=== PATIENT | female | born 1960 | race Caucasian/White ===

== ENCOUNTER 2017-05-11 13:52 | Emergency (ER) | payer OTHER ==
[~2017-05-11] VITALS: Ht 165.1 cm; Wt 76.0 kg
[2017-05-11 13:58] VITALS: BP 130/84; PULSE 93; RESP 16; TEMP 99.6; O2SAT 97
[2017-05-11] MEDS ORDERED: DICY20TA10 PO (14:13)
[2017-05-11] MEDS ORDERED: AMLO10TA2 PO (14:13)
[2017-05-11] MEDS ORDERED: ALPR1TAB3 PO (14:13)
[2017-05-11] MEDS ORDERED: FOLI1TAB6 PO (14:13)
[2017-05-11] MEDS ORDERED: FURO40TA PO (14:13)
[2017-05-11] MEDS ORDERED: HYDR-3798 PO (14:14)
[2017-05-11] MEDS ORDERED: POTA-163 PO (14:14)
[2017-05-11] MEDS ORDERED: ZYPR5TAB PO (14:14)
[2017-05-11] MEDS ORDERED: PROM25TA10 PO (14:14)
[2017-05-11] MEDS ORDERED: TERA2CAP3 PO (14:14)
[2017-05-11] MEDS ORDERED: TIZA4CAP3 PO (14:14)
--- NOTE | 2017-05-11 14:45 | PD ---
HPI Chief Complaint: Fever Time Seen by Provider: 14:32 Travel History International Travel<30 days: No Contact w/Intl Traveler<30days: No Traveled to known affect area: No History of Present Illness HPI So 56-year-old woman who presents to the emergency department multiple complaints. It sounds like she moved to [place] about a month or so ago. She has a history of anxiety. She is being treated for pneumonia when she first moved down. She states she came to the emergency department because she was "just not feeling good". She states that despite being on her for months she has really been out of the house She hasn't been feeling well. She's had persistent cough. She endorses she had some fevers today. She also states she' s had some leg swelling. States that she takes Lasix about one pill a day but doesn't know the doses. She has not established a primary physician or psychiatrist since being down here. She has a generally positive review of systems. History Past Medical History Narrative Medical Edema Hypertension Anxiety Influenza Vaccination: Yes Social History Alcohol Use: No Tobacco Use: No Allergies-Medications (Allergen,Severity, Reaction): Coded Allergies: Penicillin (Verified Adverse Reaction, Mild, HOT AND VOMITS, 05/11/17) Reported Meds & Prescriptions Reported Meds & Active Scripts Active Reported Phenergan (Promethazine HCl) 25 Mg Tablet 25 Mg PO Q6H PRN Tizanidine (Tizanidine HCl) 4 Mg Cap 4 Mg PO TID Hydralazine HCl 10 Mg Tablet 10 Mg PO TID Terazosin (Terazosin HCl) 2 Mg Cap 2 Mg PO HS Zyprexa (Olanzapine) 5 Mg Tab 5 Mg PO BID Potassium Chloride ER (Potassium Chloride) 20 Meq Tab 20 Meq PO BID Dicyclomine (Dicyclomine HCl) 20 Mg Tab 20 Mg PO QID Folic Acid 1 Mg Tablet 1 Mg PO DAILY Furosemide 40 Mg Tab 40 Mg PO DAILY Amlodipine (Amlodipine Besylate) 10 Mg Tab 10 Mg PO DAILY Alprazolam 1 Mg Tab 1 Mg PO Q8H PRN Review of Systems ROS Limitations: Poor Historian Physical Exam Narrative GENERAL: 56-year-old woman, no acute distress. SKIN: Focused skin assessment warm/dry. NECK: Trachea midline. No JVD. CARDIOVASCULAR: Regular rate and rhythm. No murmur appreciated. RESPIRATORY: Lungs are clear to auscultation. Normal rate and effort. No adventitious lung sounds. GASTROINTESTINAL: Abdomen soft, non-tender, nondistended. Hepatic and splenic margins not palpable. MUSCULOSKELETAL: No obvious deformities. Trace edema bilateral lower extremities NEUROLOGICAL: Awake and alert. No obvious cranial nerve deficits. Motor grossly within normal limits. Normal speech. PSYCHIATRIC: Appropriate mood and affect; insight and judgment normal. Data Data Last Documented VS Vital Signs Date Time Temp Pulse Resp B/P Pulse Ox O2 Delivery O2 Flow Rate FiO2 05/11/17 13:58 99.6 93 16 130/84 97 Orders Chest, Pa & Lat (05/11/17 ) [facility] Medical Decision Making Medical Screen Exam Complete: Yes Emergency Medical Condition: Yes Interpretation(s) Chest x-ray: Negative Differential Diagnosis Pneumonia, URI, depression, occult infection, other Narrative Course Medical decision making Is a 56-year-old woman who presents emergent part states she just doesn't feel well after she had pneumonia 4 weeks ago. She has concomitant psychiatric disease as well. She has no primary psychiatrist down here. Chest x-rays negative. I think she needs outpatient primary care follow-up. She was given information for the [facility]. She states she supposed to using albuterol but does not have any. We'll give her prescription for albuterol inhaler, and some Mucinex, and recommend close outpatient follow-up. Diagnosis Primary Impression: Generalized weakness Additional Impression: Cough Referrals: [facility] 1 week [facility] 1 week Additional Instructions: Follow-up with a primary physician here locally. Return to the emergency department for any new or worsening symptoms. Med/Other Pt SpecificInfo: Prescription(s) given Scripts Dextromethorphan-Guaifenesin ER 12 HR (Mucinex DM Maximum Strength)60-1,200 Mg Tab1 Tab PO BID PRN (CHEST CONGESTION AND/OR COUGH) #14 TAB Prov:Sav Godoy MD 05/11/17 Albuterol 18 GM Inh (Ventolin Hfa 18 GM Inh)90 Mcg/Act Aer2 Puff INH Q4-6H PRN ( SHORTNESS OF BREATH) #1 INHALER Prov:Sav Godoy MD 05/11/17 Disposition: 01 DISCHARGE HOME Condition: Stable Sav Godoy MD May 11, 2017 14:45
--- NOTE | 2017-05-11 14:47 | RADRPT ---
EXAM DATE/TIME: 05/11/2017 14:39 [facility] COMPARISON: No previous studies available for comparison. INDICATIONS : Cough MEDICAL HISTORY : None. SURGICAL HISTORY : None. ENCOUNTER: Initial ACUITY: 3 days PAIN SCORE: 0/10 LOCATION: Bilateral chest FINDINGS: PA and lateral views of the chest demonstrate the lungs to be symmetrically aerated without evidence of mass, infiltrate or effusion. The cardiomediastinal contours are unremarkable. Scoliosis otherwi se negative. CONCLUSION: Negative for acute process. Duarte Ceron MD FACR on May 11, 2017 at 14:44 Board Certified Radiologist. This report was verified electronically.
[2017-05-11] MEDS ORDERED: VENTAER INH (15:00)
[2017-05-11] MEDS ORDERED: DEXT1TAB18 PO (15:00)
[2017-05-11 15:10] VITALS: BP 142/76; PULSE 78; RESP 16; O2SAT 97
== END 2017-05-11 15:10 | disposition home or self-care (01) ==
LOC: PHED 13:52
DX: R53.1 Weakness (principal); R05 Cough; R53.81 Other malaise; R50.9 Fever, unspecified; R60.0 Localized edema; I10 Essential (primary) hypertension; Z86.59 Personal history of other mental and behavioral disorders
CPT/HCPCS: 71020; 99283

== ENCOUNTER → 2017-06-04 | Outpatient (CLI) | payer OTHER ==
[~2017-06-04] MED LIST: ALPR1TAB3 PO; AMLO10TA2 PO; DEXT1TAB18 PO; DICY20TA10 PO; FOLI1TAB6 PO; FURO40TA PO; HYDR-3798 PO; POTA-163 PO; PROM25TA10 PO; TERA2CAP3 PO; TIZA4CAP3 PO; VENTAER INH; ZYPR5TAB PO
--- NOTE | 2017-06-05 19:14 | EKG ---
Date Performed: 06/04/2017 Time Performed: 13:27:56 PTAGE: 57 years EKG: Sinus rhythm POSSIBLE RIGHT VENTRICULAR CONDUCTION DELAY BORDERLINE ECG NO PREVIOUS TRACING DOCTOR: Kishan Lara Interpretating Date/Time 06/05/2017 19:12:28
== END ==
LOC: HCAV 13:16
PROVIDERS: ATTEND Psychiatry & Neurology Child & Adolescent Psychiatry
DX: F41.0 Panic disorder [episodic paroxysmal anxiety] (principal); F20.0 Paranoid schizophrenia; F43.12 Post-traumatic stress disorder, chronic; F03.91 Unspecified dementia, unspecified severity, with behavioral disturbance; R94.31 Abnormal electrocardiogram [ECG] [EKG]
CPT/HCPCS: 93005

== ENCOUNTER → 2017-06-26 | Outpatient (CLI) | payer OTHER ==
[~2017-06-26] MED LIST changes: +AMLO10 PO; +BUTA1CAP PO; +CLON0.1T PO; +ESCI10TA PO; +GABA100C4 PO; +IBUP800T23 PO; +LORA-474 PO; +PANT40TA3 PO; +QUET1TAB7 PO; +QUET1TAB8 PO; +SERO100T PO; +TIZA4 PO; +TRAZ100T6 PO; +VENL1CAP38 PO; +VENL25TA PO; +VENL75CA44 PO; +VENL75TA PO; +VIST50CA PO; +ZOFR4TAB3 SL
--- NOTE | 2017-06-27 08:35 | EKG ---
Date Performed: 06/26/2017 Time Performed: 13:08:52 PTAGE: 57 years EKG: Sinus rhythm NORMAL ECG PREVIOUS TRACING : 06/04/2017 13.27 DOCTOR: Adalid Novoa Interpretating Date/Time 06/27/2017 08:29:51
== END ==
LOC: HCAV 12:41
PROVIDERS: ATTEND Psychiatry & Neurology Child & Adolescent Psychiatry
DX: I20.0 Unstable angina (principal); F41.0 Panic disorder [episodic paroxysmal anxiety]; F03.91 Unspecified dementia, unspecified severity, with behavioral disturbance; F43.12 Post-traumatic stress disorder, chronic; F60.3 Borderline personality disorder
CPT/HCPCS: 93005

== ENCOUNTER 2017-07-07 18:44 | Emergency (ER) | payer OTHER ==
[2017-07-07] VITALS (8 sets, daily range): BP systolic 177–224; BP diastolic 82–119; PULSE 68–86; RESP 16–18; TEMP 98.7; O2SAT 98–99
[~2017-07-07] VITALS: Ht 165.1 cm; Wt 80.0 kg
[~2017-07-07 18:44] MED LIST changes: -AMLO10 PO; -BUTA1CAP PO; -CLON0.1T PO; -ESCI10TA PO; -GABA100C4 PO; -IBUP800T23 PO; -LORA-474 PO; -PANT40TA3 PO; -QUET1TAB7 PO; -QUET1TAB8 PO; -SERO100T PO; -TIZA4 PO; -TRAZ100T6 PO; -VENL1CAP38 PO; -VENL25TA PO; -VENL75CA44 PO; -VENL75TA PO; -VIST50CA PO; -ZOFR4TAB3 SL
[2017-07-07] MEDS ORDERED: hydrALAZINE HCL 20 MG/ML VIAL IV PUSH ONE (19:45)
[2017-07-07] MEDS ORDERED: SODIUM CHLORIDE 0.9% FLUSH 10 ML FLUSH IVF PRN (19:45)
[2017-07-07] MEDS ORDERED: ONDANSETRON HCL 4 MG/2 ML VIAL IVP ONE (19:45)
--- NOTE | 2017-07-07 20:14 | RADRPT ---
EXAM DATE/TIME: 07/07/2017 19:54 [facility] COMPARISON: No previous studies available for comparison. INDICATIONS : Right posterior hip pain. MEDICAL HISTORY : Hypertension. SURGICAL HISTORY : None. ENCOUNTER: Initial ACUITY: 3 months PAIN SCORE: 10/10 LOCATION: Right posterior hip FINDINGS: No definite fractures, or dislocations are identified. No definite lytic or sclerotic lesion is seen . The joint space is well maintained. CONCLUSION: Unremarkable study. Sue Renee MD on July 07, 2017 at 20:12 Board Certified Radiologist. This report was verified electronically.
[2017-07-07 20:21] LABS: AUTOMATED NEUTROPHIL # 3.5 TH/MM3 (1.8-7.7); BASOPHIL % 0.2 % (0.0-2.0); EOSINOPHIL % 0.8 % (0.0-4.0); HEMATOCRIT 39.4 % (35.0-46.0); HEMO FLAGS DIFF FINAL; LYMPH % 24.2 % (9.0-44.0); LYMPHOCYTE # 1.2 TH/MM3 (1.0-4.8); MEAN CELL VOLUME 89.4 FL (80.0-100.0); MEAN CORPUSCULAR HEMOGLOBIN 31.2 PG (27.0-34.0); MEAN CORPUSCULAR HGB CONC 34.9 % (32.0-36.0); MONO % 6.7 % (0.0-8.0); NEUT % 68.1 % (16.0-70.0); PLATELET COUNT 197 TH/MM3 (150-450); RED BLOOD COUNT 4.41 MIL/MM3 (4.00-5.30); RED CELL DISTRIBUTION WIDTH 12.7 % (11.6-17.2)
[2017-07-07 20:28] LABS: POTASSIUM 3.4 MEQ/L (3.5-5.1)
[2017-07-07 20:31] LABS: BICARBONATE 27.9 MEQ/L (21.0-32.0); MAGNESIUM 2.1 MG/DL (1.5-2.5)
[2017-07-07 20:59] LABS: BLOOD, URINE NEG (NEG); GLUCOSE,URINE NEG (NEG); KETONE, URINE NEG (NEG); NITRITE,URINE NEG (NEG); PH, URINE 6.5 (5.0-8.5)
[2017-07-07] MEDS ORDERED: cloNIDine HCL 0.1 MG TAB PO ONE (21:00)
[2017-07-07] MEDS ORDERED: LORazepam 1 MG TAB PO ONE (21:00)
[2017-07-07 21:07] LABS: RBC, URINE 0-2 /hpf (0-3); URINE COLOR STRAW (YELLW/STRAW); WBC, URINE 0-2 /hpf (0-5)
[2017-07-07 21:08] LABS: COMMENT (UR) CULT NOT INDICATED; CULTURE IF INDICATED CULT NOT INDICATED; SQUAMOUS EPITHELIAL CELL URINE 0-5 /hpf (0-5)
--- NOTE | 2017-07-07 21:22 | RADRPT ---
EXAM DATE/TIME: 07/07/2017 21:01 [facility] COMPARISON: No previous studies available for comparison. INDICATIONS : Migraine headache for one week RADIATION DOSE: 54.79 CTDIvol (mGy) MEDICAL HISTORY : Hypertension. Migraine, Fibromyalgia SURGICAL HISTORY : None. ENCOUNTER: Initial ACUITY: 1 week PAIN SCALE: 8/10 LOCATION: cranial TECHNIQUE: Multiple contiguous axial images were obtained of the head. Using automated exposure control and adj ustment of the mA and/or kV according to patient size, radiation dose was kept as low as reasonably a chievable to obtain optimal diagnostic quality images. DICOM format image data is available electro nically for review and comparison. FINDINGS: There is no evidence for intracranial hemorrhage, mass effect, mass lesions, edema, or extra-axial fl uid collections. The visualized bony structures appear intact. The ventricles are normal size for t he patient's age. There are no signs of acute infarction for technique. CONCLUSION: Unremarkable study. Sue Renee MD on July 07, 2017 at 21:19 Board Certified Radiologist. This report was verified electronically.
--- NOTE | 2017-07-07 21:24 | PD ---
HPI Chief Complaint: Headache Time Seen by Provider: 19:38 Travel History International Travel<30 days: No Contact w/Intl Traveler<30days: No Traveled to known affect area: No History of Present Illness HPI 57-year-old female presents to the emergency department for complaint of generalized weakness and headache. Patient states she moved here to [place] from [place] in April. Patient states when she moved from [place] to [place] her [place] physician gave her a one-week supply of all of her medications to hold her until she could be established with a [place] physician. Patient states she was seen in the emergency department once for generalized complaints and was told that her medications would not refill to the emergency department and to establish with a primary care doctor. Patient states she has subsequently run out of all of her medications and has been out of them for approximately 2 months. Patient states that she has an appointment with a new primary care provider on Sunday. Patient reports that she's had a headache for approximately one week. Patient has remote history of migraine and states headache is similar to her migraines. Patient complains of headache 7/10 intensity but not sudden onset not thunderclap or worst ever, patient does have associated photophobia but no loss of vision double vision or tunneling of vision and no field cut, patient does complain of generalized weakness but does not complain of any focal numbness tingling weakness of the upper extremities lower extremities or ataxia of gait. Patient does not report any new change in mentation or speech or swallowing. Patient states that she has been on many antianxiety medications for several years and has not been on any medications for the past 2 months. Patient has been informed by her new provider that they will discuss all of her medications on Sunday and no refills have been provided prior to her appointment for Sunday. Patient does not report any injury or fall. She does complain of right hip pain that she states periodically bothers her after an injury numerous years ago does not report any new injury does not report any limitation of range of motion of the extremity or referred lower extremity numbness tingling or weakness. Patient does not report any bladder or bowel dysfunction. Patient does not report any saddle anesthesia. Patient also does not report any recent febrile illness respiratory symptoms or urinary tract symptoms. Patient has not gone to an urgent care or health Department to have her medications refilled in the interim. PFSH Past Medical History Narrative Medical Anxiety depression hypertension fibromyalgia irritable bowel syndrome chronic low back pain no tobacco use no alcohol use; nursing notes reviewed Anxiety: Yes Depression: Yes Diminished Hearing: No Fibromyalgia: Yes Gastrointestinal Disorders: Yes (IBS) Hypertension: Yes Musculoskeletal: Yes (LOW BACK PAIN) ?: Not Past Surgical History Section: Yes Social History Alcohol Use: No Tobacco Use: No Substance Use: No Allergies-Medications (Allergen,Severity, Reaction): Coded Allergies: penicillin G (Verified Adverse Reaction, Mild, HOT AND VOMITS, 07/07/17) Reported Meds & Prescriptions Reported Meds & Active Scripts Active Clonidine (Clonidine HCl) 0.1 Mg Tab 0.1 Mg PO Q12HR PRN Ibuprofen 800 Mg Tab 800 Mg PO Q8H PRN Hydralazine HCl 10 Mg Tablet 10 Mg PO TID 14 Days Mucinex DM Maximum Strength (Dextromethorphan-Guaifenesin ER 12 HR) 60-1,200 Mg Tab 1 Tab PO BID PRN Ventolin Hfa 18 GM Inh (Albuterol Sulfate) 90 Mcg/Act Aer 2 Puff INH Q4-6H PRN Reported Phenergan (Promethazine HCl) 25 Mg Tablet 25 Mg PO Q6H PRN Tizanidine (Tizanidine HCl) 4 Mg Cap 4 Mg PO TID Hydralazine HCl 10 Mg Tablet 10 Mg PO TID Terazosin (Terazosin HCl) 2 Mg Cap 2 Mg PO HS Zyprexa (Olanzapine) 5 Mg Tab 5 Mg PO BID Potassium Chloride ER (Potassium Chloride) 20 Meq Tab 20 Meq PO BID Dicyclomine (Dicyclomine HCl) 20 Mg Tab 20 Mg PO QID Folic Acid 1 Mg Tablet 1 Mg PO DAILY Furosemide 40 Mg Tab 40 Mg PO DAILY Amlodipine (Amlodipine Besylate) 10 Mg Tab 10 Mg PO DAILY Alprazolam 1 Mg Tab 1 Mg PO Q8H PRN Narrative Medication Patient reports she's been out of all of her medications since May 05, 2017 Review of Systems Except as stated in HPI: all other systems reviewed are Neg General / Constitutional: No: Fever, Chills Eyes: No: Diploplia, Blurred Vision HENT: Positive: Headaches, No: Lightheadedness, Congestion, Neck Stiffness, Neck Pain Cardiovascular: No: Chest Pain or Discomfort, Diaphoresis, Syncope, Dyspnea on exertion Respiratory: No: Cough, Shortness of Breath Gastrointestinal: No: Nausea, Vomiting, Diarrhea, Abdominal Pain Genitourinary: No: Urgency, Frequency, Dysuria, Pelvic Pain, Flank Pain Musculoskeletal: Positive: Pain (right hip), No: Limited ROM, Weakness, Cramping, Edema Skin: No Rash Neurologic: Positive: Weakness (generalized), Headache, No: Dizziness, Syncope , Focal Abnormalities, Coordination Problem, Ataxia, Change in Mentation, Slurred Speech, Paresthesia, Incontinence, Sensory Disturbance Psychiatric: Positive: Anxiety, No: Suicidal Ideations Endocrine: No: Heat Intolerance Hematologic/Lymphatic: No: Easy Bruising Physical Exam Narrative GENERAL: Well-developed well-nourished female in no acute distress no respiratory distress SKIN: Warm and dry. HEAD: Atraumatic. Normocephalic. EYES: Pupils equal and round. Extraocular muscles intact. No scleral icterus. No injection or drainage. ENT: No nasal bleeding or discharge. Mucous membranes pink and moist. NECK: Trachea midline. No JVD. Supple no nuchal rigidity no meningismus nontender to palpation along the cervical spine. CARDIOVASCULAR: Regular rate and rhythm. RESPIRATORY: No accessory muscle use. Clear to auscultation. Breath sounds equal bilaterally. GASTROINTESTINAL: Abdomen soft, non-tender, nondistended. Hepatic and splenic margins not palpable. MUSCULOSKELETAL: Extremities without clubbing, cyanosis, or edema. No obvious deformities. NEUROLOGICAL: Awake and alert. No obvious cranial nerve deficits. Motor grossly within normal limits. Five out of 5 muscle strength in the arms and legs. No limb ataxia. No pronator drift. Sensory exam grossly intact as tested. Normal speech. PSYCHIATRIC: Appropriate mood and affect; insight and judgment normal. Data Data Last Documented VS Vital Signs Date Time Temp Pulse Resp B/P Pulse Ox O2 Delivery O2 Flow Rate FiO2 07/07/17 22:29 74 16 178/82 100 07/07/17 21:37 Room Air 07/07/17 19:04 98.7 Orders Complete Blood Count With Diff (07/07/17 19:38) Basic Metabolic Panel (Bmp) (07/07/17 19:38) Ecg Monitoring (07/07/17 19:38) Iv Access Insert/Monitor (07/07/17 19:38) Oximetry (07/07/17 19:38) Sodium Chloride 0.9% Flush (Ns Flush) (07/07/17 19:45) Ondansetron Inj (Zofran Inj) (07/07/17 19:45) Hydralazine Inj (Apresoline Inj) (07/07/17 19:45) Magnesium (Mg) (07/07/17 19:38) Urinalysis - C+S If Indicated (07/07/17 19:38) Hip, Uni(Ap&Lat) W Ap Pelvis (07/07/17 ) Lorazepam (Ativan) (07/07/17 21:00) Clonidine (Catapres) (07/07/17 21:00) Ct Brain W/O Iv Contrast(Rout) (07/07/17 ) Labs Laboratory Tests Test 07/07/17 07/07/17 20:10 20:30 White Blood Count 5.0 TH/MM3 Red Blood Count 4.41 MIL/MM3 Hemoglobin 13.7 GM/DL Hematocrit 39.4 % Mean Corpuscular Volume 89.4 FL Mean Corpuscular Hemoglobin 31.2 PG Mean Corpuscular Hemoglobin 34.9 % Concent Red Cell Distribution Width 12.7 % Platelet Count 197 TH/MM3 Mean Platelet Volume 6.4 FL Neutrophils (%) (Auto) 68.1 % Lymphocytes (%) (Auto) 24.2 % Monocytes (%) (Auto) 6.7 % Eosinophils (%) (Auto) 0.8 % Basophils (%) (Auto) 0.2 % Neutrophils # (Auto) 3.5 TH/MM3 Lymphocytes # (Auto) 1.2 TH/MM3 Monocytes # (Auto) 0.3 TH/MM3 Eosinophils # (Auto) 0.0 TH/MM3 Basophils # (Auto) 0.0 TH/MM3 CBC Comment DIFF FINAL Differential Comment Sodium Level 137 MEQ/L Potassium Level 3.4 MEQ/L Chloride Level 102 MEQ/L Carbon Dioxide Level 27.9 MEQ/L Anion Gap 7 MEQ/L Blood Urea Nitrogen 19 MG/DL Creatinine 1.00 MG/DL Estimat Glomerular Filtration 57 ML/MIN Rate Random Glucose 101 MG/DL Calcium Level 8.9 MG/DL Magnesium Level 2.1 MG/DL Urine Color STRAW Urine Turbidity CLEAR Urine pH 6.5 Urine Specific [place] 1.006 Urine Protein NEG mg/dL Urine Glucose (UA) NEG mg/dL Urine Ketones NEG mg/dL Urine Occult Blood NEG Urine Nitrite NEG Urine Bilirubin NEG Urine Leukocyte Esterase NEG Urine RBC 0-2 /hpf Urine WBC 0-2 /hpf Urine Squamous Epithelial 0-5 /hpf Cells Urine Bacteria NONE /hpf Microscopic Urinalysis Comment CULT NOT INDICATED MDM Medical Decision Making Medical Screen Exam Complete: Yes Emergency Medical Condition: Yes Medical Record Reviewed: Yes Interpretation(s) CT brain noncontrast per reading radiologist no acute abnormalities identified Last Impressions Hip and Pelvis X-Ray 07/07/17 0000 Signed Impressions: Service Date/Time: Friday, July 07, 2017 19:54 - CONCLUSION: Unremarkable study. Sue Renee MD CBC & BMP Diagram 07/07/17 20:10 Vital Signs Date Time Temp Pulse Resp B/P Pulse Ox O2 Delivery O2 Flow Rate FiO2 07/07/17 21:10 76 197/111 07/07/17 20:42 212/109 07/07/17 20:22 68 195/113 07/07/17 20:18 71 202/114 07/07/17 19:22 99 Room Air 07/07/17 19:20 71 18 196/105 07/07/17 19:04 98.7 86 18 224/119 98 UA: wnl Differential Diagnosis Generalized weakness, uncontrolled hypertension, medication noncompliance, anxiety Narrative Course IV access obtained specimens collected and sent for resulting patient administered hydralazine 10 mg IV Minimal response to hydralazine patient ordered to receive Ativan 1 mg by mouth as patient chronically on antianxiety pills clonidine 0.1 mg by mouth for hypertensive control and CT brain noncontrast ordered in view of patient's complaint of ongoing headache most likely related/uncontrolled hypertension CBC is automated differential values in normal range urinalysis normal with no proteinuria basic metabolic panel grossly within normal limits except for mildly decreased potassium of 3.4 @21:08 PM patient did receive Ativan and clonidine at 9:56 PM patient is clinically improved and stable for outpatient management; patient has been provided with prescription for her blood pressure medication as well as an as needed clonidine prescription. Patient is encouraged to keep her appointment as scheduled on Sunday with her new primary care provider Diagnosis Primary Impression: Hypertension Qualified Code: I10 - Essential hypertension Additional Impressions: Medication refill Noncompliance with medications Sciatica Qualified Code: M54.31 - Sciatica of right side Referrals: Primary Care Physician 3 days keep sceduled appointment with new PCP Patient Instructions: General Instructions Additional Instructions: Keep scheduled appointment with new primary on Sunday as planned Take blood pressure medication as prescribed Increase fluid hydration Add potassium containing foods and beverages to dietary intake May take prescription ibuprofen as needed for sciatica pain Med/Other Pt SpecificInfo: Prescription(s) given Scripts Clonidine 0.1 Mg Tab0.1 Mg PO Q12HR PRN (SBP>180, DBP>95) #5 TAB Ref 0 Prov:Justa Estrada MD 07/07/17 Ibuprofen 800 Mg [id number] Mg PO Q8H PRN (PAIN GREATER THAN 5) #15 TAB Ref 0 Prov:Justa Estrada MD 07/07/17 Hydralazine HCl 10 Mg [id number] Mg PO TID 14 Days Prov:Justa Estrada MD 07/07/17 Disposition: 01 DISCHARGE HOME Condition: Stable Justa Estrada MD Jul 07, 2017 21:24
[2017-07-07] MEDS ORDERED: IBUP800T23 PO (21:55)
[2017-07-07] MEDS ORDERED: HYDR-3798 PO (21:55)
[2017-07-07] MEDS ORDERED: CLON0.1T PO (21:55)
== END 2017-07-07 22:41 | disposition home or self-care (01) ==
LOC: PHED 18:44
DX: I10 Essential (primary) hypertension (principal); M54.41 Lumbago with sciatica, right side; Z79.899 Other long term (current) drug therapy; Z91.14 Patient's other noncompliance with medication regimen
CPT/HCPCS: 70450; 73502; 80048; 81001; 83735; 85025; 96374; 96375; 99285; J0360; J2405

== ENCOUNTER 2017-07-08 19:23 | Emergency (ER) | payer OTHER ==
[~2017-07-08] VITALS: Ht 165.1 cm; Wt 80.0 kg
[~2017-07-08 19:23] MED LIST changes: +CLON0.1T PO; +IBUP800T23 PO
[2017-07-08 19:40] VITALS: BP 175/93; PULSE 86; RESP 18; TEMP 99.3; O2SAT 97
[2017-07-08 21:21] VITALS: BP 180/112; PULSE 71; RESP 20; O2SAT 97
[2017-07-08] MEDS ORDERED: cloNIDine HCL 0.1 MG TAB PO ONE (21:30)
--- NOTE | 2017-07-08 21:32 | PD ---
HPI Chief Complaint: Hypertension Time Seen by Provider: 21:28 Travel History International Travel<30 days: No Contact w/Intl Traveler<30days: No Traveled to known affect area: No History of Present Illness HPI 57-year-old female presents to the emergency department for complaint of headache and hypertension. Patient was seen in the emergency department last evening for complaint of headache and hypertension was identified to be hypertensive and out of her medications for 2 months. Patient was given a refill of her prescription medications after patient was treated in the emergency department antihypertensive medications. Patient is clinically improved and stable for outpatient management at that time. Patient reportedly had her daughter drop of her prescriptions this morning and reportedly the pharmacy stated they did not have those medications available and that she would have to wait until tomorrow morning at 10 AM to have the prescriptions filled. Patient states because of recurrent headache decided to return to the emergency department for reevaluation of possible indication administration. Patient does not report any other concerns or complaints. No loss of vision no change of vision no change in mentation no change in speech any upper extremity or lower extremity numbness tingling or weakness ataxia of gait also no chest pain palpitations shortness of breath nausea vomiting or other concerns. PFSH Past Medical History Narrative Medical Hypertension anxiety depression fibromyalgia and irritable bowel syndrome chronic back pain sciatica; nursing notes reviewed Anxiety: Yes Depression: Yes Diminished Hearing: No Fibromyalgia: Yes Gastrointestinal Disorders: Yes (IBS) Hypertension: Yes Musculoskeletal: Yes (LOW BACK PAIN) Tetanus Vaccination: Unknown Influenza Vaccination: Yes Past Surgical History Section: Yes Social History Alcohol Use: No Tobacco Use: No Substance Use: No Allergies-Medications (Allergen,Severity, Reaction): Coded Allergies: penicillin G (Verified Adverse Reaction, Mild, HOT AND VOMITS, 07/08/17) Reported Meds & Prescriptions Reported Meds & Active Scripts Active Clonidine (Clonidine HCl) 0.1 Mg Tab 0.1 Mg PO Q12HR PRN Ibuprofen 800 Mg Tab 800 Mg PO Q8H PRN Hydralazine HCl 10 Mg Tablet 10 Mg PO TID 14 Days Mucinex DM Maximum Strength (Dextromethorphan-Guaifenesin ER 12 HR) 60-1,200 Mg Tab 1 Tab PO BID PRN Ventolin Hfa 18 GM Inh (Albuterol Sulfate) 90 Mcg/Act Aer 2 Puff INH Q4-6H PRN Reported Phenergan (Promethazine HCl) 25 Mg Tablet 25 Mg PO Q6H PRN Tizanidine (Tizanidine HCl) 4 Mg Cap 4 Mg PO TID Hydralazine HCl 10 Mg Tablet 10 Mg PO TID Terazosin (Terazosin HCl) 2 Mg Cap 2 Mg PO HS Zyprexa (Olanzapine) 5 Mg Tab 5 Mg PO BID Potassium Chloride ER (Potassium Chloride) 20 Meq Tab 20 Meq PO BID Dicyclomine (Dicyclomine HCl) 20 Mg Tab 20 Mg PO QID Folic Acid 1 Mg Tablet 1 Mg PO DAILY Furosemide 40 Mg Tab 40 Mg PO DAILY Amlodipine (Amlodipine Besylate) 10 Mg Tab 10 Mg PO DAILY Alprazolam 1 Mg Tab 1 Mg PO Q8H PRN Review of Systems Except as stated in HPI: all other systems reviewed are Neg Physical Exam Narrative GENERAL: Well-developed well-nourished female in no acute distress no respiratory distress SKIN: Warm and dry. HEAD: Normocephalic. EYES: No scleral icterus. No injection or drainage. NECK: Supple, trachea midline. No JVD or lymphadenopathy. CARDIOVASCULAR: Regular rate and rhythm without murmurs, gallops, or rubs. RESPIRATORY: Breath sounds equal bilaterally. No accessory muscle use. GASTROINTESTINAL: Abdomen soft, non-tender, nondistended. MUSCULOSKELETAL: No cyanosis, or edema. BACK: Nontender without obvious deformity. No CVA tenderness. Data Data Last Documented VS Vital Signs Date Time Temp Pulse Resp B/P (MAP) Pulse Ox O2 Delivery O2 Flow Rate FiO2 07/08/17 21:23 Room Air 07/08/17 21:21 71 20 180/112 (134) 97 07/08/17 19:40 99.3 Orders Orders Clonidine (Catapres) (07/08/17 21:30) [facility] Medical Decision Making Medical Screen Exam Complete: Yes Emergency Medical Condition: Yes Medical Record Reviewed: Yes Differential Diagnosis hypertension, hypertensive urgency, medical noncompliance Narrative Course Patient presents for administration of antihypertensive medications as prescriptions are not available reportedly at the pharmacy; patient did respond yesterday hydralazine which is one of her medications prescribed causing 10 mg 3 times a day and also clonidine 0.1 mg administered yesterday while in the emergency department. Patient isn't identified to have no focality on exam but does have hypertensive blood pressure therefore administered clonidine 0.1 mg by mouth BP: 159/95 @ 22:15 PM feels well and requesting discharge --patient has Rx to roll picker in the AM Diagnosis Primary Impression: Hypertension Referrals: Primary Care Physician 2 days Patient Instructions: General Instructions Additional Instructions: Take blood pressure medication as previously prescribed Return to the emergency department for any concerns or change in condition Keep scheduled appointment as planned with primary care provider on Sunday Increase fluid hydration May take acetaminophen/Tylenol as needed for minor discomfort or for fever 100.4 F or greater Med/Other Pt SpecificInfo: No Change to Meds Disposition: 01 DISCHARGE HOME Condition: Stable Justa Estrada MD Jul 08, 2017 21:32
[2017-07-08 22:25] VITALS: BP 172/68
== END 2017-07-08 22:26 | disposition home or self-care (01) ==
LOC: PHED 19:23
DX: I10 Essential (primary) hypertension (principal); K58.9 Irritable bowel syndrome, unspecified; M79.7 Fibromyalgia; Z88.0 Allergy status to penicillin
CPT/HCPCS: 99283

== ENCOUNTER 2017-07-21 13:15 | Inpatient (IN) | payer OTHER ==
[2017-07-21] VITALS (43 sets, daily range): BP systolic 173–239; BP diastolic 90–129; PULSE 68–114; RESP 16–70; TEMP 98.4–99.7; O2SAT 96–98
[2017-07-21] MEDS ORDERED: TRAZ100T6 PO (13:38)
[2017-07-21] MEDS ORDERED: ESCI10TA PO (13:38)
--- NOTE | 2017-07-21 13:38 | PD ---
HPI Chief Complaint: Psychiatric Symptoms Time Seen by Provider: 13:20 Travel History International Travel<30 days: No Contact w/Intl Traveler<30days: No Traveled to known affect area: No History of Present Illness HPI This is a 57-year-old female who presents to the emergency department having been behaving oddly since last evening. Patient evidently has a history of schizophrenia and mental illness. Her daughter recently took over her care about a year ago. She says she's been doing really well until last evening when she started to act very childlike, with sterile off into space and face some bizarre things and then this morning she was unwilling to talk and was rigid. She says if she moved her arm into a position she wouldn't move it and she refused to walk. She says this is happened to her once before and she ended up admitted to a psychiatric facility. Patient recently started with Dr. Junior as her primary care physician. She was started on trazodone and citalopram. Her daughter feels these medications are making her worse. She has also had trouble with her blood pressure and was started on clonidine. PFSH Past Medical History Anxiety: Yes Depression: Yes Cardiovascular Problems: Yes (htn) Diminished Hearing: No Fibromyalgia: Yes Gastrointestinal Disorders: Yes (IBS) Hypertension: Yes Musculoskeletal: Yes (LOW BACK PAIN) Past Surgical History Section: Yes Social History Alcohol Use: No Tobacco Use: No Substance Use: No Allergies-Medications (Allergen,Severity, Reaction): Coded Allergies: penicillin G (Verified Adverse Reaction, Mild, HOT AND VOMITS, 07/21/17) Reported Meds & Prescriptions Reported Meds & Active Scripts Active Clonidine (Clonidine HCl) 0.1 Mg Tab 0.1 Mg PO Q12HR PRN Reported Trazodone (Trazodone HCl) 100 Mg Tablet 100 Mg PO HS Escitalopram (Escitalopram Oxalate) 10 Mg Tab 10 Mg PO DAILY Hydralazine HCl 10 Mg Tablet 10 Mg PO TID Review of Systems Except as stated in HPI: all other systems reviewed are Neg Physical Exam Narrative GENERAL: Older appearing than stated age SKIN: Focused skin assessment warm and dry. HEAD: Atraumatic. Normocephalic. EYES: Pupils equal and round. No injection or drainage. ENT: Moist mucous membranes NECK: Trachea midline. CARDIOVASCULAR: Regular rate and rhythm. No murmur appreciated. RESPIRATORY: Clear to auscultation. Breath sounds equal bilaterally. GASTROINTESTINAL: Abdomen soft, non-tender, nondistended. MUSCULOSKELETAL: No obvious deformities. NEUROLOGICAL: Doesn't speak, does seem to have some volitional resistance to movement of her arms and legs, has fixed downward gaze, contracts her neck forward PSYCHIATRIC: Poor eye contact, holding her neck flexed, nonverbal Data Data Last Documented VS Vital Signs Date Time Temp Pulse Resp B/P (MAP) Pulse Ox O2 Delivery O2 Flow Rate FiO2 07/21/17 17:38 73 16 207/110 (142) 96 07/21/17 15:34 Room Air 07/21/17 13:21 98.4 Orders Orders Complete Blood Count With Diff (07/21/17 13:32) Comprehensive Metabolic Panel (07/21/17 13:32) ^ Insert Iv (07/21/17 13:32) Thyroid Stimulating Hormone (07/21/17 13:32) Drug Screen, Random Urine (07/21/17 13:32) Alcohol (Ethanol) (07/21/17 13:32) Ct Brain W/O Iv Contrast(Rout) (07/21/17 ) Labetalol Inj (Trandate Inj) (07/21/17 13:45) Sodium Chlor 0.9% 1000 Ml Inj (Ns 1000 M (07/21/17 13:45) Urinalysis - C+S If Indicated (07/21/17 15:22) Cath For Specimen (07/21/17 15:22) Clonidine 0.1 Mg Patch.7d (Catapres-Tts (07/21/17 15:30) Labetalol Inj (Trandate Inj) (07/21/17 16:30) Labetalol Inj (Trandate Inj) (07/21/17 17:00) Hydralazine Inj (Apresoline Inj) (07/21/17 18:00) Admit Order (Ed Use Only) (07/21/17 17:55) Labs Laboratory Tests Test 07/21/17 13:58 07/21/17 15:30 White Blood Count 6.6 TH/MM3 Red Blood Count 4.78 MIL/MM3 Hemoglobin 14.3 GM/DL Hematocrit 43.0 % Mean Corpuscular Volume 89.9 FL Mean Corpuscular Hemoglobin 29.9 PG Mean Corpuscular Hemoglobin Concent 33.2 % Red Cell Distribution Width 12.5 % Platelet Count 203 TH/MM3 Mean Platelet Volume 6.5 FL Neutrophils (%) (Auto) 80.9 % Lymphocytes (%) (Auto) 12.3 % Monocytes (%) (Auto) 6.5 % Eosinophils (%) (Auto) 0.1 % Basophils (%) (Auto) 0.2 % Neutrophils # (Auto) 5.4 TH/MM3 Lymphocytes # (Auto) 0.8 TH/MM3 Monocytes # (Auto) 0.4 TH/MM3 Eosinophils # (Auto) 0.0 TH/MM3 Basophils # (Auto) 0.0 TH/MM3 CBC Comment DIFF FINAL Differential Comment Blood Urea Nitrogen 11 MG/DL Creatinine 1.00 MG/DL Random Glucose 107 MG/DL Total Protein 8.5 GM/DL Albumin 4.7 GM/DL Calcium Level 9.2 MG/DL Alkaline Phosphatase 109 U/L Aspartate Amino Transf (AST/SGOT) 20 U/L Alanine Aminotransferase (ALT/SGPT) 23 U/L Total Bilirubin 0.5 MG/DL Sodium Level 133 MEQ/L Potassium Level 3.5 MEQ/L Chloride Level 98 MEQ/L Carbon Dioxide Level 21.7 MEQ/L Anion Gap 13 MEQ/L Estimat Glomerular Filtration Rate 57 ML/MIN Thyroid Stimulating Hormone 3rd Gen 3.790 uIU/ML Ethyl Alcohol Level LESS THAN 3 MG/DL Urine Collection Type CATH Urine Color YELLOW Urine Turbidity SLIGHT Urine pH 6.0 Urine Specific [place] 1.017 Urine Protein 100 mg/dL Urine Glucose (UA) NEG mg/dL Urine Ketones 80 OR GREATER mg/dL Urine Occult Blood TRACE Urine Nitrite NEG Urine Bilirubin NEG Urine Leukocyte Esterase NEG Urine RBC 4-9 /hpf Urine Transitional Epithelial Cells 0-5 /hpf Urine Amorphous Sediment MOD Urine Fine Granular Casts 0-2 /lpf Microscopic Urinalysis Comment CATH-CULT NOT IND Urine Collection Time 1530 Urine Opiates Screen NEG Urine Barbiturates Screen NEG Urine Amphetamines Screen NEG Urine Benzodiazepines Screen NEG Urine Cocaine Screen NEG Urine Cannabinoids Screen NEG MDM Medical Decision Making Medical Screen Exam Complete: Yes Emergency Medical Condition: Yes Interpretation(s) Hypertensive, tachycardic No leukocytosis Hyponatremia TSH is 3.79 Alcohols negative Drug screen is negative Urinalysis: Some blood and ketones Differential Diagnosis Hypertensive urgency, hypertensive emergency, intracranial hemorrhage, hypertensive encephalopathy, psychosis, schizophrenia Narrative Course This is a 57-year-old female who presents to the emergency department not walking or speaking today. She evidently was acting very childlike last evening. She has a history of schizophrenia and has had no episode once like this before where she ended up admitted to a psychiatric hospital. My impression of her physical exam at that she is displaying negative symptoms of schizophrenia. I don't think this is an acute neurologic emergency. Some of her resistance to movement appears volitional. She's not rigid or hyperthermic to suggest serotonin syndrome or NMS. Labs are obtained which are reassuring. She is quite hypertensive. She only takes clonidine at home. She was given 30 mg of IV labetalol with little change in her blood pressure. She'll be given hydralazine and admitted for continued blood pressure control and psychiatric consultation. Critical Care Narrative Aggregate critical care time was 40 minutes. Time to perform other separately billable procedures was not included in the critical care time. My time did not include minutes spent treating any other patients simultaneously or on activities that did not directly contribute to the patient's treatment. The services I provided to this patient were to treat and/or prevent clinically significant deterioration that could result in: Disability, I provided critical care services requiring my management, as noted below: Chart data review, documentation time, medication orders and management, vital sign assessments/reviewing monitor data, ordering and reviewing lab tests, ordering and interpreting/reviewing x-rays and diagnostic studies, care of the patient and discussion of the patient with the admitting physicians. Physician Communication Physician Communication Discussed with Dr. Mendoza Diagnosis Primary Impression: Hypertensive urgency Additional Impression: Schizophrenia Qualified Codes: F20.9 - Schizophrenia, unspecified Admitting Information Admitting Physician Requests: it Lucía Bee MD Jul 21, 2017 13:38
[2017-07-21] MEDS ORDERED: SODIUM CHLOR 0.9% 1000 ML INJ 1,000 ML IV ONE (13:45)
[2017-07-21] MEDS ORDERED: LABETALOL HCL 100 MG/20 ML VIAL IV PUSH ONE ×3 (13:45→17:00)
[2017-07-21 14:09] LABS: AUTOMATED NEUTROPHIL # 5.4 TH/MM3 (1.8-7.7); BASOPHIL % 0.2 % (0.0-2.0); EOSINOPHIL % 0.1 % (0.0-4.0); HEMO FLAGS DIFF FINAL; LYMPH % 12.3 % (9.0-44.0); LYMPHOCYTE # 0.8 TH/MM3 (1.0-4.8); MEAN CELL VOLUME 89.9 FL (80.0-100.0); MEAN CORPUSCULAR HEMOGLOBIN 29.9 PG (27.0-34.0); MEAN CORPUSCULAR HGB CONC 33.2 % (32.0-36.0); MONO % 6.5 % (0.0-8.0); NEUT % 80.9 % (16.0-70.0); PLATELET COUNT 203 TH/MM3 (150-450); RED BLOOD COUNT 4.78 MIL/MM3 (4.00-5.30); RED CELL DISTRIBUTION WIDTH 12.5 % (11.6-17.2); WHITE BLOOD COUNT 6.6 TH/MM3 (4.0-11.0)
[2017-07-21 14:18] LABS: CHLORIDE 98 MEQ/L (98-107); POTASSIUM 3.5 MEQ/L (3.5-5.1); SODIUM (NA) 133 MEQ/L (136-145)
[2017-07-21 14:21] LABS: ANION GAP 13 MEQ/L (5-15); BICARBONATE 21.7 MEQ/L (21.0-32.0)
[2017-07-21 14:22] LABS: BLOOD UREA NITROGEN 11 MG/DL (7-18)
[2017-07-21 14:24] LABS: ALCOHOL LESS THAN 3 MG/DL (0-5); ALT (GPT) 23 U/L (10-53)
[2017-07-21 14:25] LABS: AST (GOT) 20 U/L (15-37); GLOMERULAR FILTRATION RATE 57 ML/MIN (>89)
[2017-07-21 14:26] LABS: TOTAL BILIRUBIN ADULT 0.5 MG/DL (0.2-1.0)
[2017-07-21 14:27] LABS: ALKALINE PHOSPHATASE 109 U/L (45-117)
--- NOTE | 2017-07-21 15:10 | RADRPT ---
EXAM DATE/TIME: 07/21/2017 14:52 [facility] COMPARISON: CT BRAIN W/O CONTRAST, July 07, 2017, 21:01. INDICATIONS : Psychiatric issues, non verbal communication. RADIATION DOSE: CTDIvol (mGy) MEDICAL HISTORY : Hypertension. Psych. IBS SURGICAL HISTORY : Non-responsive. ENCOUNTER: Initial ACUITY: 1 day PAIN SCALE: Non-responsive LOCATION: cranial TECHNIQUE: Multiple contiguous axial images were obtained of the head. Using automated exposure control and adj ustment of the mA and/or kV according to patient size, radiation dose was kept as low as reasonably a chievable to obtain optimal diagnostic quality images. DICOM format image data is available electro nically for review and comparison. FINDINGS: CEREBRUM: The ventricles are normal for age. No evidence of midline shift, mass lesion, hemorrhage or acute in farction. No extra-axial fluid collections are seen. POSTERIOR FOSSA: The cerebellum and brainstem are intact. The 4th ventricle is midline. The cerebellopontine angle i s unremarkable. EXTRACRANIAL: The visualized portion of the orbits is intact. SKULL: The calvaria is intact. No evidence of skull fracture. CONCLUSION: Negative for fracture or dislocation. Follow up in 7-10 days is suggested if symptoms persist. Duarte Ceron MD FACR on July 21, 2017 at 15:08 Board Certified Radiologist. This report was verified electronically.
[2017-07-21] MEDS ORDERED: cloNIDine HCL 0.1 MG/24 HR PATCH T-DERMAL ONE (15:30)
[2017-07-21 15:41] LABS: BLOOD, URINE TRACE (NEG); GLUCOSE,URINE NEG (NEG); KETONE, URINE 80 OR GREATER mg/dL (NEG); NITRITE,URINE NEG (NEG)
[2017-07-21 15:49] LABS: METHOD OF COLLECTION CATH; URINE COLOR YELLOW (YELLW/STRAW)
[2017-07-21 15:55] LABS: COMMENT (UR) CATH-CULT NOT IND; COMMENT2 (UR) MUCOUS PRESENT; CULTURE IF INDICATED CATH CULTURE NOT IND
[2017-07-21 15:56] LABS: TRANSITIONAL EPI CELLS, URINE 0-5 /hpf
[2017-07-21] MEDS ORDERED: NALOXONE HCL 0.4 MG/ML AMP IV PRN (18:00)
[2017-07-21] MEDS ORDERED: SENNOSIDES 8.6 MG TAB PO PRN (18:00)
[2017-07-21] MEDS ORDERED: hydrALAZINE HCL 20 MG/ML VIAL IV PUSH ONE (18:00)
[2017-07-21] MEDS ORDERED: LACTULOSE SYRUP 20 GM/30 ML CUP PO PRN (18:00)
[2017-07-21] MEDS ORDERED: MAGNESIUM HYDROXIDE SUSP 30 ML CUP PO PRN (18:00)
[2017-07-21] MEDS ORDERED: BISACODYL 10 MG SUPP RECTAL PRN (18:00)
[2017-07-21] MEDS ORDERED: SODIUM CHLORIDE 0.9% FLUSH 10 ML FLUSH IV FLUSH PRN (18:00)
[2017-07-21] MEDS: hydrALAZINE HCL 20 MG/ML VIAL IV PUSH SCH (19:42)
[2017-07-21] MEDS: DOCUSATE SODIUM 50 MG/SENNA 8.6 MG TAB PO SCH (21:00)
[2017-07-21] MEDS: ENALAPRILAT 1.25 MG/ML VIAL IV PUSH PRN (21:17)
[2017-07-21] MEDS: SODIUM CHLORIDE 0.9% FLUSH 10 ML FLUSH IV FLUSH SCH (21:17)
[2017-07-21] MEDS: LABETALOL HCL 100 MG/20 ML VIAL IV PUSH PRN (22:54)
[2017-07-22] VITALS (49 sets, daily range): BP systolic 152–198; BP diastolic 77–101; PULSE 70–98; RESP 16–43; TEMP 97.6–99.9; O2SAT 90–97
[2017-07-22] MEDS: hydrALAZINE HCL 20 MG/ML VIAL IV PUSH SCH ×4 (00:05→16:46)
[2017-07-22] MEDS: ONDANSETRON HCL 4 MG/2 ML VIAL IV PUSH PRN ×2 (01:21→18:25)
[2017-07-22] MEDS: ENALAPRILAT 1.25 MG/ML VIAL IV PUSH PRN ×2 (04:14→18:24)
[2017-07-22 06:23] LABS: AUTOMATED NEUTROPHIL # 8.8 TH/MM3 (1.8-7.7); BASOPHIL # 0.3 TH/MM3 (0-0.2); HEMATOCRIT 41.5 % (35.0-46.0); LYMPH % 11.1 % (9.0-44.0); LYMPHOCYTE # 1.2 TH/MM3 (1.0-4.8); MEAN CELL VOLUME 90.6 FL (80.0-100.0); MEAN CORPUSCULAR HEMOGLOBIN 30.5 PG (27.0-34.0); MEAN CORPUSCULAR HGB CONC 33.6 % (32.0-36.0); MONO % 6.3 % (0.0-8.0); NEUT % 79.6 % (16.0-70.0); PLATELET COUNT 205 TH/MM3 (150-450); RED BLOOD COUNT 4.57 MIL/MM3 (4.00-5.30); RED CELL DISTRIBUTION WIDTH 12.7 % (11.6-17.2)
[2017-07-22 06:24] LABS: HEMO FLAGS DIFF FINAL
[2017-07-22 06:29] LABS: POTASSIUM 3.5 MEQ/L (3.5-5.1)
[2017-07-22 06:32] LABS: BICARBONATE 19.5 MEQ/L (21.0-32.0)
[2017-07-22] MEDS: LABETALOL HCL 100 MG/20 ML VIAL IV PUSH PRN (08:19)
[2017-07-22] MEDS: DOCUSATE SODIUM 50 MG/SENNA 8.6 MG TAB PO SCH ×2 (09:00→20:49)
--- NOTE | 2017-07-22 10:36 | MH ---
cc: TONY WHATLEY MD DATE OF ADMISSION: 07/21/2017 CHIEF COMPLAINT Psychotic symptom. HISTORY OF PRESENT ILLNESS This is a 57-year-old female with past medical-surgical history significant for anxiety, depression, hypertension, fibromyalgia, EBS, low back pain, history of in the past, came to the ER at [facility] with behavior all day since last evening. Evidently she has a history of schizophrenia and mental illness. The daughter recently took over the care about a year ago. She said that she has been really well until the last evening when she started to act very childlike with staring off into space and said some bizarre things and then this morning she was unwilling to talk and was rigid and she said that she had moved her arm into a position and she did not move it and she refuses to talk. She said this has happened to her once before and she ended up admitted to the psychiatric facility. The patient started seeing me at my office. She has been started on trazodone and citalopram. Her daughter feels that these medications are making her worse. She also was started on clonidine for blood pressure. Other than that nothing significant. When I examined the patient, the patient is not able to communicate, unable to talk. Other than that nothing significant. PAST MEDICAL/SURGICAL HISTORY Past medical-surgical history as dictated above. SOCIAL HISTORY Does not smoke, drink or take any drugs. Lives at home. FAMILY HISTORY Nothing significant. ALLERGIES PENICILLIN G. MEDICATIONS Include 1. Clonidine 0.1 mg p.o. q.12 hours. 2. Trazodone 100 mg p.o. at bedtime. 3. Citalopram 10 mg p.o. daily. 4. Hydralazine 10 mg p.o. t.i.d. REVIEW OF SYSTEMS Unable to obtain because the patient is not comuunicating. PHYSICAL EXAMINATION GENERAL: This is a 57-year-old female laying on the bed, not in acute distress. VITAL SIGNS: Temperature is 97.6, heart rate is 80, respirations 20, blood pressure 168/83, O2 saturation 97% at room air. HEENT: Normocephalic, EOMI. PERRL. Oral mucosa moist. NECK: Neck is supple. No visible thyromegaly or neck mass. Trachea is central. CVS: Regular rate and rhythm. RESPIRATIONS: Clear to auscultation bilaterally. ABDOMEN: Soft, nontender. Bowel sounds audible. EXTREMITIES: No cyanosis or clubbing. NEURO: The patient cannot speak, moving all extremities, fixed dominant gaze. PSYCHE: The patient is nonverbal. LABORATORY DATA Include CBC is totally unremarkable except for MPV 6.6 low, and neutrophil percentage is 79.6 high. BMP totally unremarkable except for sodium was 133, now it is 137, carbon dioxide was low 19.5, anion gap is 16 high, GFR 58 low. Her glucose random 139, total protein 8.5 high, TSH 3.79 high. Urine tox screen negative. Alcohol level less than 3. Urinalysis done shows 80 or greater ketones, RBC 4.9, nitrite negative, occult blood trace, 4-9 RBC, total protein 100 high. Specific gravity 1.017, pH 6.0, leukocyte esterase negative. IMAGING STUDIES CT brain was done and shows negative for fracture or dislocation. ASSESSMENT/PLAN 1. This is a 57-year female who came to the ER diagnosed with altered mental status/psychotic behavior. The patient's CT brain does not show anything acute. I will check metabolic workup and also the patient has high TSH 3.79. I will check other metabolic workup. Urine tox screen negative. Alcohol level less than 3. Urinalysis did not show any urinary tract infection. I will consult neurology for further recommendation too. Psychiatry already consulted. I will hold on trazodone and the citalopram. 2. Hypertension, uncontrolled. The patient started on clonidine. I will start the patient on enalapril IV p.r.n., hypertension along with clonidine. 3. Mild hyponatremia which has resolved. 4. DVT prophylaxis with SCD. 5. GI prophylaxis with Protonix 40 mg IV daily. We are going to manage the patient on a daily basis and make recommendation on a daily basis. Tony Whatley MD EA/SANTIAGO /9:54 AM /10:12 AM
[2017-07-22 10:50] LABS: MAGNESIUM 1.9 MG/DL (1.5-2.5)
--- NOTE | 2017-07-22 11:08 | MB ---
cc: LORRIE WILKINSON M.D. DATE OF CONSULTATION: 07/22/2017. REASON FOR CONSULTATION: Change in mental status. HISTORY OF PRESENT ILLNESS: This is a 57-year-old woman with a known history of anxiety, depression, hypertension, schizophrenia who came in to the hospital due to what looks like a decompensated state. She started living with her daughter recently and has had quite a few issues going on. She is from her mother who she has been living with for a long time. Unfortunately her mother has Alzheimer's and the daughter could not take both family members so the mother is now with the son. She has also had some other issues with other family members. The night before she came in she started acting very childlike and was found to be staring off into space, bizarre. This morning she is lying in bed, forced eye closure and nodded to me that she did not want to eat breakfast and then started making musical type notes with her hands as if she was listening to music and crossing her legs but nonverbal. PAST MEDICAL HISTORY: As stated. SOCIAL HISTORY: She lives with her daughter. She does not smoke or drink,. FAMILY HISTORY: Noncontributory. ALLERGIES: PENICILLIN. HOME MEDICATIONS: 1. Clonidine 0.1 milligrams q. 12 hours. 2. Trazodone 100 milligrams at bedtime. 3. Citalopram 10 milligrams daily. 4. Hydralazine 10 milligrams three times a day. PHYSICAL EXAMINATION: GENERAL: On exam, she is a 57-year-old woman lying in bed in no acute distress. VITAL SIGNS: Temperature 97.6, pulse 80, respiratory rate 20, blood pressure 168/83. She has forced eye closure. When I open her eyes, pupils are reactive. She has no gaze deviation. No facial asymmetry. She seems to move all four extremities. DTRs are 2+. Toes - withdraws. Does not smoke. Nonverbal currently. LABS: Reviewed. Toxicology is negative. IMAGING STUDIES: CT of the head did not show anything acute. IMPRESSION: Change in mental status likely due to schizophrenia decompensation. I would recommend psychiatry see the patient. I will go ahead and order an EEG. Certain labs are still pending. Continue current care. I did want to order an MRI of the brain. If she is not improving, certainly that can be a consideration; however, I think at this point, it would be of low yield. Continue current care. MD ELIAS Mccoy/HANG /10:57 AM /11:00 AM
[2017-07-22] MEDS: PANTOPRAZOLE SODIUM 40 MG VIAL IV PUSH SCH (11:49)
[2017-07-22] MEDS: SODIUM CHLORIDE 0.9% FLUSH 10 ML FLUSH IV FLUSH SCH ×2 (11:49→20:49)
[2017-07-22] MEDS: DEXT 5%-NACL 0.9% 1000 ML INJ 1,000 ML IV SCH ×2 (12:25→21:47)
--- NOTE | 2017-07-22 15:42 | PD.PSY.CON ---
Provisional Diagnosis Admission Date Jul 21, 2017 at 17:57 [place]. 1. Catatonia, suspected 2. History of schizophrenia [place] II. Deferred History of Present Illness Service Psychiatry Consult Requested By Dr. Mendoza Reason for Consult Psychosis Primary Care Physician Tony Junior MD HPI Ms. Gann is a 57 year-old female with a history of unclear psychiatric history, possible schizophrenia diagnosis, who presented to the ED brought in by her daughter for odd behavior. Reviewing the EMR, I see no prior psychiatric contact within our system. Patient seen and examined. Chart reviewed. Case discussed with RN. Neuro consultation and workup noted. On my exam patient is stuporous and mute. She presents with purposeless movements including shoulder shrugging and neck flexion/extension. Posturing noted. [place] noted. [place] noted. No waxy flexibility. She does not follow simple commands. Based on my evaluation and collateral from daughter, below, I suspect catatonia and have asked the nurse to administer 2mg Ativan slow IV push over 2 minutes. I have d/ w daughter R/B/A of Ativan challenge. Patient is unable to provide any past psychiatric, family, chem dep or social history because of her current mental status. Patient's daughter, Ms. Barragan, is at the bedside. She reports that she had limited contact with mother until earlier this year when she brought patient down from [place] to live with her. She notes that patient had been residing in a nursing facility in [place] and had been on Xanax. Patient lived with daughter for several months without serious incident. She did exhibit some odd behaviors even then, such as hoarding toilet paper rolls, believing that people were watching her, stealing items of no value, etc. Daughter also noted a memory decrement since she last was in close contact with patient. Daughter took patient to Dr. Gaston at [facility] to establish psychiatric care, and patient has had several visits with Dr. Gaston but was not started on any psychotropics until about 1 week ago when she was started on Zyprexa and Effexor at low dose. Daughter notes that on Sunday before the weekend, patient became more confused and became immobile, and daughter brought patient into ED. She notes patient may have had ~4 previous similar episodes in the past. She notes patient has made suicidal threats but no attempts. Family history of BPAD and also dementia in patient's mother. Daughter notes patient has an extensive history of substance use issues, including hallucinogens and alcohol. Re-examined patient ~15min after Ativan challenge. Complete resolution of above symptoms and signs. Patient is awake, alert and interactive. Speaking readily and fluently. She tells me that she has "not been feeling well lately. " Mood is somewhat depressed. Denies SI/HI. Possibly some paranoia and ideas of reference. Vague AVH, no reported CAH. Unsure of her psychiatric diagnosis. Review of Systems ROS Limitations: Altered Mental Status, Unresponsive Other Limited ROS. Past Family Social History Coded Allergies: penicillin G (Verified Adverse Reaction, Mild, HOT AND VOMITS, 07/21/17) Past Medical History See EMR Active Scripts Clonidine (Clonidine) 0.1 Mg Tab, 0.1 MG PO Q12HR Y for SBP>180, DBP>95, #5 TAB 0 Refills Prov:Justa Estrada MD 07/07/17 Reported Medications Trazodone (Trazodone) 100 Mg Tablet, 100 MG PO HS for Control Depression, #30 TAB 0 Refills 07/21/17 Escitalopram (Escitalopram) 10 Mg Tab, 10 MG PO DAILY, #30 TAB 0 Refills 07/21/17 Hydralazine HCl (Hydralazine HCl) 10 Mg Tablet, 10 MG PO TID 05/11/17 Discontinued Reported Medications Promethazine (Phenergan) 25 Mg Tablet, 25 MG PO Q6H Y for NAUSEA OR VOMITING, TAB 0 Refills 05/11/17 Tizanidine (Tizanidine) 4 Mg Cap, 4 MG PO TID for Muscle Spasm, CAP 0 Refills 05/11/17 Terazosin (Terazosin) 2 Mg Cap, 2 MG PO HS, #30 CAP 0 Refills 05/11/17 Olanzapine (Zyprexa) 5 Mg Tab, 5 MG PO BID, #60 TAB 0 Refills 05/11/17 Potassium Chloride ER (Potassium Chloride ER) 20 Meq Tab, 20 MEQ PO BID for Electrolyte Replacement, #60 TAB 0 Refills 05/11/17 Dicyclomine (Dicyclomine) 20 Mg Tab, 20 MG PO QID for Bowel Management, #120 TAB 0 Refills 05/11/17 Folic Acid (Folic Acid) 1 Mg Tablet, 1 MG PO DAILY 05/11/17 Furosemide (Furosemide) 40 Mg Tab, 40 MG PO DAILY, #30 TAB 0 Refills 05/11/17 Amlodipine (Amlodipine) 10 Mg Tab, 10 MG PO DAILY for Blood Pressure Management , #30 TAB 0 Refills 05/11/17 Alprazolam (Alprazolam) 1 Mg Tab, 1 MG PO Q8H Y for ANXIETY, TAB 0 Refills 05/11/17 Discontinued Scripts Ibuprofen (Ibuprofen) 800 Mg Tab, 800 MG PO Q8H Y for PAIN GREATER THAN 5, #15 TAB 0 Refills Prov:Justa Estrada MD 07/07/17 Hydralazine HCl (Hydralazine HCl) 10 Mg Tablet, 10 MG PO TID for 14 Days Prov:Justa Estrada MD 07/07/17 Dextromethorphan-Guaifenesin ER 12 HR (Mucinex DM Maximum Strength) 60-1,200 Mg Tab, 1 TAB PO BID Y for CHEST CONGESTION AND/OR COUGH, #14 TAB Prov:Sav Godoy MD 05/11/17 Albuterol 18 GM Inh (Ventolin Hfa 18 GM Inh) 90 Mcg/Act Aer, 2 PUFF INH Q4-6H Y for SHORTNESS OF BREATH, #1 INHALER Prov:Sav Godoy MD 05/11/17 Current Medications Medications (Trade) Dose Ordered Sig/Azra Route Start Time Stop Time Status Last Admin (NS Flush) 2 ml UNSCH PRN IV FLUSH 07/21/17 18:00 (NS Flush) 2 ml BID IV FLUSH 07/21/17 21:00 07/22/17 11:49 (Narcan Inj) 0.4 mg UNSCH PRN IV 07/21/17 18:00 (Elissa-Colace) 1 tab BID PO 07/21/17 21:00 (Milk Of Magnesia Liq) 30 ml Q12H PRN PO 07/21/17 18:00 (Senokot) 17.2 mg Q12H PRN PO 07/21/17 18:00 (Dulcolax Supp) 10 mg DAILY PRN RECTAL 07/21/17 18:00 (Lactulose Liq) 30 ml DAILY PRN PO 07/21/17 18:00 (Apresoline Inj) 10 mg Q6H IV PUSH 07/21/17 18:00 07/22/17 11:48 (Trandate Inj) 10 mg Q6H PRN IV PUSH 07/21/17 18:00 07/22/17 08:19 (Vasotec Inj) 1.25 mg Q6H PRN IV PUSH 07/21/17 18:00 07/22/17 04:14 (Zofran Inj) 4 mg Q6HR PRN IV PUSH 07/22/17 01:15 07/22/17 01:21 (Protonix Inj) 40 mg Q24H IV PUSH 07/22/17 11:00 07/22/17 11:49 Dextrose/Sodium Chloride 1,000 ml @ 100 mls/hr Q10H IV 07/22/17 13:00 07/22/17 12:25 Patient's Strengths (min. 2) In monitored setting. Supportive daughter. Physical Exam PE completed by primary team. Exam findings as above in HPI. Additionally, no LE "lead pipe" rigidity or hypertonia. No hand tremor, no dystonias, no dyskinesias. Reflexes are normal at the knee and the No other motor abnormalities. Labs and vitals reviewed: Vital Signs Vital Signs Date Time Temp Pulse Resp B/P (MAP) Pulse Ox O2 Delivery O2 Flow Rate FiO2 07/22/17 12:00 82 07/22/17 12:00 98.5 22 198/101 (133) 95 07/21/17 15:34 Room Air I/O 07/22/17 07/22/17 07/23/17 08:00 16:00 00:00 Intake Total 0 ml Output Total 4 ml Balance -4 ml Lab Results Item Value Date Time White Blood Count 11.0 TH/MM3 # 07/22/17 0600 Hemoglobin 13.9 GM/DL 07/22/17 0600 Platelet Count 205 TH/MM3 07/22/17 0600 Sodium Level 137 MEQ/L 07/22/17 0600 Potassium Level 3.5 MEQ/L 07/22/17 0600 Chloride Level 102 MEQ/L 07/22/17 0600 Carbon Dioxide Level 19.5 MEQ/L L 07/22/17 0600 Blood Urea Nitrogen 14 MG/DL 07/22/17 0600 Creatinine 0.98 MG/DL 07/22/17 0600 Aspartate Amino Transf (AST/SGOT) 20 U/L 07/21/17 1358 Alanine Aminotransferase (ALT/SGPT) 23 U/L 07/21/17 1358 Alkaline Phosphatase 109 U/L 07/21/17 1358 Thyroid Stimulating Hormone 3rd Gen 3.790 uIU/ML H 07/21/17 1358 Folate GREATER THAN 20.0 NG/ML H 07/22/17 0600 Free Thyroxine 1.80 NG/DL H 07/22/17 0600 Vitamin B12 Level 893 PG/ML 07/22/17 0600 Urine Opiates Screen NEG 07/21/17 1530 Urine Barbiturates Screen NEG 07/21/17 1530 Urine Benzodiazepines Screen NEG 07/21/17 1530 Urine Amphetamines Screen NEG 07/21/17 1530 Urine Cocaine Screen NEG 07/21/17 1530 Urine Cannabinoids Screen NEG 07/21/17 1530 Ethyl Alcohol Level LESS THAN 3 MG/DL 07/21/[address] neg. Mental Status Examination Exam based on re-eval after Ativan. Motor exam as above. Reg 3/3, recall 0/3 at 3 minutes. Able to spell WORLD forward but not backward. Able to name 2 items and repeat a phrase. Appearance In hospital gown. Fairly well groomed. 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 Patient presented initially to me with several classical catatonic features as detailed above. She responded rapidly and positively to Ativan challenge. I suspect catatonia, possibly due to underlying mental disorder, although we should continue to rule out general medical causes as ordered by neurology, including EEG for possible seizures as these might also improve temporarily with Ativan challenge. Also consider catatonia due to a substance given recent introduction of Zyprexa and Effexor per daughter. Although HTN may be unrelated, need to remain vigilant for malignant catatonia, as would be evidenced by worsening autonomic instability and fever in setting of catatonia and is a medical emergency. Also consider hypertensive encephalopathy with catatonia as an epiphenomenon. Exam is not really consistent with SS/NMS, nor would I expect such foudroyant improvement in these syndromes to Ativan challenge. For now, I recommend the following: --For catatonia, initiate Ativan 1mg q6h slow IV push. If this dose is insufficient and patient lapses back into catatonic state, consider increasing to 1.5mg or 2mg q6h, but I have kept the dose lower initially to avoid sedation from any dose stacking --Continue medical/neuro workup. I have added a CK given immobility while catatonic. Check serum iron as this can be reduced in malignant catatonia. --We will need to start a long-term prophylactic psychotropic agent, but underlying diagnosis is unclear. An atypical antipsychotic seems a likely option, though. Check EKG for QTc. I would hold prior to admission psychotropics for now. --Close obs in ICU, sitter if transferred to floor. Please be aware that patients can alternate between catatonic stupor and catatonic excitement and can pose risk for unpredictable aggression/violence in the excited state. --I have initiated [place] Act. Patient would likely be a very good candidate for Med Psych if there are beds available so long as she does not require telemetry. Case d/w RN. Thank you very much for this consultation. Please call or page with questions. Discharge Planning BA initiated. MedPsych? Aaron Remy MD Jul 22, 2017 15:42
[2017-07-22] MEDS ORDERED: LORazepam 2 MG/ML VIAL IV PUSH ONE (15:45)
[2017-07-22 17:49] LABS: CREATINE KINASE 184 U/L (26-192)
[2017-07-22] MEDS: LORazepam 2 MG/ML VIAL IV PUSH SCH (20:49)
[2017-07-23] VITALS: BP 162/85; PULSE 78; PULSE 88; RESP 20; TEMP 98.8; O2SAT 97
[2017-07-23] MEDS: hydrALAZINE HCL 20 MG/ML VIAL IV PUSH SCH ×2 (00:02→06:00)
[2017-07-23 04:00] VITALS: BP 139/72; PULSE 73; RESP 16; TEMP 98.9; O2SAT 96
[2017-07-23] MEDS: LORazepam 2 MG/ML VIAL IV PUSH SCH ×4 (04:05→23:02)
[2017-07-23 06:07] LABS: AUTOMATED NEUTROPHIL # 5.2 TH/MM3 (1.8-7.7); BASOPHIL % 0.7 % (0.0-2.0); EOSINOPHIL % 0.1 % (0.0-4.0); HEMATOCRIT 36.9 % (35.0-46.0); HEMO FLAGS DIFF FINAL; LYMPH % 20.2 % (9.0-44.0); LYMPHOCYTE # 1.4 TH/MM3 (1.0-4.8); MEAN CELL VOLUME 89.2 FL (80.0-100.0); MEAN CORPUSCULAR HEMOGLOBIN 30.6 PG (27.0-34.0); MEAN CORPUSCULAR HGB CONC 34.3 % (32.0-36.0); MONO % 6.9 % (0.0-8.0); NEUT % 72.1 % (16.0-70.0); PLATELET COUNT 184 TH/MM3 (150-450); RED BLOOD COUNT 4.13 MIL/MM3 (4.00-5.30); WHITE BLOOD COUNT 7.1 TH/MM3 (4.0-11.0)
[2017-07-23 06:18] LABS: CHLORIDE 102 MEQ/L (98-107); POTASSIUM 3.3 MEQ/L (3.5-5.1); SODIUM (NA) 135 MEQ/L (136-145)
[2017-07-23] MEDS: DEXT 5%-NACL 0.9% 1000 ML INJ 1,000 ML IV SCH ×2 (06:29→09:00)
[2017-07-23 06:30] LABS: ALKALINE PHOSPHATASE 87 U/L (45-117); ALT (GPT) 16 U/L (10-53); ANION GAP 9 MEQ/L (5-15); AST (GOT) 13 U/L (15-37); BICARBONATE 24.3 MEQ/L (21.0-32.0); BLOOD UREA NITROGEN 14 MG/DL (7-18); GLOMERULAR FILTRATION RATE 58 ML/MIN (>89); TOTAL BILIRUBIN ADULT 0.6 MG/DL (0.2-1.0)
[2017-07-23] MEDS: SODIUM CHLORIDE 0.9% FLUSH 10 ML FLUSH IV FLUSH SCH ×2 (09:18→20:05)
[2017-07-23] MEDS: DOCUSATE SODIUM 50 MG/SENNA 8.6 MG TAB PO SCH ×2 (09:19→20:05)
[2017-07-23] MEDS: ONDANSETRON HCL 4 MG/2 ML VIAL IV PUSH PRN ×2 (09:19→23:02)
--- NOTE | 2017-07-23 10:42 | HHI.PR ---
Subjective History of Present Illness Patient seen and examined c/o mild headache neurology/ Psych input noted work up pending ok to transfer to [facility] d/w JOSE Kim. Review of Systems Constitutional Constitutional: Fatigue, Weakness Neurologic Neurologic: Headache Vitals/Results Vital Signs Vital Signs Date Time Temp Pulse Resp B/P (MAP) Pulse Ox O2 Delivery O2 Flow Rate FiO2 07/23/17 04:00 98.9 73 16 139/72 (94) 96 07/23/17 04:00 73 07/23/17 00:00 98.8 78 20 162/85 (110) 97 07/23/17 00:00 78 07/22/17 20:00 98.4 85 20 157/84 (108) 97 07/22/17 20:00 80 07/22/17 17:58 82 07/22/17 17:22 99.9 07/22/17 12:00 82 07/22/17 12:00 98.5 89 22 198/101 (133) 95 CBC/BMP: 07/23/17 0550 07/23/17 0550 Lab Results Laboratory Tests Test 07/22/17 17:17 07/23/17 05:50 Iron Level 44 MCG/DL Total Creatine Kinase 184 U/L White Blood Count 7.1 TH/MM3 Red Blood Count 4.13 MIL/MM3 Hemoglobin 12.6 GM/DL Hematocrit 36.9 % Mean Corpuscular Volume 89.2 FL Mean Corpuscular Hemoglobin 30.6 PG Mean Corpuscular Hemoglobin Concent 34.3 % Red Cell Distribution Width 13.0 % Platelet Count 184 TH/MM3 Mean Platelet Volume 6.4 FL Neutrophils (%) (Auto) 72.1 % Lymphocytes (%) (Auto) 20.2 % Monocytes (%) (Auto) 6.9 % Eosinophils (%) (Auto) 0.1 % Basophils (%) (Auto) 0.7 % Neutrophils # (Auto) 5.2 TH/MM3 Lymphocytes # (Auto) 1.4 TH/MM3 Monocytes # (Auto) 0.5 TH/MM3 Eosinophils # (Auto) 0.0 TH/MM3 Basophils # (Auto) 0.0 TH/MM3 CBC Comment DIFF FINAL Differential Comment Blood Urea Nitrogen 14 MG/DL Creatinine 0.98 MG/DL Random Glucose 132 MG/DL Total Protein 6.8 GM/DL Albumin 3.5 GM/DL Calcium Level 9.0 MG/DL Alkaline Phosphatase 87 U/L Aspartate Amino Transf (AST/SGOT) 13 U/L Alanine Aminotransferase (ALT/SGPT) 16 U/L Total Bilirubin 0.6 MG/DL Sodium Level 135 MEQ/L Potassium Level 3.3 MEQ/L Chloride Level 102 MEQ/L Carbon Dioxide Level 24.3 MEQ/L Anion Gap 9 MEQ/L Estimat Glomerular Filtration Rate 58 ML/MIN Physical Exam General General Appearance: Well Developed, Well Nourished, No Acute Distress, Comfortable Eyes Eye Exam: Pupils Equal, Pupils Reactive, Sclera White, Extraocular Movement Intact Throat Throat Exam: Oral Mucosa [place] & Moist, Oral Pharynx Normal Neck Neck Exam: Neck Supple, Trachea Midline Pulmonary Resp Exam: Clear Bilaterally, Breath Sounds Equal, No Distress Cardiology CV Exam: Regular, Normal Sinus Rhythm Gastrointestinal/Abdomen GI Exam: Soft, Non-Tender, Bowel Sounds Present Musculoskeletal MS Exam: Joints Intact Integumentary Skin Exam: Clear, Warm, Dry, Intact Extremeties Extremities Exam: No Edema Neurologic Neuro Exam: Alert, Awake, Oriented, Speech Clear, Moving All Extremities, No Focal Deficits Psychiatric Psych Exam: Appropriate Responses VTE Prophylaxis VTE Prophylaxis Device: SCDs PUD Prophylasis PUD Prophylaxis: Protonix Assessment/Plan Assessment/Plan ASSESSMENT/PLAN 1. This is a 57-year female who came to the ER diagnosed with altered mental status/psychotic behavior/ Catatonia.. ..resolved The patient's CT brain does not show anything acute. checked metabolic workup and also the patient has high TSH 3.79. Urine toxic screen negative. Alcohol level less than 3. Urinalysis did not show any urinary tract infection. neurology input noted for further recommendation. getting an EEG... Psychiatry input noted. holding trazodone and the citalopram. 2. Hypertension, uncontrolled. continue home medicine. The patient on clonidine + enalapril IV p.r.n. hypertension. 3. Mild hyponatremia which has resolved. 4. DVT prophylaxis with SCD. 5. GI prophylaxis with Protonix 40 mg PO daily. Check CBC with diff CMP in AM ok to transfer to [facility]. We are going to manage the patient on a daily basis and make recommendation on a daily basis. Discussed Condition with: Patient Tony Junior MD Jul 23, 2017 10:42
[2017-07-23] MEDS: hydrALAZINE HCL 10 MG TAB PO SCH ×2 (11:51→17:11)
[2017-07-23] MEDS: IBUPROFEN 800 MG TAB PO PRN ×2 (11:51→20:05)
[2017-07-23] MEDS: PANTOPRAZOLE SODIUM 40 MG VIAL IV PUSH SCH (11:52)
[2017-07-23] MEDS ORDERED: POTASSIUM CHLORIDE 10 MEQ CONTROLLED RELEASE TAB PO ONE (12:00)
[2017-07-23 16:00] VITALS: BP 135/72; PULSE 89; RESP 17; TEMP 97.2; O2SAT 98
[2017-07-23 20:00] VITALS: BP 176/101; PULSE 91; RESP 20; TEMP 99.5; O2SAT 94
--- NOTE | 2017-07-23 20:13 | EKG ---
Date Performed: 07/22/2017 Time Performed: 17:13:04 PTAGE: 57 years EKG: Sinus rhythm NONSPECIFIC T-WAVE ABNORMALITY BORDERLINE ECG PREVIOUS TRACING : 06/26/2017 13.08 DOCTOR: Juliano Davidson Interpretating Date/Time 07/23/2017 20:08:54
[2017-07-23] MEDS: ENALAPRILAT 1.25 MG/ML VIAL IV PUSH PRN (20:52)
[2017-07-24] VITALS: BP 135/82; PULSE 73; RESP 18; TEMP 98.3; O2SAT 96
[2017-07-24 04:00] VITALS: BP 112/75; PULSE 70; RESP 18; TEMP 98.3; O2SAT 96
[2017-07-24] MEDS: LORazepam 2 MG/ML VIAL IV PUSH SCH ×4 (04:29→22:02)
[2017-07-24 05:39] LABS: AUTOMATED NEUTROPHIL # 2.5 TH/MM3 (1.8-7.7); BASOPHIL # 0.1 TH/MM3 (0-0.2); BASOPHIL % 1.3 % (0.0-2.0); EOSINOPHIL # 0.1 TH/MM3 (0-0.4); EOSINOPHIL % 1.1 % (0.0-4.0); HEMATOCRIT 36.7 % (35.0-46.0); HEMO FLAGS DIFF FINAL; LYMPH % 41.6 % (9.0-44.0); LYMPHOCYTE # 2.2 TH/MM3 (1.0-4.8); MEAN CELL VOLUME 91.3 FL (80.0-100.0); MEAN CORPUSCULAR HEMOGLOBIN 29.8 PG (27.0-34.0); MEAN CORPUSCULAR HGB CONC 32.7 % (32.0-36.0); MONO % 7.1 % (0.0-8.0); NEUT % 48.9 % (16.0-70.0); PLATELET COUNT 169 TH/MM3 (150-450); RED BLOOD COUNT 4.02 MIL/MM3 (4.00-5.30); WHITE BLOOD COUNT 5.3 TH/MM3 (4.0-11.0)
[2017-07-24 05:45] LABS: CHLORIDE 107 MEQ/L (98-107); SODIUM (NA) 139 MEQ/L (136-145)
[2017-07-24 05:51] LABS: ANION GAP 7 MEQ/L (5-15); BICARBONATE 24.8 MEQ/L (21.0-32.0); BLOOD UREA NITROGEN 17 MG/DL (7-18)
[2017-07-24 05:54] LABS: ALT (GPT) 16 U/L (10-53); AST (GOT) 12 U/L (15-37); GLOMERULAR FILTRATION RATE 51 ML/MIN (>89)
[2017-07-24 05:55] LABS: TOTAL BILIRUBIN ADULT 0.5 MG/DL (0.2-1.0)
[2017-07-24 05:56] LABS: ALKALINE PHOSPHATASE 75 U/L (45-117)
[2017-07-24 08:00] VITALS: BP 145/84; PULSE 71; RESP 18; TEMP 98; O2SAT 97
[2017-07-24] MEDS: hydrALAZINE HCL 10 MG TAB PO SCH ×3 (08:31→16:53)
[2017-07-24] MEDS: DOCUSATE SODIUM 50 MG/SENNA 8.6 MG TAB PO SCH ×2 (08:31→22:02)
[2017-07-24] MEDS: SODIUM CHLORIDE 0.9% FLUSH 10 ML FLUSH IV FLUSH SCH ×2 (08:31→22:03)
[2017-07-24] MEDS: ONDANSETRON HCL 4 MG/2 ML VIAL IV PUSH PRN ×3 (08:35→23:51)
--- NOTE | 2017-07-24 09:53 | HHI.PR ---
Subjective History of Present Illness Patient seen and examined c/o mild headache neurology / Psych input noted work up noted d/w JOSE Monge. Review of Systems Constitutional Constitutional: Fatigue, Weakness Neurologic Neurologic: Headache Vitals/Results Vital Signs Vital Signs Date Time Temp Pulse Resp B/P (MAP) Pulse Ox O2 Delivery O2 Flow Rate FiO2 07/24/17 08:00 98.0 71 18 145/84 (104) 97 07/24/17 04:00 98.3 70 18 112/75 (87) 96 07/24/17 00:00 98.3 73 18 135/82 (99) 96 07/23/17 20:00 99.5 91 20 176/101 (126) 94 07/23/17 16:00 97.2 89 17 135/72 (93) 98 07/23/17 13:33 18 CBC/BMP: 07/24/17 0500 07/24/17 0500 Lab Results Laboratory Tests Test 07/24/17 05:00 White Blood Count 5.3 TH/MM3 Red Blood Count 4.02 MIL/MM3 Hemoglobin 12.0 GM/DL Hematocrit 36.7 % Mean Corpuscular Volume 91.3 FL Mean Corpuscular Hemoglobin 29.8 PG Mean Corpuscular Hemoglobin Concent 32.7 % Red Cell Distribution Width 13.0 % Platelet Count 169 TH/MM3 Mean Platelet Volume 6.9 FL Neutrophils (%) (Auto) 48.9 % Lymphocytes (%) (Auto) 41.6 % Monocytes (%) (Auto) 7.1 % Eosinophils (%) (Auto) 1.1 % Basophils (%) (Auto) 1.3 % Neutrophils # (Auto) 2.5 TH/MM3 Lymphocytes # (Auto) 2.2 TH/MM3 Monocytes # (Auto) 0.4 TH/MM3 Eosinophils # (Auto) 0.1 TH/MM3 Basophils # (Auto) 0.1 TH/MM3 CBC Comment DIFF FINAL Differential Comment Blood Urea Nitrogen 17 MG/DL Creatinine 1.10 MG/DL Random Glucose 90 MG/DL Total Protein 6.1 GM/DL Albumin 3.2 GM/DL Calcium Level 8.7 MG/DL Alkaline Phosphatase 75 U/L Aspartate Amino Transf (AST/SGOT) 12 U/L Alanine Aminotransferase (ALT/SGPT) 16 U/L Total Bilirubin 0.5 MG/DL Sodium Level 139 MEQ/L Potassium Level 4.0 MEQ/L Chloride Level 107 MEQ/L Carbon Dioxide Level 24.8 MEQ/L Anion Gap 7 MEQ/L Estimat Glomerular Filtration Rate 51 ML/MIN Physical Exam General General Appearance: Well Developed, Well Nourished, No Acute Distress, Comfortable Eyes Eye Exam: Pupils Equal, Pupils Reactive, Sclera White, Extraocular Movement Intact Throat Throat Exam: Oral Mucosa [place] & Moist, Oral Pharynx Normal Neck Neck Exam: Neck Supple, Trachea Midline Pulmonary Resp Exam: Clear Bilaterally, Breath Sounds Equal, No Distress Cardiology CV Exam: Regular, Normal Sinus Rhythm Gastrointestinal/Abdomen GI Exam: Soft, Non-Tender, Bowel Sounds Present Musculoskeletal MS Exam: Joints Intact Integumentary Skin Exam: Clear, Warm, Dry, Intact Extremeties Extremities Exam: No Edema Neurologic Neuro Exam: Alert, Awake, Oriented, Speech Clear, Moving All Extremities, No Focal Deficits Psychiatric Psych Exam: Appropriate Responses VTE Prophylaxis VTE Prophylaxis Device: SCDs PUD Prophylasis PUD Prophylaxis: Protonix Assessment/Plan Assessment/Plan ASSESSMENT/PLAN 1. This is a 57-year female who came to the ER diagnosed with altered mental status/psychotic behavior/ Catatonia.. ..resolved The patient's CT brain does not show anything acute. checked metabolic workup and also the patient has high TSH 3.79. Urine toxic screen negative. Alcohol level less than 3. Urinalysis did not show any urinary tract infection. neurology input noted for further recommendation. getting an EEG... Psychiatry input noted. holding trazodone and the citalopram. 2. Hypertension, uncontrolled. continue home medicine. The patient on clonidine + enalapril IV p.r.n. hypertension. 3. Mild hyponatremia which has resolved. 4. DVT prophylaxis with SCD. 5. GI prophylaxis with Protonix 40 mg PO daily. Check CBC with diff CMP in AM We are going to manage the patient on a daily basis and make recommendation on a daily basis. Discussed Condition with: Patient Tony Junior MD Jul 24, 2017 09:53
[2017-07-24 12:00] VITALS: BP 148/73; PULSE 81; RESP 18; TEMP 98.5; O2SAT 98
[2017-07-24] MEDS: PANTOPRAZOLE SOD 40 MG DELAYED RELEASE TAB PO SCH (12:37)
[2017-07-24 16:00] VITALS: BP 156/83; PULSE 81; RESP 18; TEMP 97.6; O2SAT 96
--- NOTE | 2017-07-24 16:05 | MG ---
cc: PRAKASH PAYNE MD Lab No: [id number] Date: 07/24/2017 Age: 57 Sex: F Race: DATE OF : 1960 HISTORY: 57-year-old with history of behaving oddly and acting child like, staring off into space and myotonic with a history of schizophrenia, fibromyalgia, low back pain, depression. PROCEDURE: Background electroencephalogram demonstrates 5-7 Hz activity 20-60 microvolts low amplitude beta in the frontal channels good anterior-posterior gradient Electroencephalogram variability reactivity. Some <<0:56>> looking waveforms, hyperventilation performed without any abnormal response. Mild driving with photic stimulation. Single lead electrocardiogram showing sinus rhythm. INTERPRETATION Very minimal encephalopathy. Clinical correlation. Prakash Payne MD MG/ /3:46 PM /3:58 PM
[2017-07-24 20:00] VITALS: BP 147/87; PULSE 88; RESP 20; TEMP 97.7; O2SAT 96
[2017-07-25] VITALS: BP 153/99; PULSE 79; RESP 20; TEMP 98.1; O2SAT 97
[2017-07-25 04:00] VITALS: BP 172/101; PULSE 74; RESP 20; TEMP 98.2; O2SAT 96
[2017-07-25] MEDS: LORazepam 2 MG/ML VIAL IV PUSH SCH ×4 (05:09→20:53)
[2017-07-25] MEDS: ENALAPRILAT 1.25 MG/ML VIAL IV PUSH PRN ×2 (05:09→20:53)
[2017-07-25 06:15] LABS: AUTOMATED NEUTROPHIL # 2.7 TH/MM3 (1.8-7.7); BASOPHIL % 0.8 % (0.0-2.0); EOSINOPHIL # 0.1 TH/MM3 (0-0.4); EOSINOPHIL % 1.7 % (0.0-4.0); HEMATOCRIT 36.6 % (35.0-46.0); HEMO FLAGS DIFF FINAL; LYMPH % 40.9 % (9.0-44.0); LYMPHOCYTE # 2.1 TH/MM3 (1.0-4.8); MEAN CORPUSCULAR HEMOGLOBIN 31.3 PG (27.0-34.0); MONO % 5.9 % (0.0-8.0); NEUT % 50.7 % (16.0-70.0); PLATELET COUNT 167 TH/MM3 (150-450); RED BLOOD COUNT 3.98 MIL/MM3 (4.00-5.30); RED CELL DISTRIBUTION WIDTH 12.8 % (11.6-17.2); WHITE BLOOD COUNT 5.2 TH/MM3 (4.0-11.0)
[2017-07-25 06:22] LABS: CHLORIDE 105 MEQ/L (98-107); POTASSIUM 3.7 MEQ/L (3.5-5.1); SODIUM (NA) 139 MEQ/L (136-145)
[2017-07-25 06:28] LABS: ANION GAP 9 MEQ/L (5-15); BICARBONATE 24.7 MEQ/L (21.0-32.0)
[2017-07-25 06:29] LABS: BLOOD UREA NITROGEN 17 MG/DL (7-18)
[2017-07-25 06:32] LABS: ALT (GPT) 16 U/L (10-53); AST (GOT) 13 U/L (15-37); GLOMERULAR FILTRATION RATE 57 ML/MIN (>89)
[2017-07-25 06:33] LABS: TOTAL BILIRUBIN ADULT 0.4 MG/DL (0.2-1.0)
[2017-07-25 06:34] LABS: ALKALINE PHOSPHATASE 75 U/L (45-117)
[2017-07-25 08:00] VITALS: BP 151/91; PULSE 76; RESP 18; TEMP 97.9; O2SAT 97
[2017-07-25] MEDS: hydrALAZINE HCL 10 MG TAB PO SCH ×3 (08:18→17:27)
[2017-07-25] MEDS: DOCUSATE SODIUM 50 MG/SENNA 8.6 MG TAB PO SCH ×2 (08:19→20:54)
[2017-07-25] MEDS: SODIUM CHLORIDE 0.9% FLUSH 10 ML FLUSH IV FLUSH SCH ×2 (08:23→20:54)
[2017-07-25] MEDS: ONDANSETRON HCL 4 MG/2 ML VIAL IV PUSH PRN ×2 (10:51→17:31)
[2017-07-25] MEDS: PANTOPRAZOLE SOD 40 MG DELAYED RELEASE TAB PO SCH (10:51)
[2017-07-25 12:00] VITALS: BP 160/95; PULSE 84; RESP 18; TEMP 98.1; O2SAT 97
[2017-07-25 12:46] LABS: ANA SCREEN POS (NEG)
[2017-07-25 16:00] VITALS: BP 174/100; PULSE 81; RESP 18; TEMP 97.9; O2SAT 95
[2017-07-26] VITALS: BP 167/96; PULSE 85; RESP 20; TEMP 98
[2017-07-26] MEDS: ONDANSETRON HCL 4 MG/2 ML VIAL IV PUSH PRN ×3 (01:04→22:53)
[2017-07-26] MEDS: LORazepam 2 MG/ML VIAL IV PUSH SCH ×4 (03:33→21:07)
[2017-07-26 06:17] VITALS: BP 138/86
[2017-07-26 08:50] VITALS: BP 158/104; PULSE 75; RESP 18; TEMP 97.8; O2SAT 96
[2017-07-26] MEDS: SODIUM CHLORIDE 0.9% FLUSH 10 ML FLUSH IV FLUSH SCH ×2 (09:34→21:07)
[2017-07-26] MEDS: hydrALAZINE HCL 10 MG TAB PO SCH ×3 (09:34→17:50)
[2017-07-26] MEDS: DOCUSATE SODIUM 50 MG/SENNA 8.6 MG TAB PO SCH ×2 (09:35→21:06)
[2017-07-26] MEDS: PANTOPRAZOLE SOD 40 MG DELAYED RELEASE TAB PO SCH (10:23)
[2017-07-26 12:39] VITALS: BP 159/95; PULSE 88; RESP 15; TEMP 98.2; O2SAT 96
[2017-07-26 16:23] VITALS: BP 146/90; PULSE 67; RESP 18; TEMP 98.7; O2SAT 97
--- NOTE | 2017-07-26 19:20 | HHI.PR ---
Subjective History of Present Illness Patient seen on 07/25/17 Patient stable EEG Noted shows minimal encephalopathy no acute issue SCAR Pending RPR non reactive. Review of Systems Constitutional Constitutional: Fatigue, Weakness Neurologic Neurologic: Headache Vitals/Results Intake & Output 07/26/17 07/26/17 07/27/17 15:00 23:00 07:00 Intake Total 1500 ml Balance 1500 ml Intake Oral 1500 ml # Voids 3 # Bowel Movements 1 Vital Signs Vital Signs Date Time Temp Pulse Resp B/P (MAP) Pulse Ox O2 Delivery O2 Flow Rate FiO2 07/26/17 16:23 98.7 67 18 146/90 (108) 97 07/26/17 12:39 98.2 88 15 159/95 (116) 96 07/26/17 08:50 97.8 75 18 158/104 (122) 96 07/26/17 06:17 138/86 (103) 07/26/17 00:00 98.0 85 20 167/96 (119) CBC/BMP: 07/25/17 0510 07/25/17 0510 Physical Exam General General Appearance: Well Developed, Well Nourished, No Acute Distress, Comfortable Eyes Eye Exam: Pupils Equal, Pupils Reactive, Sclera White, Extraocular Movement Intact Throat Throat Exam: Oral Mucosa [place] & Moist, Oral Pharynx Normal Neck Neck Exam: Neck Supple, Trachea Midline Pulmonary Resp Exam: Clear Bilaterally, Breath Sounds Equal, No Distress Cardiology CV Exam: Regular, Normal Sinus Rhythm Gastrointestinal/Abdomen GI Exam: Soft, Non-Tender, Bowel Sounds Present Musculoskeletal MS Exam: Joints Intact Integumentary Skin Exam: Clear, Warm, Dry, Intact Extremeties Extremities Exam: No Edema Neurologic Neuro Exam: Alert, Awake, Oriented, Speech Clear, Moving All Extremities, No Focal Deficits Psychiatric Psych Exam: Appropriate Responses VTE Prophylaxis VTE Prophylaxis Device: SCDs PUD Prophylasis PUD Prophylaxis: Protonix Assessment/Plan Assessment/Plan ASSESSMENT/PLAN 1. This is a 57-year female who came to the ER diagnosed with altered mental status/psychotic behavior/ Catatonia.. ..resolved The patient's CT brain does not show anything acute. checked metabolic workup and also the patient has high TSH 3.79. Urine toxic screen negative. Alcohol level less than 3. Urinalysis did not show any urinary tract infection. neurology input noted for further recommendation. S/P an EEG. shows minimal encephalopathy.... Psychiatry input noted. holding trazodone and the citalopram. 2. Hypertension, uncontrolled. continue home medicine. The patient on clonidine + enalapril IV p.r.n. hypertension. 3. Mild hyponatremia which has resolved. 4. DVT prophylaxis with SCD. 5. GI prophylaxis with Protonix 40 mg PO daily. Check CBC with diff CMP in AM We are going to manage the patient on a daily basis and make recommendation on a daily basis. Discussed Condition with: Patient Tony Junior MD Jul 26, 2017 19:20
--- NOTE | 2017-07-26 19:20 | HHI.PR ---
Subjective History of Present Illness Patient seen and examined on 07/26/17 EEG Shows minimal encephalopathy d/w RN Carolina need to transfer to psych floor. Review of Systems Constitutional Constitutional: Fatigue, Weakness Neurologic Neurologic: Headache Vitals/Results Intake & Output 07/26/17 07/26/17 07/27/17 15:00 23:00 07:00 Intake Total 1500 ml Balance 1500 ml Intake Oral 1500 ml # Voids 3 # Bowel Movements 1 Vital Signs Vital Signs Date Time Temp Pulse Resp B/P (MAP) Pulse Ox O2 Delivery O2 Flow Rate FiO2 07/26/17 16:23 98.7 67 18 146/90 (108) 97 07/26/17 12:39 98.2 88 15 159/95 (116) 96 07/26/17 08:50 97.8 75 18 158/104 (122) 96 07/26/17 06:17 138/86 (103) 07/26/17 00:00 98.0 85 20 167/96 (119) CBC/BMP: 07/25/17 0510 07/25/17 0510 Physical Exam General General Appearance: Well Developed, Well Nourished, No Acute Distress, Comfortable Eyes Eye Exam: Pupils Equal, Pupils Reactive, Sclera White, Extraocular Movement Intact Throat Throat Exam: Oral Mucosa [place] & Moist, Oral Pharynx Normal Neck Neck Exam: Neck Supple, Trachea Midline Pulmonary Resp Exam: Clear Bilaterally, Breath Sounds Equal, No Distress Cardiology CV Exam: Regular, Normal Sinus Rhythm Gastrointestinal/Abdomen GI Exam: Soft, Non-Tender, Bowel Sounds Present Musculoskeletal MS Exam: Joints Intact Integumentary Skin Exam: Clear, Warm, Dry, Intact Extremeties Extremities Exam: No Edema Neurologic Neuro Exam: Alert, Awake, Oriented, Speech Clear, Moving All Extremities, No Focal Deficits Psychiatric Psych Exam: Appropriate Responses VTE Prophylaxis VTE Prophylaxis Device: SCDs PUD Prophylasis PUD Prophylaxis: Protonix Assessment/Plan Assessment/Plan ASSESSMENT/PLAN 1. This is a 57-year female who came to the ER diagnosed with altered mental status/psychotic behavior/ Catatonia.. ..resolved The patient's CT brain does not show anything acute. checked metabolic workup and also the patient has high TSH 3.79. Urine toxic screen negative. Alcohol level was less than 3. Urinalysis did not show any urinary tract infection. neurology input noted for further recommendation. S/P an EEG. shows minimal encephalopathy.... Psychiatry input noted. holding trazodone and the citalopram. 2. Hypertension, uncontrolled. continue home medicine. The patient on clonidine + enalapril IV p.r.n. hypertension. 3. Mild hyponatremia which has resolved. 4. DVT prophylaxis with SCD. 5. GI prophylaxis with Protonix 40 mg PO daily. Check CBC with diff CMP in AM We are going to manage the patient on a daily basis and make recommendation on a daily basis. Discussed Condition with: Patient Tony Junior MD Jul 26, 2017 19:20
[2017-07-26 20:00] VITALS: BP 155/104; PULSE 89; RESP 20; TEMP 97.7; O2SAT 98
[2017-07-26] MEDS: cloNIDine HCL 0.1 MG TAB PO PRN (21:10)
[2017-07-27] VITALS (7 sets, daily range): BP systolic 153–187; BP diastolic 96–114; PULSE 83–91; RESP 16–20; TEMP 98.2–98.8; O2SAT 95–97
[2017-07-27] MEDS: LORazepam 2 MG/ML VIAL IV PUSH SCH ×4 (03:43→21:41)
[2017-07-27 05:51] LABS: AUTOMATED NEUTROPHIL # 2.5 TH/MM3 (1.8-7.7); BASOPHIL % 0.4 % (0.0-2.0); EOSINOPHIL # 0.1 TH/MM3 (0-0.4); HEMATOCRIT 36.5 % (35.0-46.0); HEMO FLAGS DIFF FINAL; LYMPH % 32.8 % (9.0-44.0); LYMPHOCYTE # 1.4 TH/MM3 (1.0-4.8); MEAN CELL VOLUME 90.4 FL (80.0-100.0); MEAN CORPUSCULAR HEMOGLOBIN 29.6 PG (27.0-34.0); MEAN CORPUSCULAR HGB CONC 32.7 % (32.0-36.0); NEUT % 57.8 % (16.0-70.0); PLATELET COUNT 153 TH/MM3 (150-450); RED BLOOD COUNT 4.04 MIL/MM3 (4.00-5.30); RED CELL DISTRIBUTION WIDTH 12.5 % (11.6-17.2); WHITE BLOOD COUNT 4.3 TH/MM3 (4.0-11.0)
[2017-07-27 06:03] LABS: CHLORIDE 104 MEQ/L (98-107); POTASSIUM 3.9 MEQ/L (3.5-5.1); SODIUM (NA) 140 MEQ/L (136-145)
[2017-07-27 06:16] LABS: ANION GAP 8 MEQ/L (5-15); BICARBONATE 27.6 MEQ/L (21.0-32.0); BLOOD UREA NITROGEN 17 MG/DL (7-18)
[2017-07-27 06:19] LABS: ALT (GPT) 15 U/L (10-53); AST (GOT) 11 U/L (15-37); GLOMERULAR FILTRATION RATE 46 ML/MIN (>89)
[2017-07-27 06:20] LABS: TOTAL BILIRUBIN ADULT 0.3 MG/DL (0.2-1.0)
[2017-07-27 06:22] LABS: ALKALINE PHOSPHATASE 71 U/L (45-117)
[2017-07-27] MEDS: SODIUM CHLORIDE 0.9% FLUSH 10 ML FLUSH IV FLUSH SCH ×2 (08:38→21:41)
[2017-07-27] MEDS: DOCUSATE SODIUM 50 MG/SENNA 8.6 MG TAB PO SCH ×2 (08:38→21:40)
[2017-07-27] MEDS: hydrALAZINE HCL 10 MG TAB PO SCH ×3 (08:38→18:18)
--- NOTE | 2017-07-27 10:14 | HHI.PR ---
Subjective History of Present Illness Patient seen and examined on 07/27/17 EEG Shows minimal encephalopathy d/w RN Carolina ok to transfer to psych floor today. Review of Systems Constitutional Constitutional: Fatigue, Weakness Neurologic Neurologic: Headache Vitals/Results Vital Signs Vital Signs Date Time Temp Pulse Resp B/P (MAP) Pulse Ox O2 Delivery O2 Flow Rate FiO2 07/27/17 08:31 98.8 90 19 157/106 (123) 95 07/27/17 04:00 98.2 85 20 160/96 (117) 97 07/27/17 00:00 98.7 83 20 165/101 (122) 95 07/26/17 20:00 97.7 89 20 155/104 (121) 98 07/26/17 16:23 98.7 67 18 146/90 (108) 97 07/26/17 12:39 98.2 88 15 159/95 (116) 96 CBC/BMP: 07/27/17 0455 07/27/17 0459 Lab Results Laboratory Tests Test 07/27/17 04:55 07/27/17 04:59 White Blood Count 4.3 TH/MM3 Red Blood Count 4.04 MIL/MM3 Hemoglobin 12.0 GM/DL Hematocrit 36.5 % Mean Corpuscular Volume 90.4 FL Mean Corpuscular Hemoglobin 29.6 PG Mean Corpuscular Hemoglobin Concent 32.7 % Red Cell Distribution Width 12.5 % Platelet Count 153 TH/MM3 Mean Platelet Volume 6.9 FL Neutrophils (%) (Auto) 57.8 % Lymphocytes (%) (Auto) 32.8 % Monocytes (%) (Auto) 7.0 % Eosinophils (%) (Auto) 2.0 % Basophils (%) (Auto) 0.4 % Neutrophils # (Auto) 2.5 TH/MM3 Lymphocytes # (Auto) 1.4 TH/MM3 Monocytes # (Auto) 0.3 TH/MM3 Eosinophils # (Auto) 0.1 TH/MM3 Basophils # (Auto) 0.0 TH/MM3 CBC Comment DIFF FINAL Differential Comment Blood Urea Nitrogen 17 MG/DL Creatinine 1.20 MG/DL Random Glucose 110 MG/DL Total Protein 6.2 GM/DL Albumin 3.1 GM/DL Calcium Level 8.4 MG/DL Alkaline Phosphatase 71 U/L Aspartate Amino Transf (AST/SGOT) 11 U/L Alanine Aminotransferase (ALT/SGPT) 15 U/L Total Bilirubin 0.3 MG/DL Sodium Level 140 MEQ/L Potassium Level 3.9 MEQ/L Chloride Level 104 MEQ/L Carbon Dioxide Level 27.6 MEQ/L Anion Gap 8 MEQ/L Estimat Glomerular Filtration Rate 46 ML/MIN Physical Exam General General Appearance: Well Developed, Well Nourished, No Acute Distress, Comfortable Eyes Eye Exam: Pupils Equal, Pupils Reactive, Sclera White, Extraocular Movement Intact Throat Throat Exam: Oral Mucosa [place] & Moist, Oral Pharynx Normal Neck Neck Exam: Neck Supple, Trachea Midline Pulmonary Resp Exam: Clear Bilaterally, Breath Sounds Equal, No Distress Cardiology CV Exam: Regular, Normal Sinus Rhythm Gastrointestinal/Abdomen GI Exam: Soft, Non-Tender, Bowel Sounds Present Musculoskeletal MS Exam: Joints Intact Integumentary Skin Exam: Clear, Warm, Dry, Intact Extremeties Extremities Exam: No Edema Neurologic Neuro Exam: Alert, Awake, Oriented, Speech Clear, Moving All Extremities, No Focal Deficits Psychiatric Psych Exam: Appropriate Responses VTE Prophylaxis VTE Prophylaxis Device: SCDs PUD Prophylasis PUD Prophylaxis: Protonix Assessment/Plan Assessment/Plan ASSESSMENT/PLAN 1. This is a 57-year female who came to the ER diagnosed with altered mental status/psychotic behavior/ Catatonia.. ..resolved The patient's CT brain does not show anything acute. checked metabolic workup and also the patient has high TSH 3.79. Urine toxic screen negative. Alcohol level was less than 3. Urinalysis did not show any urinary tract infection. neurology input noted for further recommendation. S/P an EEG. shows minimal encephalopathy.... Psychiatry input noted. holding trazodone and the citalopram. 2. Hypertension, uncontrolled. continue home medicine. The patient on clonidine + enalapril IV p.r.n. hypertension. 3. Mild hyponatremia which has resolved. 4. DVT prophylaxis with SCD. 5. GI prophylaxis with Protonix 40 mg PO daily. Check CBC with diff CMP in AM ok to transfer to Psych floor. Discussed Condition with: Patient Tony Junior MD Jul 27, 2017 10:14
[2017-07-27] MEDS: PANTOPRAZOLE SOD 40 MG DELAYED RELEASE TAB PO SCH (10:34)
[2017-07-27 10:42] LABS: ANA TITER QUANT 1:40 (NEG)
[2017-07-27] MEDS: ENALAPRILAT 1.25 MG/ML VIAL IV PUSH PRN (12:52)
--- NOTE | 2017-07-27 22:16 | MD ---
cc: [facility] ADMISSION DATE: 07/21/2017 DISCHARGE DATE: 07/27/17 [facility] Visit Search.Discharge Date Okay to transfer to the patient's psych facility at [facility]. Condition at the time of transfer ____ Activity as tolerated. Diet cardiac diet. ALLERGIES PENICILLIN DISCHARGE MEDICATIONS 1. Hydralazine 10 mg p.o. t.i.d. 2. Ibuprofen 800 mg p.o. q.8 h p.r.n. pain 3. Clonidine 0.1 mg p.o. q. 12-hour. 4. Lorazepam 1 mg p.o. q. 6-hour IV. ADMISSION DIAGNOSIS Altered mental status/catatonic phase which is resolved after given Ativan IV. The patient had a CT scan done, showed nothing acute. EEG done shows mild encephalopathy. Metabolic workup done shows a high TSH 3.79. Urine tox screen was negative. Alcohol level was less than three. Urinalysis did not show urinary tract infection. Neurology and psychiatry have seen the patient. Psychiatry recommended inpatient psych admission. Neurology did an EEG shows minimal encephalopathy. CT brain done, showed nothing acute. The patient also has hypertension, uncontrolled which was managed during hospital stay. The patient had mild hyponatremia which was resolved. The patient remained stable during the hospital stay. No acute event happened. The patient transferred satisfactory to the psychiatric unit at [facility]. Further details in the medical record. The patient had CBC normal. BMP shows mild renal insufficiency with a creatinine of 1.20, mild hyponatremia with 135 sodium which was resolved. She had mild hypokalemia which was replaced 3.3. RPR nonreactive. SCAR screen was positive but SCAR Interpretation and pattern was pending. Further details in the medical record. Tony Junior MD EA/ /10:41 AM /10:05 PM
[2017-07-28 00:15] VITALS: BP 159/102; PULSE 72; RESP 14; TEMP 98.9; O2SAT 97
[2017-07-28] MEDS: LORazepam 2 MG/ML VIAL IV PUSH SCH (04:48)
[2017-07-28 04:58] VITALS: BP 160/96
[2017-07-28] MEDS: cloNIDine HCL 0.1 MG TAB PO PRN (05:01)
[2017-07-28 07:08] LABS: BASOPHIL % 0.7 % (0.0-2.0); EOSINOPHIL # 0.1 TH/MM3 (0-0.4); HEMATOCRIT 35.2 % (35.0-46.0); HEMO FLAGS DIFF FINAL; LYMPH % 37.9 % (9.0-44.0); LYMPHOCYTE # 1.5 TH/MM3 (1.0-4.8); MEAN CELL VOLUME 92.3 FL (80.0-100.0); MEAN CORPUSCULAR HEMOGLOBIN 30.7 PG (27.0-34.0); MEAN CORPUSCULAR HGB CONC 33.3 % (32.0-36.0); MONO % 8.9 % (0.0-8.0); NEUT % 50.5 % (16.0-70.0); PLATELET COUNT 158 TH/MM3 (150-450); RED BLOOD COUNT 3.82 MIL/MM3 (4.00-5.30); RED CELL DISTRIBUTION WIDTH 12.6 % (11.6-17.2)
[2017-07-28 07:15] LABS: CHLORIDE 104 MEQ/L (98-107); POTASSIUM 3.8 MEQ/L (3.5-5.1); SODIUM (NA) 139 MEQ/L (136-145)
[2017-07-28 07:22] LABS: ANION GAP 7 MEQ/L (5-15); BICARBONATE 27.9 MEQ/L (21.0-32.0); BLOOD UREA NITROGEN 18 MG/DL (7-18)
[2017-07-28 07:25] LABS: ALT (GPT) 16 U/L (10-53); AST (GOT) 11 U/L (15-37); GLOMERULAR FILTRATION RATE 61 ML/MIN (>89)
[2017-07-28 07:27] LABS: ALKALINE PHOSPHATASE 67 U/L (45-117); TOTAL BILIRUBIN ADULT 0.3 MG/DL (0.2-1.0)
[2017-07-28 08:00] VITALS: BP 138/98; PULSE 66; RESP 17; TEMP 98.2; O2SAT 98
[2017-07-28] MEDS: hydrALAZINE HCL 10 MG TAB PO SCH ×3 (08:16→17:27)
[2017-07-28] MEDS: DOCUSATE SODIUM 50 MG/SENNA 8.6 MG TAB PO SCH ×2 (08:16→20:58)
[2017-07-28] MEDS: SODIUM CHLORIDE 0.9% FLUSH 10 ML FLUSH IV FLUSH SCH ×2 (08:19→20:57)
--- NOTE | 2017-07-28 10:23 | HHI.PR ---
Subjective History of Present Illness Patient seen and examined EEG Shows minimal encephalopathy d/w JOSE venegas to transfer to psych floor today. waiting for bed at Psych unit. Review of Systems Constitutional Constitutional: Fatigue, Weakness Neurologic Neurologic: Headache Vitals/Results Vital Signs Vital Signs Date Time Temp Pulse Resp B/P (MAP) Pulse Ox O2 Delivery O2 Flow Rate FiO2 07/28/17 08:00 98.2 66 17 138/98 (111) 98 07/28/17 04:58 160/96 (117) 07/28/17 00:15 98.9 72 14 159/102 (121) 97 07/27/17 20:07 98.2 83 16 156/114 (128) 96 07/27/17 16:10 98.3 83 19 153/99 (117) 95 07/27/17 12:52 161/108 (125) 07/27/17 12:15 98.2 91 19 187/110 (135) 95 CBC/BMP: 07/28/17 0616 07/28/17 0616 Lab Results Laboratory Tests Test 07/28/17 06:16 White Blood Count 4.0 TH/MM3 Red Blood Count 3.82 MIL/MM3 Hemoglobin 11.7 GM/DL Hematocrit 35.2 % Mean Corpuscular Volume 92.3 FL Mean Corpuscular Hemoglobin 30.7 PG Mean Corpuscular Hemoglobin Concent 33.3 % Red Cell Distribution Width 12.6 % Platelet Count 158 TH/MM3 Mean Platelet Volume 7.0 FL Neutrophils (%) (Auto) 50.5 % Lymphocytes (%) (Auto) 37.9 % Monocytes (%) (Auto) 8.9 % Eosinophils (%) (Auto) 2.0 % Basophils (%) (Auto) 0.7 % Neutrophils # (Auto) 2.0 TH/MM3 Lymphocytes # (Auto) 1.5 TH/MM3 Monocytes # (Auto) 0.4 TH/MM3 Eosinophils # (Auto) 0.1 TH/MM3 Basophils # (Auto) 0.0 TH/MM3 CBC Comment DIFF FINAL Differential Comment Blood Urea Nitrogen 18 MG/DL Creatinine 0.94 MG/DL Random Glucose 97 MG/DL Total Protein 6.0 GM/DL Albumin 3.1 GM/DL Calcium Level 8.5 MG/DL Alkaline Phosphatase 67 U/L Aspartate Amino Transf (AST/SGOT) 11 U/L Alanine Aminotransferase (ALT/SGPT) 16 U/L Total Bilirubin 0.3 MG/DL Sodium Level 139 MEQ/L Potassium Level 3.8 MEQ/L Chloride Level 104 MEQ/L Carbon Dioxide Level 27.9 MEQ/L Anion Gap 7 MEQ/L Estimat Glomerular Filtration Rate 61 ML/MIN Physical Exam General General Appearance: Well Developed, Well Nourished, No Acute Distress, Comfortable Eyes Eye Exam: Pupils Equal, Pupils Reactive, Sclera White, Extraocular Movement Intact Throat Throat Exam: Oral Mucosa [place] & Moist, Oral Pharynx Normal Neck Neck Exam: Neck Supple, Trachea Midline Pulmonary Resp Exam: Clear Bilaterally, Breath Sounds Equal, No Distress Cardiology CV Exam: Regular, Normal Sinus Rhythm Gastrointestinal/Abdomen GI Exam: Soft, Non-Tender, Bowel Sounds Present Musculoskeletal MS Exam: Joints Intact Integumentary Skin Exam: Clear, Warm, Dry, Intact Extremeties Extremities Exam: No Edema Neurologic Neuro Exam: Alert, Awake, Oriented, Speech Clear, Moving All Extremities, No Focal Deficits Psychiatric Psych Exam: Appropriate Responses VTE Prophylaxis VTE Prophylaxis Device: SCDs PUD Prophylasis PUD Prophylaxis: Protonix Assessment/Plan Assessment/Plan ASSESSMENT/PLAN 1. This is a 57-year female who came to the ER diagnosed with altered mental status/psychotic behavior/ Catatonia.. ..resolved The patient's CT brain does not show anything acute. checked metabolic workup and also the patient has high TSH 3.79. Urine toxic screen negative. Alcohol level was less than 3. Urinalysis did not show any urinary tract infection. neurology input noted for further recommendation. S/P an EEG. shows minimal encephalopathy.... Psychiatry input noted. holding trazodone and the citalopram. 2. Hypertension, uncontrolled. continue home medicine. The patient on clonidine + enalapril IV p.r.n. hypertension. 3. Mild hyponatremia which has resolved. 4. DVT prophylaxis with SCD. 5. GI prophylaxis with Protonix 40 mg PO daily. Check CBC with diff CMP in AM ok to transfer to Psych floor. waiting for bed at Psych unit. Discussed Condition with: Patient Tony Junior MD Jul 28, 2017 10:23
[2017-07-28] MEDS: LORazepam 1 MG TAB PO SCH ×3 (11:09→22:46)
[2017-07-28] MEDS: PANTOPRAZOLE SOD 40 MG DELAYED RELEASE TAB PO SCH (11:09)
[2017-07-28] MEDS: ONDANSETRON HCL 4 MG/2 ML VIAL IV PUSH PRN ×2 (11:09→22:58)
[2017-07-28 12:00] VITALS: BP 153/93; PULSE 81; RESP 18; TEMP 97.7; O2SAT 94
[2017-07-28 16:00] VITALS: BP 135/88; PULSE 72; RESP 18; TEMP 98.7; O2SAT 95
[2017-07-28 20:50] VITALS: BP_SYST 0; BP_SYST 138; BP_DIAS 96; PULSE 79; RESP 18; TEMP 99.3; O2SAT 96
[2017-07-28] MEDS: IBUPROFEN 800 MG TAB PO PRN (20:58)
[2017-07-29 00:07] VITALS: BP 117/74; PULSE 70; RESP 16; TEMP 98.3; O2SAT 95
[2017-07-29] MEDS: LORazepam 1 MG TAB PO SCH ×4 (05:08→23:00)
[2017-07-29 06:46] LABS: AUTOMATED NEUTROPHIL # 1.8 TH/MM3 (1.8-7.7); BASOPHIL % 1.2 % (0.0-2.0); EOSINOPHIL # 0.1 TH/MM3 (0-0.4); EOSINOPHIL % 2.3 % (0.0-4.0); HEMO FLAGS DIFF FINAL; LYMPH % 40.9 % (9.0-44.0); LYMPHOCYTE # 1.5 TH/MM3 (1.0-4.8); MEAN CELL VOLUME 91.5 FL (80.0-100.0); MEAN CORPUSCULAR HEMOGLOBIN 30.5 PG (27.0-34.0); MEAN CORPUSCULAR HGB CONC 33.3 % (32.0-36.0); MONO % 7.5 % (0.0-8.0); NEUT % 48.1 % (16.0-70.0); PLATELET COUNT 161 TH/MM3 (150-450); RED BLOOD COUNT 3.83 MIL/MM3 (4.00-5.30); RED CELL DISTRIBUTION WIDTH 12.9 % (11.6-17.2); WHITE BLOOD COUNT 3.7 TH/MM3 (4.0-11.0)
[2017-07-29 06:56] LABS: CHLORIDE 105 MEQ/L (98-107); SODIUM (NA) 140 MEQ/L (136-145)
[2017-07-29 07:02] LABS: ANION GAP 7 MEQ/L (5-15); BICARBONATE 28.3 MEQ/L (21.0-32.0)
[2017-07-29 07:03] LABS: BLOOD UREA NITROGEN 21 MG/DL (7-18)
[2017-07-29 07:06] LABS: ALT (GPT) 16 U/L (10-53); AST (GOT) 11 U/L (15-37); GLOMERULAR FILTRATION RATE 42 ML/MIN (>89)
[2017-07-29 07:07] LABS: TOTAL BILIRUBIN ADULT 0.2 MG/DL (0.2-1.0)
[2017-07-29 07:09] LABS: ALKALINE PHOSPHATASE 69 U/L (45-117)
[2017-07-29 08:00] VITALS: BP 160/102; PULSE 95; RESP 21; TEMP 98; O2SAT 95
--- NOTE | 2017-07-29 08:42 | HHI.PR ---
Subjective History of Present Illness Patient seen and examined no acute issue d/w RN ok to transfer to psych floor today. waiting for bed at Psych unit. Review of Systems Constitutional Constitutional: Fatigue, Weakness Neurologic Neurologic: Headache Vitals/Results Vital Signs Vital Signs Date Time Temp Pulse Resp B/P (MAP) Pulse Ox O2 Delivery O2 Flow Rate FiO2 07/29/17 08:00 98.0 95 21 160/102 (121) 95 07/29/17 00:07 98.3 70 16 117/74 (88) 95 07/28/17 20:50 99.3 79 18 138/96 (110) 96 0/ 07/28/17 16:00 98.7 72 18 135/88 (104) 95 07/28/17 12:00 97.7 81 18 153/93 (113) 94 CBC/BMP: 07/29/17 0610 07/29/17 0610 Lab Results Laboratory Tests Test 07/29/17 06:10 White Blood Count 3.7 TH/MM3 Red Blood Count 3.83 MIL/MM3 Hemoglobin 11.7 GM/DL Hematocrit 35.0 % Mean Corpuscular Volume 91.5 FL Mean Corpuscular Hemoglobin 30.5 PG Mean Corpuscular Hemoglobin Concent 33.3 % Red Cell Distribution Width 12.9 % Platelet Count 161 TH/MM3 Mean Platelet Volume 6.9 FL Neutrophils (%) (Auto) 48.1 % Lymphocytes (%) (Auto) 40.9 % Monocytes (%) (Auto) 7.5 % Eosinophils (%) (Auto) 2.3 % Basophils (%) (Auto) 1.2 % Neutrophils # (Auto) 1.8 TH/MM3 Lymphocytes # (Auto) 1.5 TH/MM3 Monocytes # (Auto) 0.3 TH/MM3 Eosinophils # (Auto) 0.1 TH/MM3 Basophils # (Auto) 0.0 TH/MM3 CBC Comment DIFF FINAL Differential Comment Blood Urea Nitrogen 21 MG/DL Creatinine 1.30 MG/DL Random Glucose 95 MG/DL Total Protein 6.1 GM/DL Albumin 3.1 GM/DL Calcium Level 8.2 MG/DL Alkaline Phosphatase 69 U/L Aspartate Amino Transf (AST/SGOT) 11 U/L Alanine Aminotransferase (ALT/SGPT) 16 U/L Total Bilirubin 0.2 MG/DL Sodium Level 140 MEQ/L Potassium Level 4.0 MEQ/L Chloride Level 105 MEQ/L Carbon Dioxide Level 28.3 MEQ/L Anion Gap 7 MEQ/L Estimat Glomerular Filtration Rate 42 ML/MIN Physical Exam General General Appearance: Well Developed, Well Nourished, No Acute Distress, Comfortable Eyes Eye Exam: Pupils Equal, Pupils Reactive, Sclera White, Extraocular Movement Intact Throat Throat Exam: Oral Mucosa [place] & Moist, Oral Pharynx Normal Neck Neck Exam: Neck Supple, Trachea Midline Pulmonary Resp Exam: Clear Bilaterally, Breath Sounds Equal, No Distress Cardiology CV Exam: Regular, Normal Sinus Rhythm Gastrointestinal/Abdomen GI Exam: Soft, Non-Tender, Bowel Sounds Present Musculoskeletal MS Exam: Joints Intact Integumentary Skin Exam: Clear, Warm, Dry, Intact Extremeties Extremities Exam: No Edema Neurologic Neuro Exam: Alert, Awake, Oriented, Speech Clear, Moving All Extremities, No Focal Deficits Psychiatric Psych Exam: Appropriate Responses VTE Prophylaxis VTE Prophylaxis Device: SCDs PUD Prophylasis PUD Prophylaxis: Protonix Assessment/Plan Assessment/Plan ASSESSMENT/PLAN 1. This is a 57-year female who came to the ER diagnosed with altered mental status/psychotic behavior/ Catatonia.. ..resolved The patient's CT brain does not show anything acute. checked metabolic workup and also the patient has high TSH 3.79. Urine toxic screen negative. Alcohol level was less than 3. Urinalysis did not show any urinary tract infection. neurology input noted for further recommendation. S/P an EEG. shows minimal encephalopathy.... Psychiatry input noted. holding trazodone and the citalopram. 2. Hypertension, uncontrolled. continue home medicine. The patient on clonidine + enalapril IV p.r.n. hypertension. 3. Mild hyponatremia which has resolved. 4. DVT prophylaxis with SCD. 5. GI prophylaxis with Protonix 40 mg PO daily. Check CBC with diff CMP in AM ok to transfer to Psych floor. waiting for bed at Psych unit. Discussed Condition with: Patient Tony Junior MD Jul 29, 2017 08:42
--- NOTE | 2017-07-29 08:46 | PQ ---
Physician Query Response Document PATIENT: JOSE MONAHAN : 1960 ADMIT DATE: 07/21/2017 5:57 PM DISCH DATE: RESPONDING PROVIDER #: EAhmed QUERY TEXT: Hypertension Specificity UNCONTROLLED HYPERTENSION is documented in the medical record. Please specify the type of hypertensi on such as: HTN URGENCY OR CRISIS HTN With heart disease HTN With hypertensive encephalopathy HTN With renal disease HYPERTENSION UNSPECIFIED Other Specify Unable to determine ?Secondary (please specify underlying cause) ?Urgency ??Other (please specify in the medical record) The patient's Clinical Indicators include: The following criteria/clinical indicators are documented in the medical record: BP 239 / 129 188/98 201/105 ON ADMISSION TX IV VASOTEC, LABATELOL, APRESOLINE X Systolic BP consistently >180 X Diastolic BP > 110 ? Symptomatic hypertension ? End-organ damage due to hypertension ( CALL CENTER SUPPORT CONSULTANT, renal, cardia c, vascular) Treatments: VASOTEC PO AND IV HYDRAZALINE IV Based on your medical judgment, can you further clarify which, if any, of the following this conditio n is intended to indicate: Query created by: Carolina Soto on 07/24/2017 1:40 PM RESPONSE TEXT: Hypertension unspecified. Electronically signed by: Tony Junior MD 07/29/2017 8:41 AM
[2017-07-29] MEDS: hydrALAZINE HCL 10 MG TAB PO SCH ×3 (08:47→17:22)
[2017-07-29] MEDS: DOCUSATE SODIUM 50 MG/SENNA 8.6 MG TAB PO SCH ×2 (08:47→20:56)
[2017-07-29] MEDS: SODIUM CHLORIDE 0.9% FLUSH 10 ML FLUSH IV FLUSH SCH ×2 (08:48→20:57)
[2017-07-29] MEDS: PANTOPRAZOLE SOD 40 MG DELAYED RELEASE TAB PO SCH (11:31)
[2017-07-29 12:00] VITALS: BP 144/61; PULSE 76; RESP 20; TEMP 97.8; O2SAT 97
[2017-07-29 16:00] VITALS: BP 140/99; PULSE 75; RESP 20; TEMP 98; O2SAT 97
[2017-07-29] MEDS: ONDANSETRON HCL 4 MG/2 ML VIAL IV PUSH PRN (17:25)
[2017-07-29 20:00] VITALS: BP 147/107; PULSE 75; RESP 20; TEMP 98.3; O2SAT 98
[2017-07-29] MEDS: ENALAPRILAT 1.25 MG/ML VIAL IV PUSH PRN (20:57)
[2017-07-29] MEDS: cloNIDine HCL 0.1 MG TAB PO PRN (21:31)
[2017-07-30] VITALS: BP 125/94; PULSE 76; RESP 20; TEMP 98.1; O2SAT 98
[2017-07-30] MEDS: LORazepam 1 MG TAB PO SCH ×4 (02:54→22:23)
[2017-07-30 08:00] VITALS: BP 138/97; PULSE 70; RESP 20; TEMP 98; O2SAT 98
[2017-07-30 08:49] LABS: BASOPHIL % 0.5 % (0.0-2.0); EOSINOPHIL # 0.4 TH/MM3 (0-0.4); EOSINOPHIL % 6.8 % (0.0-4.0); HEMATOCRIT 35.8 % (35.0-46.0); LYMPHOCYTE # 2.3 TH/MM3 (1.0-4.8); MEAN CELL VOLUME 90.2 FL (80.0-100.0); MEAN CORPUSCULAR HGB CONC 32.1 % (32.0-36.0); MONO % 6.1 % (0.0-8.0); NEUT % 49.6 % (16.0-70.0); PLATELET COUNT 186 TH/MM3 (150-450); RED BLOOD COUNT 3.97 MIL/MM3 (4.00-5.30); RED CELL DISTRIBUTION WIDTH 12.4 % (11.6-17.2); WHITE BLOOD COUNT 6.1 TH/MM3 (4.0-11.0)
[2017-07-30 08:50] LABS: CHLORIDE 106 MEQ/L (98-107); SODIUM (NA) 139 MEQ/L (136-145)
[2017-07-30 09:00] LABS: ANION GAP 9 MEQ/L (5-15); BICARBONATE 24.3 MEQ/L (21.0-32.0); BLOOD UREA NITROGEN 15 MG/DL (7-18)
[2017-07-30] MEDS: SODIUM CHLORIDE 0.9% FLUSH 10 ML FLUSH IV FLUSH SCH ×2 (09:00→21:00)
[2017-07-30 09:03] LABS: ALT (GPT) 15 U/L (10-53); AST (GOT) 19 U/L (15-37); GLOMERULAR FILTRATION RATE 61 ML/MIN (>89)
[2017-07-30 09:05] LABS: TOTAL BILIRUBIN ADULT 0.3 MG/DL (0.2-1.0)
[2017-07-30 09:06] LABS: ALKALINE PHOSPHATASE 68 U/L (45-117)
[2017-07-30 09:07] LABS: HEMO FLAGS AUTO DIFF
[2017-07-30] MEDS: hydrALAZINE HCL 10 MG TAB PO SCH ×3 (09:14→17:04)
[2017-07-30] MEDS: DOCUSATE SODIUM 50 MG/SENNA 8.6 MG TAB PO SCH ×2 (09:14→21:19)
[2017-07-30 10:19] LABS: EOSINOPHILS 4 % (0-4); NEUTROPHIL # MANUAL DIFF 2.7 TH/MM3 (1.8-7.7); PLATELET ESTIMATE SMEAR NORMAL (NORMAL); PLATELET MORPHOLOGY NORMAL (NORMAL); POLYS (SEG NEUTROPHILS) 44 % (16-70); SCAN/DIFF FINAL DIFF MANUAL; WBC DIFF SAMPLE 100
[2017-07-30] MEDS: PANTOPRAZOLE SOD 40 MG DELAYED RELEASE TAB PO SCH (11:12)
[2017-07-30] MEDS: IBUPROFEN 800 MG TAB PO PRN (11:12)
[2017-07-30 12:00] VITALS: BP 110/73; PULSE 75; RESP 20; TEMP 97.4; O2SAT 98
--- NOTE | 2017-07-30 12:15 | HHI.PR ---
Subjective Remarks Patient awake alert oriented eating well. Complains of mild headache. Objective Vitals Vital Signs Date Time Temp Pulse Resp B/P (MAP) Pulse Ox O2 Delivery O2 Flow Rate FiO2 07/30/17 08:00 98.0 70 20 138/97 (111) 98 07/30/17 00:00 98.1 76 20 125/94 (104) 98 07/29/17 20:00 98.3 75 20 147/107 (120) 98 Manual Cuff/Auscultation 07/29/17 16:00 98.0 75 20 140/99 (113) 97 I/O 07/29/17 07/29/17 07/29/17 07/30/17 07/30/17 07/30/17 07:00 15:00 23:00 07:00 15:00 23:00 Intake Total 730 ml 120 ml Balance 730 ml 120 ml Intake Oral 730 ml 120 ml # Voids 2 3 2 # Bowel Movements 0 0 Result Diagram: 07/30/1763907/30/17639 Objective Remarks GENERAL: Well-nourished, well-developed female patient. SKIN: Warm and dry. HEAD: Normocephalic. EYES: No scleral icterus. No injection or drainage. NECK: Supple, trachea midline. No JVD or lymphadenopathy. CARDIOVASCULAR: Regular rate and rhythm without murmurs, gallops, or rubs. RESPIRATORY: Breath sounds equal bilaterally. No accessory muscle use. GASTROINTESTINAL: Abdomen soft, non-tender, nondistended. EXTREMITIES: No cyanosis, or edema. NEUROLOGICAL: Awake, alert, and oriented x 3. Non-focal. A/P Assessment and Plan 1. This is a 57-year female who came to the ER diagnosed with altered mental status/psychotic behavior/ Catatonia.. ..resolved The patient's CT brain does not show anything acute. checked metabolic workup and also the patient has high TSH 3.79. Urine toxic screen negative. Alcohol level was less than 3. Urinalysis did not show any urinary tract infection. neurology input noted for further recommendation. S/P an EEG. shows minimal encephalopathy.... Psychiatry input noted. holding trazodone and the citalopram. Stable for transfer to inpatient psychiatry when bed available. Mental status has improved she is now alert oriented eating well. 2. Hypertension, uncontrolled. continue home medicine. The patient on clonidine + enalapril IV p.r.n. hypertension. 3. Mild hyponatremia which has resolved. 4. DVT prophylaxis with SCD. 5. GI prophylaxis with Protonix 40 mg PO daily. Claudia Buckner MD Jul 30, 2017 12:15
[2017-07-30 16:00] VITALS: BP 129/85; PULSE 73; RESP 21; TEMP 98; O2SAT 98
[2017-07-30 20:00] VITALS: BP 190/114; PULSE 78; RESP 20; TEMP 97.3; O2SAT 99
[2017-07-30] MEDS: cloNIDine HCL 0.1 MG TAB PO PRN (21:19)
[2017-07-31] VITALS (7 sets, daily range): BP systolic 147–175; BP diastolic 84–121; PULSE 49–94; RESP 15–20; TEMP 96–98.9; O2SAT 96–99
[2017-07-31] MEDS: LORazepam 1 MG TAB PO SCH ×4 (05:24→22:15)
[2017-07-31 07:36] LABS: CHLORIDE 106 MEQ/L (98-107); POTASSIUM 3.8 MEQ/L (3.5-5.1); SODIUM (NA) 141 MEQ/L (136-145)
[2017-07-31 07:44] LABS: ANION GAP 7 MEQ/L (5-15); BICARBONATE 27.8 MEQ/L (21.0-32.0)
[2017-07-31 07:45] LABS: BLOOD UREA NITROGEN 13 MG/DL (7-18)
[2017-07-31 07:47] LABS: ALT (GPT) 15 U/L (10-53); AST (GOT) 15 U/L (15-37)
[2017-07-31 07:48] LABS: GLOMERULAR FILTRATION RATE 65 ML/MIN (>89); TOTAL BILIRUBIN ADULT 0.3 MG/DL (0.2-1.0)
[2017-07-31 07:50] LABS: ALKALINE PHOSPHATASE 69 U/L (45-117)
[2017-07-31] MEDS: DOCUSATE SODIUM 50 MG/SENNA 8.6 MG TAB PO SCH ×2 (08:26→20:21)
[2017-07-31] MEDS: IBUPROFEN 800 MG TAB PO PRN (08:26)
[2017-07-31] MEDS: SODIUM CHLORIDE 0.9% FLUSH 10 ML FLUSH IV FLUSH SCH ×2 (08:27→20:21)
[2017-07-31] MEDS: hydrALAZINE HCL 10 MG TAB PO SCH ×3 (08:27→17:04)
[2017-07-31 08:40] LABS: AUTOMATED NEUTROPHIL # 1.7 TH/MM3 (1.8-7.7); BASOPHIL % 0.9 % (0.0-2.0); EOSINOPHIL # 0.1 TH/MM3 (0-0.4); EOSINOPHIL % 1.8 % (0.0-4.0); HEMATOCRIT 33.6 % (35.0-46.0); HEMO FLAGS DIFF FINAL; LYMPH % 38.6 % (9.0-44.0); LYMPHOCYTE # 1.3 TH/MM3 (1.0-4.8); MEAN CELL VOLUME 91.8 FL (80.0-100.0); MEAN CORPUSCULAR HEMOGLOBIN 30.4 PG (27.0-34.0); MEAN CORPUSCULAR HGB CONC 33.1 % (32.0-36.0); MONO % 8.5 % (0.0-8.0); NEUT % 50.2 % (16.0-70.0); PLATELET COUNT 153 TH/MM3 (150-450); RED BLOOD COUNT 3.66 MIL/MM3 (4.00-5.30); RED CELL DISTRIBUTION WIDTH 12.9 % (11.6-17.2); WHITE BLOOD COUNT 3.4 TH/MM3 (4.0-11.0)
[2017-07-31] MEDS: PANTOPRAZOLE SOD 40 MG DELAYED RELEASE TAB PO SCH (10:28)
[2017-07-31] MEDS: ACETAMIN 325 MG/BUTALBITAL 50 MG/CAFFEINE 40 MG TAB PO PRN (10:28)
[2017-07-31] MEDS: ONDANSETRON ODT 4 MG TAB PO PRN ×2 (10:29→17:08)
--- NOTE | 2017-07-31 20:10 | HHI.PR ---
Subjective History of Present Illness Patient seen and examined EEG Shows minimal encephalopathy ok to transfer to psych floor today. waiting for bed at Psych unit. Review of Systems Constitutional Constitutional: Fatigue, Weakness Neurologic Neurologic: Headache Vitals/Results Intake & Output 07/31/17 07/31/17 08/01/17 15:00 23:00 07:00 Intake Total 60 ml Balance 60 ml Intake Oral 60 ml # Voids 6 # Bowel Movements 0 1 Vital Signs Vital Signs Date Time Temp Pulse Resp B/P (MAP) Pulse Ox O2 Delivery O2 Flow Rate FiO2 07/31/17 18:33 158/84 (108) 07/31/17 17:01 98.2 80 15 175/121 (139) 99 07/31/17 12:00 98.4 74 20 165/90 (115) 97 07/31/17 08:00 97.9 60 20 156/90 (112) 96 07/31/17 06:00 96.0 49 20 160/92 (114) 98 Automatic Cuff 07/31/17 00:00 96.7 63 20 147/96 (113) 98 CBC/BMP: 07/31/17 0615 07/31/17 0615 Lab Results Laboratory Tests Test 07/31/17 06:15 White Blood Count 3.4 TH/MM3 Red Blood Count 3.66 MIL/MM3 Hemoglobin 11.1 GM/DL Hematocrit 33.6 % Mean Corpuscular Volume 91.8 FL Mean Corpuscular Hemoglobin 30.4 PG Mean Corpuscular Hemoglobin Concent 33.1 % Red Cell Distribution Width 12.9 % Platelet Count 153 TH/MM3 Mean Platelet Volume 7.4 FL Neutrophils (%) (Auto) 50.2 % Lymphocytes (%) (Auto) 38.6 % Monocytes (%) (Auto) 8.5 % Eosinophils (%) (Auto) 1.8 % Basophils (%) (Auto) 0.9 % Neutrophils # (Auto) 1.7 TH/MM3 Lymphocytes # (Auto) 1.3 TH/MM3 Monocytes # (Auto) 0.3 TH/MM3 Eosinophils # (Auto) 0.1 TH/MM3 Basophils # (Auto) 0.0 TH/MM3 CBC Comment DIFF FINAL Differential Comment Blood Urea Nitrogen 13 MG/DL Creatinine 0.89 MG/DL Random Glucose 91 MG/DL Total Protein 6.2 GM/DL Albumin 3.2 GM/DL Calcium Level 8.4 MG/DL Alkaline Phosphatase 69 U/L Aspartate Amino Transf (AST/SGOT) 15 U/L Alanine Aminotransferase (ALT/SGPT) 15 U/L Total Bilirubin 0.3 MG/DL Sodium Level 141 MEQ/L Potassium Level 3.8 MEQ/L Chloride Level 106 MEQ/L Carbon Dioxide Level 27.8 MEQ/L Anion Gap 7 MEQ/L Estimat Glomerular Filtration Rate 65 ML/MIN Physical Exam General General Appearance: Well Developed, Well Nourished, No Acute Distress, Comfortable Eyes Eye Exam: Pupils Equal, Pupils Reactive, Sclera White, Extraocular Movement Intact Throat Throat Exam: Oral Mucosa [place] & Moist, Oral Pharynx Normal Neck Neck Exam: Neck Supple, Trachea Midline Pulmonary Resp Exam: Clear Bilaterally, Breath Sounds Equal, No Distress Cardiology CV Exam: Regular, Normal Sinus Rhythm Gastrointestinal/Abdomen GI Exam: Soft, Non-Tender, Bowel Sounds Present Musculoskeletal MS Exam: Joints Intact Integumentary Skin Exam: Clear, Warm, Dry, Intact Extremeties Extremities Exam: No Edema Neurologic Neuro Exam: Alert, Awake, Oriented, Speech Clear, Moving All Extremities, No Focal Deficits Psychiatric Psych Exam: Appropriate Responses VTE Prophylaxis VTE Prophylaxis Device: SCDs PUD Prophylasis PUD Prophylaxis: Protonix Assessment/Plan Assessment/Plan ASSESSMENT/PLAN 1. This is a 57-year female who came to the ER diagnosed with altered mental status/psychotic behavior/ Catatonia.. ..resolved The patient's CT brain does not show anything acute. checked metabolic workup and also the patient has high TSH 3.79. Urine toxic screen negative. Alcohol level was less than 3. Urinalysis did not show any urinary tract infection. neurology input noted for further recommendation. S/P an EEG. shows minimal encephalopathy.... Psychiatry input noted. holding trazodone and the citalopram. 2. Hypertension, uncontrolled. continue home medicine. The patient on clonidine + enalapril IV p.r.n. hypertension. 3. Mild hyponatremia which has resolved. 4. DVT prophylaxis with SCD. 5. GI prophylaxis with Protonix 40 mg PO daily. Check CBC with diff CMP in AM ok to transfer to Psych floor. waiting for bed at Psych unit. Discussed Condition with: Patient Tony Junior MD Jul 31, 2017 20:10
[2017-07-31] MEDS: cloNIDine HCL 0.1 MG TAB PO PRN (22:15)
[2017-08-01] VITALS: BP 152/95; PULSE 73; RESP 20; TEMP 97.1; O2SAT 96
[2017-08-01] MEDS: LORazepam 1 MG TAB PO SCH (05:41)
[2017-08-01 06:59] LABS: BASOPHIL % 0.7 % (0.0-2.0); EOSINOPHIL # 0.1 TH/MM3 (0-0.4); EOSINOPHIL % 1.6 % (0.0-4.0); HEMATOCRIT 33.9 % (35.0-46.0); HEMO FLAGS DIFF FINAL; LYMPH % 37.2 % (9.0-44.0); LYMPHOCYTE # 1.4 TH/MM3 (1.0-4.8); MEAN CELL VOLUME 89.4 FL (80.0-100.0); MEAN CORPUSCULAR HEMOGLOBIN 29.9 PG (27.0-34.0); MEAN CORPUSCULAR HGB CONC 33.4 % (32.0-36.0); MONO % 7.8 % (0.0-8.0); NEUT % 52.7 % (16.0-70.0); PLATELET COUNT 159 TH/MM3 (150-450); RED BLOOD COUNT 3.79 MIL/MM3 (4.00-5.30); RED CELL DISTRIBUTION WIDTH 12.4 % (11.6-17.2); WHITE BLOOD COUNT 3.9 TH/MM3 (4.0-11.0)
[2017-08-01 07:00] LABS: CHLORIDE 104 MEQ/L (98-107); POTASSIUM 3.8 MEQ/L (3.5-5.1); SODIUM (NA) 139 MEQ/L (136-145)
[2017-08-01 07:04] LABS: ANION GAP 8 MEQ/L (5-15); BICARBONATE 27.4 MEQ/L (21.0-32.0); BLOOD UREA NITROGEN 10 MG/DL (7-18)
[2017-08-01 07:07] LABS: ALT (GPT) 17 U/L (10-53); AST (GOT) 16 U/L (15-37); GLOMERULAR FILTRATION RATE 57 ML/MIN (>89)
[2017-08-01 07:08] LABS: TOTAL BILIRUBIN ADULT 0.2 MG/DL (0.2-1.0)
[2017-08-01 07:10] LABS: ALKALINE PHOSPHATASE 70 U/L (45-117)
[2017-08-01] MEDS: ACETAMIN 325 MG/BUTALBITAL 50 MG/CAFFEINE 40 MG TAB PO PRN (08:20)
[2017-08-01] MEDS: DOCUSATE SODIUM 50 MG/SENNA 8.6 MG TAB PO SCH ×2 (08:21→21:03)
[2017-08-01] MEDS: hydrALAZINE HCL 10 MG TAB PO SCH ×3 (08:21→17:39)
--- NOTE | 2017-08-01 08:23 | HHI.PYPN ---
Subjective Remarks Patient was seen today for psychiatric reevaluation, case was discussed with nurse in charge. Documentation review. Patient was found sleeping, but easily arousable. Cooperative, calm, pleasant. However, mild to moderate psychomotor retardation/flat affect/poverty of speech noted. Patient reports that she has been doing much better in the last days," but I know so something is wrong with me in a one my psychiatric medication to be adjusted and be stabilized". Patient clarifies that she came from [place] to [place] to help her daughter with her grandkids "and I want to be able to do a good job and be in optimal conditions". Patient reports psychiatric history of depression and psychosis, multiple psychiatric hospitalizations, but denies suicidal attempts. She has been in multiple psychotropics, but she doesn't remember the names. She has been partially compliant with her medications in the past. She reports episodes of sharon auditory hallucinations and paranoia in the past, denies now. However at this moment patient reports depressed mood, anhedonia, frequent episodes of sadness and tears, intrusive thoughts of not being able to function in the society, decreased self esteem. Patient denies suicidal ideation, but express "I see myself going that way if I don't get better". Patient is fully oriented 3, no attention deficit, no fluctuation of consciousness. At this moment other than flat affect and mild poverty of speech the patient does not present any prominent symptomatology of catatonia. Review of Systems Psychiatric: COMPLAINS OF: Depression Objective Alert: Yes [place]: Person, Place, Date, Situation Mood: Depressed Affect: Flat Memory Intact: Comment (no prominent memory problems) Hallucinations: Other (she denies at the moment) Delusions: No Delusion Type: Other (not elicited) Suicidal: Ideation (no SI) Homicidal: Ideation (no HI) Insight/Judgment Fair Labs Test 08/01/17 05:40 White Blood Count 3.9 TH/MM3 Red Blood Count 3.79 MIL/MM3 Hemoglobin 11.3 GM/DL Hematocrit 33.9 % Mean Corpuscular Volume 89.4 FL Mean Corpuscular Hemoglobin 29.9 PG Mean Corpuscular Hemoglobin Concent 33.4 % Red Cell Distribution Width 12.4 % Platelet Count 159 TH/MM3 Mean Platelet Volume 7.2 FL Neutrophils (%) (Auto) 52.7 % Lymphocytes (%) (Auto) 37.2 % Monocytes (%) (Auto) 7.8 % Eosinophils (%) (Auto) 1.6 % Basophils (%) (Auto) 0.7 % Neutrophils # (Auto) 2.0 TH/MM3 Lymphocytes # (Auto) 1.4 TH/MM3 Monocytes # (Auto) 0.3 TH/MM3 Eosinophils # (Auto) 0.1 TH/MM3 Basophils # (Auto) 0.0 TH/MM3 CBC Comment DIFF FINAL Differential Comment Blood Urea Nitrogen 10 MG/DL Creatinine 1.00 MG/DL Random Glucose 96 MG/DL Total Protein 6.2 GM/DL Albumin 3.2 GM/DL Calcium Level 8.2 MG/DL Alkaline Phosphatase 70 U/L Aspartate Amino Transf (AST/SGOT) 16 U/L Alanine Aminotransferase (ALT/SGPT) 17 U/L Total Bilirubin 0.2 MG/DL Sodium Level 139 MEQ/L Potassium Level 3.8 MEQ/L Chloride Level 104 MEQ/L Carbon Dioxide Level 27.4 MEQ/L Anion Gap 8 MEQ/L Estimat Glomerular Filtration Rate 57 ML/MIN Vitals/IOs Vital Signs Date Time Temp Pulse Resp B/P (MAP) Pulse Ox O2 Delivery O2 Flow Rate FiO2 08/01/17 00:00 97.1 73 20 152/95 (114) 96 Intake and Output 08/01/17 08/01/17 08/02/17 08:00 16:00 00:00 Intake Total 340 ml Balance 340 ml Assessment & Plan Problem List: (1) 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 She denies perceptual disturbances, paranoia and delusions. However, patient reports symptoms of depression assisting and frequent sadness, poor sleep, suicidal thoughts, anhedonia, decreased self esteem, intrusive thoughts about not being able to function in the society. Patient contracted for safety. She is willing to be transferred to psychiatry and be admitted voluntarily. I would restart the Lexapro 10 mg for depression, trazodone 100 mg to help with sleep and depression. Will monitor closely symptoms of catatonia and psychosis. Extensive support, motivation and psychoeducation provided. Transfer to psychiatry. Assessment & Plan Estimated LOS: days Justification for Cont. Inpt. Patient presents with moderate to severe symptoms of depression, suicidal thoughts, she was recently catatonic. She needs to be admitted for medication adjustment and safety. Kiran Bobby MD Aug 01, 2017 08:23
[2017-08-01 08:32] VITALS: BP 150/90; PULSE 53; RESP 16; TEMP 97.2; O2SAT 97
[2017-08-01] MEDS: SODIUM CHLORIDE 0.9% FLUSH 10 ML FLUSH IV FLUSH SCH ×2 (08:32→21:00)
[2017-08-01] MEDS ORDERED: ESCITALOPRAM OXALATE 10 MG TAB PO SCH (09:00)
[2017-08-01] MEDS: PANTOPRAZOLE SOD 40 MG DELAYED RELEASE TAB PO SCH (11:23)
--- NOTE | 2017-08-01 11:37 | HHI.PR ---
Subjective History of Present Illness Patient seen and examined Psych reconsulted input noted started on Lexapro and Trazadone ok to transfer to psych floor today. waiting for bed at Psych unit. d/w JOSE Broussard Review of Systems Constitutional Constitutional: Fatigue, Weakness Neurologic Neurologic: Headache Vitals/Results Vital Signs Vital Signs Date Time Temp Pulse Resp B/P (MAP) Pulse Ox O2 Delivery O2 Flow Rate FiO2 08/01/17 08:32 97.2 53 16 150/90 (110) 97 08/01/17 00:00 97.1 73 20 152/95 (114) 96 07/31/17 20:00 98.9 94 18 162/90 (114) 97 07/31/17 18:33 158/84 (108) 07/31/17 17:01 98.2 80 15 175/121 (139) 99 07/31/17 12:00 98.4 74 20 165/90 (115) 97 CBC/BMP: 08/01/17 0540 08/01/17 0540 Lab Results Laboratory Tests Test 08/01/17 05:40 White Blood Count 3.9 TH/MM3 Red Blood Count 3.79 MIL/MM3 Hemoglobin 11.3 GM/DL Hematocrit 33.9 % Mean Corpuscular Volume 89.4 FL Mean Corpuscular Hemoglobin 29.9 PG Mean Corpuscular Hemoglobin Concent 33.4 % Red Cell Distribution Width 12.4 % Platelet Count 159 TH/MM3 Mean Platelet Volume 7.2 FL Neutrophils (%) (Auto) 52.7 % Lymphocytes (%) (Auto) 37.2 % Monocytes (%) (Auto) 7.8 % Eosinophils (%) (Auto) 1.6 % Basophils (%) (Auto) 0.7 % Neutrophils # (Auto) 2.0 TH/MM3 Lymphocytes # (Auto) 1.4 TH/MM3 Monocytes # (Auto) 0.3 TH/MM3 Eosinophils # (Auto) 0.1 TH/MM3 Basophils # (Auto) 0.0 TH/MM3 CBC Comment DIFF FINAL Differential Comment Blood Urea Nitrogen 10 MG/DL Creatinine 1.00 MG/DL Random Glucose 96 MG/DL Total Protein 6.2 GM/DL Albumin 3.2 GM/DL Calcium Level 8.2 MG/DL Alkaline Phosphatase 70 U/L Aspartate Amino Transf (AST/SGOT) 16 U/L Alanine Aminotransferase (ALT/SGPT) 17 U/L Total Bilirubin 0.2 MG/DL Sodium Level 139 MEQ/L Potassium Level 3.8 MEQ/L Chloride Level 104 MEQ/L Carbon Dioxide Level 27.4 MEQ/L Anion Gap 8 MEQ/L Estimat Glomerular Filtration Rate 57 ML/MIN Physical Exam General General Appearance: Well Developed, Well Nourished, No Acute Distress, Comfortable Eyes Eye Exam: Pupils Equal, Pupils Reactive, Sclera White, Extraocular Movement Intact Throat Throat Exam: Oral Mucosa [place] & Moist, Oral Pharynx Normal Neck Neck Exam: Neck Supple, Trachea Midline Pulmonary Resp Exam: Clear Bilaterally, Breath Sounds Equal, No Distress Cardiology CV Exam: Regular, Normal Sinus Rhythm Gastrointestinal/Abdomen GI Exam: Soft, Non-Tender, Bowel Sounds Present Musculoskeletal MS Exam: Joints Intact Integumentary Skin Exam: Clear, Warm, Dry, Intact Extremeties Extremities Exam: No Edema Neurologic Neuro Exam: Alert, Awake, Oriented, Speech Clear, Moving All Extremities, No Focal Deficits Psychiatric Psych Exam: Appropriate Responses VTE Prophylaxis VTE Prophylaxis Device: SCDs PUD Prophylasis PUD Prophylaxis: Protonix Assessment/Plan Assessment/Plan ASSESSMENT/PLAN 1. This is a 57-year female who came to the ER diagnosed with altered mental status/psychotic behavior/ Catatonia.. ..resolved The patient's CT brain does not show anything acute. checked metabolic workup and also the patient has high TSH 3.79. Urine toxic screen negative. Alcohol level was less than 3. Urinalysis did not show any urinary tract infection. neurology input noted for further recommendation. S/P an EEG. shows minimal encephalopathy.... Psychiatry input noted. started on trazodone and the Lexapro by Psychiatrist. 2. Hypertension, uncontrolled. continue home medicine. The patient on clonidine + enalapril IV p.r.n. hypertension. 3. Mild hyponatremia which has resolved. 4. DVT prophylaxis with SCD. 5. GI prophylaxis with Protonix 40 mg PO daily. Check CBC with diff CMP in AM ok to transfer to Psych floor. waiting for bed at Psych unit. Discussed Condition with: Patient Tony Junior MD Aug 01, 2017 11:37
[2017-08-01 12:00] VITALS: BP 143/91; PULSE 65; RESP 18; TEMP 98; O2SAT 98
[2017-08-01] MEDS ORDERED: LORazepam 1 MG TAB PO SCH (14:00)
[2017-08-01 16:00] VITALS: BP 144/96; PULSE 80; RESP 18; TEMP 97.6; O2SAT 99
[2017-08-01] MEDS: IBUPROFEN 800 MG TAB PO PRN (16:12)
[2017-08-01 20:00] VITALS: BP 150/88; PULSE 70; RESP 16; TEMP 97.6; O2SAT 97
[2017-08-01] MEDS ORDERED: traZODone HCL 100 MG TAB PO SCH (21:00)
== END 2017-08-01 22:48 | disposition short-term general hospital (02) | DRG 885 ==
LOC: PHED 13:15 → PHEDA 17:57 → PHICU 19:03 → PH3B 07-23 14:39
PROVIDERS: ADMIT Family Medicine; ATTEND Family Medicine
DX: F20.9 Schizophrenia, unspecified (principal); G93.40 Encephalopathy, unspecified; E87.1 Hypo-osmolality and hyponatremia; F06.1 Catatonic disorder due to known physiological condition; I10 Essential (primary) hypertension; F43.21 Adjustment disorder with depressed mood; E87.6 Hypokalemia; I16.0 Hypertensive urgency; K58.9 Irritable bowel syndrome, unspecified; M79.7 Fibromyalgia; Z79.899 Other long term (current) drug therapy; N28.9 Disorder of kidney and ureter, unspecified; F41.8 Other specified anxiety disorders; M54.5 Low back pain; R00.0 Tachycardia, unspecified
CPT/HCPCS: 70450; 80048; 80053; 80307; 81001; 82140; 82550; 82607; 82746; 83540; 83735; 84100; 84439; 84443; 85007; 85025; 85027; 86038; 86039; 86592; 93005; 95819; 96361; 96374; 96376; C9113; J0360; J2060; J2405; J7030; J7042; P9612

== ENCOUNTER 2017-08-01 20:40 | Inpatient (IN) | payer OTHER ==
[~2017-08-01] VITALS: Ht 165.1 cm; Wt 77.1 kg
[~2017-08-01 20:40] MED LIST changes: -ALPR1TAB3 PO; -AMLO10TA2 PO; -DEXT1TAB18 PO; -DICY20TA10 PO; -FOLI1TAB6 PO; -FURO40TA PO; -IBUP800T23 PO; -POTA-163 PO; -PROM25TA10 PO; -TERA2CAP3 PO; -TIZA4CAP3 PO; -VENTAER INH; -ZYPR5TAB PO
[2017-08-02 00:28] VITALS: PULSE 74; RESP 16; TEMP 98.2; O2SAT 95
[2017-08-02] MEDS ORDERED: ALUMINUM/MAGNESIUM/SIMETH 30 ML CUP PO PRN (02:15)
[2017-08-02] MEDS ORDERED: cloNIDine HCL 0.1 MG TAB PO PRN (02:15)
[2017-08-02] MEDS ORDERED: LORazepam 2 MG/ML VIAL IM PRN (02:15)
[2017-08-02] MEDS ORDERED: LABETALOL HCL 100 MG/20 ML VIAL IV PRN (02:15)
[2017-08-02] MEDS ORDERED: MAGNESIUM HYDROXIDE SUSP 30 ML CUP PO PRN (02:15)
[2017-08-02] MEDS ORDERED: BISACODYL 10 MG SUPP RECTAL PRN (02:15)
[2017-08-02] MEDS ORDERED: LACTULOSE SYRUP 20 GM/30 ML CUP PO PRN (02:15)
[2017-08-02] MEDS: LORazepam 1 MG TAB PO PRN (02:41)
[2017-08-02] MEDS: LORazepam 1 MG TAB PO SCH ×3 (06:00→21:39)
[2017-08-02 06:09] VITALS: BP 127/71; PULSE 66; RESP 15; TEMP 98.4; O2SAT 97
[2017-08-02] MEDS: PANTOPRAZOLE SOD 40 MG DELAYED RELEASE TAB PO SCH (08:00)
[2017-08-02] MEDS: ACETAMINOPHEN 325 MG TAB PO PRN (08:00)
[2017-08-02] MEDS: NICOTINE 21 MG/24 HR PATCH T-DERMAL SCH (08:03)
[2017-08-02] MEDS ORDERED: ESCITALOPRAM OXALATE 20 MG TAB PO SCH (09:00)
[2017-08-02] MEDS: ONDANSETRON ODT 4 MG TAB PO PRN (09:16)
[2017-08-02] MEDS: ACETAMIN 325 MG/BUTALBITAL 50 MG/CAFFEINE 40 MG TAB PO PRN (12:06)
--- NOTE | 2017-08-02 14:58 | HHI.HP ---
Provisional Diagnosis Admission Date Aug 01, 2017 at 23:30 [place] I. Schizophrenia, catatonic [place] II. Deferred Certification of Person's Competence To Provide Express and Informed Consent I have personally examined Twyla Gann , a person being served at [facility] on, Aug 02, 2017 14:48. Express and informed consent means consent voluntarily given in writing, by a competent person, after sufficient explanation and disclosure of the subject matter involved to enable the person to make a knowing and willful decision without any element of force, fraud, deceit, duress, or other form of constraint or coercion. This person is 18 years of age or older, is not now known to be incompetent to consent to treatment with a guardian advocate, and does not have a health care surrogate or proxy currently making medical treatment decisions. I have found this person to be one of the following: [x] Competent to provide express and informed consent, as defined above, for voluntary admission to this facility and is competent to provide express and informed consent for treatment. He/she has the consistent capacity to make well reasoned, willful, and knowing decisions concerning his or her medical or mental health treatment. The person fully and consistently understands the purpose of the admission for examination/placement and is fully capable of personally exercising all rights assured under [place] Incompetent to provide express and informed consent to voluntary admission, and this is incompetent to provide express and informed consent to treatment. The person must be transferred to involuntary status and a petition for a guardian advocate filed with the Circuit Court. [] Refusing to provide express and informed consent to voluntary admission but is competent to provide express and informed consent for treatment. The person must be discharged or transferred to involuntary status. Form shall be completed within 24 hours of a person's arrival at the receiving facility and filed in the clinical record of each person: 1. Admitted on a voluntary basis 2. Permitted to provide express and informed consent to his/her own treatment 3. Allowed to transfer from involuntary to voluntary status 4. Prior to permitting a person to consent to his or her own treatment after having been previously found incompetent to consent to treatment. History of Present Illness Capacity: Has Capacity HPI 07/21/[address] Remy documentation : Ms. Gann is a 57 year-old female with a history of unclear psychiatric history, possible schizophrenia diagnosis, who presented to the ED brought in by her daughter for odd behavior. Reviewing the EMR, I see no prior psychiatric contact within our system.Patient seen and examined. Chart reviewed. Case discussed with RN. Neuro consultation and workup noted. On my exam patient is stuporous and mute. She presents with purposeless movements including shoulder shrugging and neck flexion/extension. Posturing noted. [place] noted. [place] noted. No waxy flexibility. She does not follow simple commands. Based on my evaluation and collateral from daughter, below, I suspect catatonia and have asked the nurse to administer 2mg Ativan slow IV push over 2 minutes. I have d/ w daughter R/B/A of Ativan challenge.Patient is unable to provide any past psychiatric, family, chem dep or social history because of her current mental status.Patient's daughter, Ms. Barragan, is at the bedside. She reports that she had limited contact with mother until earlier this year when she brought patient down from [place] to live with her. She notes that patient had been residing in a nursing facility in [place] and had been on Xanax. Patient lived with daughter for several months without serious incident. She did exhibit some odd behaviors even then, such as hoarding toilet paper rolls, believing that people were watching her, stealing items of no value, etc. Daughter also noted a memory decrement since she last was in close contact with patient. Daughter took patient to Dr. Gaston at [facility] to establish psychiatric care, and patient has had several visits with Dr. Gaston but was not started on any psychotropics until about 1 week ago when she was started on Zyprexa and Effexor at low dose. Daughter notes that on Sunday before the weekend, patient became more confused and became immobile, and daughter brought patient into ED. She notes patient may have had ~4 previous similar episodes in the past. She notes patient has made suicidal threats but no attempts. Family history of BPAD and also dementia in patient's mother. Daughter notes patient has an extensive history of substance use issues, including hallucinogens and alcohol.Re-examined patient ~15min after Ativan challenge. Complete resolution of above symptoms and signs. Patient is awake, alert and interactive. Speaking readily and fluently. She tells me that she has "not been feeling well lately." Mood is somewhat depressed. Denies SI/HI. Possibly some paranoia and ideas of reference. Vague AVH, no reported CAH. Unsure of her psychiatric diagnosis" 08/01/2017 Patient was seen today for psychiatric reevaluation, case was discussed with nurse in charge. Documentation review. Patient was found sleeping, but easily arousable. Cooperative, calm, pleasant. However, mild to moderate psychomotor retardation/flat affect/poverty of speech noted. Patient reports that she has been doing much better in the last days," but I know so something is wrong with me in a one my psychiatric medication to be adjusted and be stabilized". Patient clarifies that she came from [place] to [place] to help her daughter with her grandkids "and I want to be able to do a good job and be in optimal conditions". Patient reports psychiatric history of depression and psychosis, multiple psychiatric hospitalizations, but denies suicidal attempts. She has been in multiple psychotropics, but she doesn't remember the names. She has been partially compliant with her medications in the past. She reports episodes of sharon auditory hallucinations and paranoia in the past, denies now. However at this moment patient reports depressed mood , anhedonia, frequent episodes of sadness and tears, intrusive thoughts of not being able to function in the society, decreased self esteem. Patient denies suicidal ideation, but express "I see myself going that way if I don't get better". Patient is fully oriented 3, no attention deficit, no fluctuation of consciousness. At this moment other than flat affect and mild poverty of speech the patient does not present any prominent symptomatology of catatonia. 08/02/2017 for psychiatric evaluation today patient reports feeling depressed. She says that her blood pressure has been very unsteady and she is very concerned about it, she said that she has been also presenting continues headache, stomach pain, and she is very concerned about medication side effects. Patient says that she knows that something is not okay with her and she needs psychiatric care. When she was asked about hearing voices or seeing things that illnesses, she says to ask these things to her daughter "she knows what is going wrong with me, but I don't know". Patient reports hopelessness, she report helplessness, she reports constant preoccupation about her underlying medical conditions and her health. During psychiatric evaluation patient becomes very labile, tearful, kind of disorganized. Try to get collateral information from her daughter Shyanne, , but she does not answer. Patient is oriented 3. Attention deficit, no gross cognitive impairment present. She denies suicidal and homicidal ideation, she denies visual and auditory hallucinations. No catatonic symptoms observed at this moment. Review of Systems Constitutional: COMPLAINS OF: Change in appetite, DENIES: Diaphoretic episodes , Fatigue, Fever, Weight gain, Weight loss, Chills, Dizziness, Night Sweats Endocrine: DENIES: Abnorml menstrual pattern, Heat/cold intolerance, Polydipsia , Polyuria, Polyphagia Eyes: DENIES: Blurred vision, Diplopia, Eye inflammation, Eye pain, Vision loss , Photosensitivity, Double Vision Respiratory: DENIES: Apneas, Cough, Snoring, Wheezing, Hemoptysis, Sputum production, Shortness of breath Cardiovascular: DENIES: Chest pain, Palpitations, Syncope, Dyspnea on Exertion , PND, Lower Extremity Edema, Orthopnea, Claudication Gastrointestinal: COMPLAINS OF: Abdominal pain, DENIES: Black stools, Bloody stools, Constipation, Diarrhea, Nausea, Vomiting, Difficulty Swallowing, Anorexia Musculoskeletal: DENIES: Joint pain, Muscle aches, Stiffness, Joint Swelling, Back pain, Neck pain Integumentary: DENIES: Abnormal pigmentation, Pruritus, Rash, Nail changes, Breast masses, Breast skin changes, Nipple discharge Hematologic/lymphatic: DENIES: Bruising, Lymphadenopathy Immunologic/allergic: DENIES: Eczema, Urticaria Neurologic: COMPLAINS OF: Headache, DENIES: Abnormal gait, Localized weakness, Paresthesias, Seizures, Speech Problems, Tremor, Poor Balance Psychiatric: COMPLAINS OF: Confusion, Depression, DENIES: Anxiety, Mood changes , Hallucinations, Agitation, Suicidal Ideation, Homicidal Ideation, Delusions Past Family Social History Coded Allergies: penicillin G (Verified Adverse Reaction, Mild, HOT AND VOMITS, 07/21/17) Active Scripts Clonidine (Clonidine) 0.1 Mg Tab, 0.1 MG PO Q12HR Y for SBP>180, DBP>95, #5 TAB 0 Refills Prov:Justa Estrada MD 07/07/17 Reported Medications Hydralazine HCl (Hydralazine HCl) 10 Mg Tablet, 10 MG PO TID 6/23/17 Discontinued Reported Medications Trazodone (Trazodone) 100 Mg Tablet, 100 MG PO HS for Control Depression, #30 TAB 0 Refills 07/21/17 Escitalopram (Escitalopram) 10 Mg Tab, 10 MG PO DAILY, #30 TAB 0 Refills 07/21/17 Current Medications Medications (Trade) Dose Ordered Sig/Azra Route Start Time Stop Time Status Last Admin (Ativan) 1 mg Q6H PRN PO 08/02/17 02:15 08/02/17 02:41 (Ativan Inj) 1 mg Q6H PRN IM 08/02/17 02:15 (Tylenol) 650 mg Q4H PRN PO 08/02/17 02:15 08/02/17 08:00 (Milk Of Magnesia Liq) 30 ml DAILY PRN PO 08/02/17 02:15 (Mag-Al Plus Susp Liq) 30 ml Q6H PRN PO 08/02/17 02:15 (Habitrol 21 Mg Patch.24 Hr) 1 patch DAILY T-DERMAL 08/02/17 09:00 Miscellaneous Information 1 HS T-DERMAL 08/02/17 21:00 (Ativan) 1 mg Q8H PO 08/02/17 06:00 08/02/17 07:59 (Lexapro) 20 mg DAILY PO 08/02/17 09:00 Future Hold (Fioricet 325-50-40) 1 tab Q6H PRN PO 08/02/17 02:15 08/02/17 12:06 (Zofran Odt) 4 mg Q6H PRN PO 08/02/17 02:15 08/02/17 09:16 (Zanaflex) 4 mg HS PO 08/02/17 21:00 (Protonix) 40 mg DAILY PO 08/02/17 09:00 08/02/17 08:00 (Motrin) 800 mg Q8H PRN PO 08/02/17 02:15 (Catapres) 0.1 mg Q12H PRN PO 08/02/17 02:15 08/02/17 02:41 (Trandate Inj) 10 mg Q6H PRN IV 08/02/17 02:15 (Lactulose Liq) 30 ml Q24H PRN PO 08/02/17 02:15 (Dulcolax Supp) 10 mg Q24H PRN RECTAL 08/02/17 02:15 (Senokot) 17.2 mg Q12H PRN PO 08/02/17 02:15 Physical Exam Vital Signs Vital Signs Date Time Temp Pulse Resp B/P (MAP) Pulse Ox O2 Delivery O2 Flow Rate FiO2 08/02/17 06:09 98.4 66 15 127/71 (89) 97 I/O 08/02/17 08/02/17 08/03/17 08:00 16:00 00:00 Intake Total 240 ml Balance 240 ml Lab Results Reviewed Mental Status Examination Appearance woman, age appearing, [facility], tearful, superficially cooperative, Speech: Hesitant Orientation: x3 Memory: Unremarkable Thought Process: Loose Association, Thought Blocking Thought Content: Bizarre thinking Hallucination Type: None Attention and Concentration: Good Suicidal Ideation: No Previous Suicide Attempts: No Homicidal Ideation: No Previous Homicide Attempts: No Insight: Poor Judgment: Poor Affect: Irritable Affect if Inappropriate: Labile Mood: Sad Motor Activity: Normal gait Assessment & Plan Problem List: (1) 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 She denies perceptual disturbances, paranoia and delusions. However, patient seems to be at times disorganized and very somatically preoccupied. patient also reports symptoms of depression anxiety and frequent sadness, poor sleep, suicidal thoughts, anhedonia, decreased self esteem, intrusive thoughts about not being able to function in the society. Patient contracted for safety. Continue psychiatric hospitalization for stabilization and safety. Start Effexor 37.5 mg daily for depression, Seroquel 50 for psychosis. Since his support, motivation psycho education provided. intake worker intervention for collateral information, psychosocial assessment, group and individual psychotherapy. Assessment & Plan Estimated LOS: Kiran Arreguin MD Aug 02, 2017 14:58
[2017-08-02] MEDS: QUEtiapine FUMARATE 25 MG TAB PO SCH ×2 (15:35→21:40)
[2017-08-02] MEDS: VENLAFAXINE HCL XR 37.5 MG CAP PO SCH (15:36)
[2017-08-02 18:29] VITALS: BP 149/84; PULSE 90; RESP 17; TEMP 97.1; O2SAT 100
[2017-08-02] MEDS: REMOVE OLD NICOTINE PATCH T-DERMAL SCH (20:58)
[2017-08-03 05:33] VITALS: BP 150/82; PULSE 58; RESP 14; TEMP 98.1; O2SAT 95
[2017-08-03] MEDS: LORazepam 1 MG TAB PO SCH ×4 (05:58→23:50)
[2017-08-03] MEDS: PANTOPRAZOLE SOD 40 MG DELAYED RELEASE TAB PO SCH (08:42)
[2017-08-03] MEDS: VENLAFAXINE HCL XR 37.5 MG CAP PO SCH (08:42)
[2017-08-03] MEDS: QUEtiapine FUMARATE 25 MG TAB PO SCH ×2 (08:42→21:32)
[2017-08-03] MEDS: NICOTINE 21 MG/24 HR PATCH T-DERMAL SCH (09:00)
[2017-08-03] MEDS ORDERED: cloNIDine HCL 0.1 MG TAB PO PRN (09:15)
--- NOTE | 2017-08-03 10:26 | HHI.PR ---
Subjective History of Present Illness Patient c/o mass in both axilla RN on duty was present in room both axilla and breast examined no mass found. no acute issue. Review of Systems Constitutional Constitutional: Fatigue Psychiatric Psychiatric: Anxiety, Depression Vitals/Results Vital Signs Vital Signs Date Time Temp Pulse Resp B/P (MAP) Pulse Ox O2 Delivery O2 Flow Rate FiO2 08/03/17 05:33 98.1 58 14 150/82 (104) 95 08/02/17 18:29 97.1 90 17 149/84 (105) 100 Physical Exam General General Appearance: Well Developed, Well Nourished, No Acute Distress, Comfortable Eyes Eye Exam: Pupils Equal, Pupils Reactive, Sclera White, Extraocular Movement Intact Throat Throat Exam: Oral Mucosa [place] & Moist, Oral Pharynx Normal Neck Neck Exam: Neck Supple, Trachea Midline Pulmonary Resp Exam: Clear Bilaterally, Breath Sounds Equal, No Distress Cardiology CV Exam: Regular, Normal Sinus Rhythm Chest/Breast Chest/Breast Exam: Symmetry Chest/Breast Remarks normal breast and axilla examination. Gastrointestinal/Abdomen GI Exam: Soft, Non-Tender, Bowel Sounds Present Musculoskeletal MS Exam: Joints Intact, Normal Gait, Normal Tone, Good Strength Integumentary Skin Exam: Clear, Warm, Dry, Intact Extremeties Extremities Exam: No Edema Neurologic Neuro Exam: Alert, Awake, Oriented, Speech Clear, Moving All Extremities, No Focal Deficits Psychiatric Psych Exam: Appropriate Responses PUD Prophylasis PUD Prophylaxis: Protonix Assessment/Plan Assessment/Plan ASSESSMENT/PLAN 1. This is a 57-year female who was admitted with psych unit status post catatonia which was resolved. 2. History of anxiety. The patient is on Ativan 1 mg p.o. q.8 h 3. History of schizophrenia, Seroquel 25 mg p.o. b.i.d. 4. History of depression. The patient is on Effexor 37.5 mg p.o. daily. 5. History of hypertension. Continue with hydralazine 10 mg p.o. t.i.d. and 20 and 0.1 mg p.o. b.i.d. we will monitor blood pressure. 6. DVT prophylaxis, the patient is walking. 7. GI prophylaxis Protonix 40 mg p.o. daily. 8. We are going to manage the patient on a daily basis and make recommendation on a daily basis nexus. 9. Check CBC and CMP in the morning. Discussed Condition with: Patient Tony Junior MD Aug 03, 2017 10:25
[2017-08-03] MEDS: ACETAMINOPHEN 325 MG TAB PO PRN (10:41)
--- NOTE | 2017-08-03 12:54 | MB ---
cc: GEOFF WHATLEY MD DATE OF CONSULTATION 08/02/2017 DATE OF ADMISSION 08/01/2017 REASON FOR CONSULTATION Medical management. HISTORY OF PRESENT ILLNESS This is a 57-year-old female. She is my office patient who was admitted on July 21 to [facility] for catatonia seen by neurology and psychiatry. An EEG was done shows minimal encephalopathy. Psychiatry has seen the patient and recommended an inpatient psych admission. So the patient is transferred on 08/01/2017 to the Psych unit and psych consulted me for the medical management. The patient has a history of hypertension. The patient denies any symptoms at the time of examination. She has a history of history of schizophrenia, mental illness and a history of anxiety, depression, hypertension, fibromyalgia, low back pain, in the past, catatonia was resolved with Ativan IV and the patient was awake, alert, and oriented. Before that, the patient was totally obtunded and now the patient is in the psych arias and has no complaints. Other than that, nothing significant. PAST MEDICAL/SURGICAL HISTORY As dictated above. SOCIAL HISTORY Denies smoking, drinking or taking any drugs. Lives at home. FAMILY HISTORY Nothing significant. ALLERGIES PENICILLIN-G MEDICATIONS Include: 1. Clonidine 0.1 mg p.o. twice a day 2. Trazodone 100 mg at bedtime 3. Citalopram 10 mg p.o. daily 4. Hydralazine 10 mg p.o. t.i.d. REVIEW OF SYSTEMS Positive for anxiety, depression, and schizophrenia. PHYSICAL EXAMINATION This is a 57-year female sitting on the bed not in acute distress. JOSE Bañuelos was present in the room when I examine the patient on 08/02/2017. VITAL SIGNS: Temperature is 98.1, heart rate 58, respiration 14, blood pressure 150/88, O2 saturation 95% room air. HEENT: Normocephalic, atraumatic. EOMI. PERRLA. Oral mucosa moist. NECK: Supple. No visible thyromegaly or neck mass. Trachea is central. CARDIOVASCULAR: Regular rate and rhythm. Respirations are clear to auscultation bilaterally. ABDOMEN: Soft, nontender. Bowel sounds. EXTREMITIES: No cyanosis or clubbing. Full range of motion of all extremities. NEUROLOGIC: Awake, alert, and oriented x4. No focal deficits. SKIN: Warm and dry. PSYCH: The patient is cooperative. Mood and affect is normal. LABORATORY DATA Include WBC count 3.9 low, hemoglobin 13 low, hematocrit 33.9 low, lymphoid 46 high. BMP is totally unremarkable except for GFR 57 low, calcium 8.2 low, iron 44 low. LFTs are normal. Ammonia is 19, total protein 6.2, albumin 3.2, folate greater than 20, T4 is 1.80. TSH is 3.79. The patient had a SCAR positive with an optic titer of 1:40 ratio. SCAR pattern is diffuse. RPR nonreactive. The patient advised need to follow up with conference coordinator as an outpatient. CT of the brain was done 07/21/2017 and shows negative for fracture dislocation. Nothing acute. ASSESSMENT/PLAN 1. This is a 57-year female who was admitted with psych unit status post catatonia which was resolved. 2. History of anxiety. The patient is on Ativan 1 mg p.o. q.8 h 3. History of schizophrenia, Seroquel 25 mg p.o. b.i.d. 4. History of depression. The patient is on Effexor 37.5 mg p.o. daily. 5. History of hypertension. Continue with hydralazine 10 mg p.o. t.i.d. and 20 and 0.1 mg p.o. b.i.d. we will monitor blood pressure. 6. DVT prophylaxis, the patient is walking. 7. GI prophylaxis Protonix 40 mg p.o. daily. 8. We are going to manage the patient on a daily basis and make recommendation on a daily basis nexus. 9. Check CBC and CMP in the morning. Geoff Whatley MD EA/SYLVIE /10:18 AM /12:30 PM
[2017-08-03] MEDS: hydrALAZINE HCL 10 MG TAB PO SCH ×2 (13:00→18:00)
--- NOTE | 2017-08-03 13:35 | HHI.PYPN ---
Subjective Remarks Patient was seen today for psychiatric reevaluation, patient is found walking in the [place], she says that she is exercising, she states that by moving in the unit she is looking to raise her mood. She reports that she continued to feel depressed, episodically confused, amotivated, with sensation of worthlessness, but she denies suicidal ideation and homicidal ideation. She denies visual and auditory hallucinations. Continues to be somatically preoccupied about her blood pressure, lower back pain, headache, stomachache, but she was able to be reassured. At the moment of this evaluation no symptoms of acute catatonia are observed. Patient has been compliant with medications, no significant side effects. Oriented 3, no fluctuation of consciousness, no gross cognitive impairment present. Review of Systems Gastrointestinal: COMPLAINS OF: Abdominal pain Musculoskeletal: COMPLAINS OF: Back pain Psychiatric: COMPLAINS OF: Confusion Objective Alert: Yes [place]: Person, Place, Date, Situation Mood: Depressed Affect: Restricted, Flat Memory Intact: Immediate, Recent, Remote Hallucinations: Other (no hallucinations) Delusions: No Delusion Type: Other (not elicited) Suicidal: Ideation (no SI) Homicidal: Ideation (no HI) Insight/Judgment Poor Vitals/IOs Vital Signs Date Time Temp Pulse Resp B/P (MAP) Pulse Ox O2 Delivery O2 Flow Rate FiO2 08/03/17 05:33 98.1 58 14 150/82 (104) 95 Assessment & Plan Problem List: (1) Catatonia ICD Codes: F06.1 - Catatonic disorder due to known physiological condition Status: Acute Assessment & Plan: Patient does not show symptoms of catatonia at this moment. We will titrate down Ativan to 1 mg every 12 hours and would monitor close symptoms of catatonia. Patient continues to report symptoms of moderate to severe depression. We will increase Effexor to 75 mg. Extensive support, motivation and psychoeducation provided. (2) History of schizophrenia ICD Codes: Z86.59 - Personal history of other mental and behavioral disorders Status: Chronic (3) Adjustment disorder with depressed mood ICD Codes: F43.21 - Adjustment disorder with depressed mood Assessment & Plan Estimated LOS: days Justification for Cont. Inpt. Patient continues to show symptoms of depression, confusion, internal occupation , she does to continue her psychiatric hospitalization for stabilization. Kiran Bobby MD Aug 03, 2017 13:35
--- NOTE | 2017-08-03 14:46 | EKG ---
Date Performed: 08/03/2017 Time Performed: 13:45:01 PTAGE: 57 years EKG: Sinus rhythm NORMAL ECG No significant change from prior electrocardiogram. PREVIOUS TRACING : 07/22/2017 17.13 DOCTOR: Jeff Eastman Interpretating Date/Time 08/03/2017 14:44:09
[2017-08-03 17:34] VITALS: BP 165/87; PULSE 81; RESP 16; TEMP 98.5; O2SAT 95
[2017-08-03] MEDS: REMOVE OLD NICOTINE PATCH T-DERMAL SCH (21:00)
[2017-08-03 23:30] VITALS: BP 119/87
[2017-08-03] MEDS: ACETAMIN 325 MG/BUTALBITAL 50 MG/CAFFEINE 40 MG TAB PO PRN (23:55)
[2017-08-04 06:37] VITALS: BP 151/78; PULSE 68; RESP 17; TEMP 98; O2SAT 98
[2017-08-04] MEDS: NICOTINE 21 MG/24 HR PATCH T-DERMAL SCH (09:00)
[2017-08-04] MEDS: hydrALAZINE HCL 10 MG TAB PO SCH ×3 (09:09→18:16)
[2017-08-04] MEDS: PANTOPRAZOLE SOD 40 MG DELAYED RELEASE TAB PO SCH (09:09)
[2017-08-04] MEDS: VENLAFAXINE HCL XR 37.5 MG CAP PO SCH (09:09)
[2017-08-04] MEDS: QUEtiapine FUMARATE 25 MG TAB PO SCH ×2 (09:09→21:42)
[2017-08-04] MEDS: LORazepam 1 MG TAB PO SCH ×2 (09:09→21:42)
[2017-08-04] MEDS: SENNOSIDES 8.6 MG TAB PO PRN (09:49)
--- NOTE | 2017-08-04 11:34 | HHI.PR ---
Subjective History of Present Illness Patient c/o mass in both axilla RN on duty was present in room both axilla and breast examined no mass found. no acute issue. Review of Systems Constitutional Constitutional: Fatigue Psychiatric Psychiatric: Anxiety, Depression Vitals/Results Vital Signs Vital Signs Date Time Temp Pulse Resp B/P (MAP) Pulse Ox O2 Delivery O2 Flow Rate FiO2 08/04/17 06:37 98.0 68 17 151/78 (102) 98 08/03/17 23:30 119/87 (98) 08/03/17 17:34 98.5 81 16 165/87 (113) 95 Physical Exam General General Appearance: Well Developed, Well Nourished, No Acute Distress, Comfortable Eyes Eye Exam: Pupils Equal, Pupils Reactive, Sclera White, Extraocular Movement Intact Throat Throat Exam: Oral Mucosa [place] & Moist, Oral Pharynx Normal Neck Neck Exam: Neck Supple, Trachea Midline Pulmonary Resp Exam: Clear Bilaterally, Breath Sounds Equal, No Distress Cardiology CV Exam: Regular, Normal Sinus Rhythm Chest/Breast Chest/Breast Exam: Symmetry Chest/Breast Remarks normal breast and axilla examination. Gastrointestinal/Abdomen GI Exam: Soft, Non-Tender, Bowel Sounds Present Musculoskeletal MS Exam: Joints Intact, Normal Gait, Normal Tone, Good Strength Integumentary Skin Exam: Clear, Warm, Dry, Intact Extremeties Extremities Exam: No Edema Neurologic Neuro Exam: Alert, Awake, Oriented, Speech Clear, Moving All Extremities, No Focal Deficits Psychiatric Psych Exam: Appropriate Responses PUD Prophylasis PUD Prophylaxis: Protonix Assessment/Plan Assessment/Plan ASSESSMENT/PLAN 1. This is a 57-year female who was admitted with psych unit status post catatonia which was resolved. 2. History of anxiety. The patient is on Ativan 1 mg p.o. q.8 h 3. History of schizophrenia, Seroquel 25 mg p.o. b.i.d. 4. History of depression. The patient is on Effexor 37.5 mg p.o. daily. 5. History of hypertension. Continue with hydralazine 10 mg p.o. t.i.d. and 20 and 0.1 mg p.o. b.i.d. we will monitor blood pressure. 6. DVT prophylaxis, the patient is walking. 7. GI prophylaxis Protonix 40 mg p.o. daily. 8. We are going to manage the patient on a daily basis and make recommendation on a daily basis nexus. 9. Check CBC and CMP in the morning. Discussed Condition with: Patient Tony Junior MD Aug 04, 2017 11:34
[2017-08-04 13:48] VITALS: BP 155/92; PULSE 77
[2017-08-04 13:49] LABS: AUTOMATED NEUTROPHIL # 2.6 TH/MM3 (1.8-7.7); BASOPHIL % 0.6 % (0.0-2.0); EOSINOPHIL % 0.9 % (0.0-4.0); HEMO FLAGS DIFF FINAL; LYMPH % 32.6 % (9.0-44.0); LYMPHOCYTE # 1.4 TH/MM3 (1.0-4.8); MEAN CELL VOLUME 91.1 FL (80.0-100.0); MEAN CORPUSCULAR HEMOGLOBIN 30.6 PG (27.0-34.0); MEAN CORPUSCULAR HGB CONC 33.6 % (32.0-36.0); MONO % 5.9 % (0.0-8.0); PLATELET COUNT 173 TH/MM3 (150-450); RED BLOOD COUNT 4.17 MIL/MM3 (4.00-5.30); RED CELL DISTRIBUTION WIDTH 13.1 % (11.6-17.2); WHITE BLOOD COUNT 4.2 TH/MM3 (4.0-11.0)
[2017-08-04 14:10] LABS: ALT (GPT) 27 U/L (10-53); ANION GAP 5 MEQ/L (5-15); AST (GOT) 21 U/L (15-37); BICARBONATE 29.1 MEQ/L (21.0-32.0); BLOOD UREA NITROGEN 16 MG/DL (7-18); CHLORIDE 104 MEQ/L (98-107); GLOMERULAR FILTRATION RATE 60 ML/MIN (>89); POTASSIUM 3.9 MEQ/L (3.5-5.1); SODIUM (NA) 138 MEQ/L (136-145)
[2017-08-04 14:12] LABS: ALKALINE PHOSPHATASE 93 U/L (45-117); TOTAL BILIRUBIN ADULT 0.3 MG/DL (0.2-1.0)
[2017-08-04 16:00] VITALS: BP 171/99; PULSE 16; RESP 16; TEMP 97.4; O2SAT 96
[2017-08-04] MEDS: ACETAMIN 325 MG/BUTALBITAL 50 MG/CAFFEINE 40 MG TAB PO PRN (16:23)
--- NOTE | 2017-08-04 17:27 | HHI.PYPN ---
Subjective Remarks Patient was seen and case discussed with nursing. Patient is concerned about medication for sleep. Remains somatically preoccupied. Somewhat intrusive and concerned about the care of other patients. Insight remains poor. Denies psychotic symptoms Objective Alert: Yes [place]: Person, Place, Date, Situation Mood: Depressed Affect: Restricted Memory Intact: Immediate, Recent, Remote Hallucinations: Other (no hallucinations) Delusions: No Delusion Type: Other (not elicited) Suicidal: Ideation (no SI) Homicidal: Ideation (no HI) Insight/Judgment Poor Labs Test 08/04/17 12:02 White Blood Count 4.2 TH/MM3 Red Blood Count 4.17 MIL/MM3 Hemoglobin 12.8 GM/DL Hematocrit 38.0 % Mean Corpuscular Volume 91.1 FL Mean Corpuscular Hemoglobin 30.6 PG Mean Corpuscular Hemoglobin Concent 33.6 % Red Cell Distribution Width 13.1 % Platelet Count 173 TH/MM3 Mean Platelet Volume 7.2 FL Neutrophils (%) (Auto) 60.0 % Lymphocytes (%) (Auto) 32.6 % Monocytes (%) (Auto) 5.9 % Eosinophils (%) (Auto) 0.9 % Basophils (%) (Auto) 0.6 % Neutrophils # (Auto) 2.6 TH/MM3 Lymphocytes # (Auto) 1.4 TH/MM3 Monocytes # (Auto) 0.2 TH/MM3 Eosinophils # (Auto) 0.0 TH/MM3 Basophils # (Auto) 0.0 TH/MM3 CBC Comment DIFF FINAL Differential Comment Blood Urea Nitrogen 16 MG/DL Creatinine 0.96 MG/DL Random Glucose 79 MG/DL Total Protein 7.7 GM/DL Albumin 4.2 GM/DL Calcium Level 8.9 MG/DL Alkaline Phosphatase 93 U/L Aspartate Amino Transf (AST/SGOT) 21 U/L Alanine Aminotransferase (ALT/SGPT) 27 U/L Total Bilirubin 0.3 MG/DL Sodium Level 138 MEQ/L Potassium Level 3.9 MEQ/L Chloride Level 104 MEQ/L Carbon Dioxide Level 29.1 MEQ/L Anion Gap 5 MEQ/L Estimat Glomerular Filtration Rate 60 ML/MIN Vitals/IOs Vital Signs Date Time Temp Pulse Resp B/P (MAP) Pulse Ox O2 Delivery O2 Flow Rate FiO2 08/04/17 13:48 77 155/92 (113) 08/04/17 06:37 98.0 17 98 Assessment & Plan Problem List: (1) Catatonia ICD Codes: F06.1 - Catatonic disorder due to known physiological condition Status: Acute (2) History of schizophrenia ICD Codes: Z86.59 - Personal history of other mental and behavioral disorders Status: Chronic (3) Adjustment disorder with depressed mood ICD Codes: F43.21 - Adjustment disorder with depressed mood Assessment & Plan Change second dose of Seroquel to nighttime and increase to 50 mg Justification for Cont. Inpt. Patient would decompensate in a less restrictive setting Woody Jauregui DO Aug 04, 2017 17:27
[2017-08-04 18:00] VITALS: BP 171/99; PULSE 68; RESP 16; TEMP 97.4; O2SAT 96
[2017-08-04] MEDS: ACETAMINOPHEN 325 MG TAB PO PRN (20:41)
[2017-08-04] MEDS: REMOVE OLD NICOTINE PATCH T-DERMAL SCH (21:00)
[2017-08-05] MEDS: ACETAMIN 325 MG/BUTALBITAL 50 MG/CAFFEINE 40 MG TAB PO PRN (04:52)
[2017-08-05 06:13] VITALS: BP 136/80; PULSE 79; RESP 18; TEMP 97.7; O2SAT 96
[2017-08-05 08:01] LABS: AUTOMATED NEUTROPHIL # 2.1 TH/MM3 (1.8-7.7); BASOPHIL % 0.6 % (0.0-2.0); EOSINOPHIL # 0.1 TH/MM3 (0-0.4); EOSINOPHIL % 1.8 % (0.0-4.0); HEMATOCRIT 35.9 % (35.0-46.0); HEMO FLAGS DIFF FINAL; LYMPH % 32.7 % (9.0-44.0); LYMPHOCYTE # 1.2 TH/MM3 (1.0-4.8); MEAN CELL VOLUME 92.2 FL (80.0-100.0); MEAN CORPUSCULAR HEMOGLOBIN 31.3 PG (27.0-34.0); MEAN CORPUSCULAR HGB CONC 33.9 % (32.0-36.0); MONO % 7.2 % (0.0-8.0); NEUT % 57.7 % (16.0-70.0); PLATELET COUNT 154 TH/MM3 (150-450); RED CELL DISTRIBUTION WIDTH 13.6 % (11.6-17.2); WHITE BLOOD COUNT 3.6 TH/MM3 (4.0-11.0)
[2017-08-05 08:19] LABS: ANION GAP 7 MEQ/L (5-15); AST (GOT) 18 U/L (15-37); BICARBONATE 24.7 MEQ/L (21.0-32.0); BLOOD UREA NITROGEN 13 MG/DL (7-18); CHLORIDE 107 MEQ/L (98-107); GLOMERULAR FILTRATION RATE 61 ML/MIN (>89); POTASSIUM 3.4 MEQ/L (3.5-5.1); SODIUM (NA) 139 MEQ/L (136-145)
[2017-08-05 08:21] LABS: ALKALINE PHOSPHATASE 83 U/L (45-117); ALT (GPT) 20 U/L (10-53); TOTAL BILIRUBIN ADULT 0.2 MG/DL (0.2-1.0)
[2017-08-05] MEDS: LORazepam 1 MG TAB PO SCH ×2 (08:25→21:37)
[2017-08-05] MEDS: VENLAFAXINE HCL XR 37.5 MG CAP PO SCH (08:25)
[2017-08-05] MEDS: PANTOPRAZOLE SOD 40 MG DELAYED RELEASE TAB PO SCH (08:25)
[2017-08-05] MEDS: QUEtiapine FUMARATE 25 MG TAB PO SCH ×2 (08:25→21:37)
[2017-08-05] MEDS: hydrALAZINE HCL 10 MG TAB PO SCH ×3 (08:25→17:10)
[2017-08-05] MEDS: NICOTINE 21 MG/24 HR PATCH T-DERMAL SCH (08:51)
--- NOTE | 2017-08-05 12:06 | HHI.PR ---
Subjective History of Present Illness Patient was in eating area was eating lunch..c/o pain in joints. High BP. Review of Systems Constitutional Constitutional: Fatigue Psychiatric Psychiatric: Anxiety, Depression Vitals/Results Vital Signs Vital Signs Date Time Temp Pulse Resp B/P (MAP) Pulse Ox O2 Delivery O2 Flow Rate FiO2 08/05/17 06:13 97.7 79 18 136/80 (98) 96 08/04/17 18:00 97.4 68 16 171/99 (123) 96 08/04/17 16:00 97.4 16 16 171/99 (123) 96 08/04/17 13:48 77 155/92 (113) CBC/BMP: 08/05/17 0712 08/05/17 0712 Lab Results Laboratory Tests Test 08/05/17 07:12 White Blood Count 3.6 TH/MM3 Red Blood Count 3.90 MIL/MM3 Hemoglobin 12.2 GM/DL Hematocrit 35.9 % Mean Corpuscular Volume 92.2 FL Mean Corpuscular Hemoglobin 31.3 PG Mean Corpuscular Hemoglobin Concent 33.9 % Red Cell Distribution Width 13.6 % Platelet Count 154 TH/MM3 Mean Platelet Volume 7.1 FL Neutrophils (%) (Auto) 57.7 % Lymphocytes (%) (Auto) 32.7 % Monocytes (%) (Auto) 7.2 % Eosinophils (%) (Auto) 1.8 % Basophils (%) (Auto) 0.6 % Neutrophils # (Auto) 2.1 TH/MM3 Lymphocytes # (Auto) 1.2 TH/MM3 Monocytes # (Auto) 0.3 TH/MM3 Eosinophils # (Auto) 0.1 TH/MM3 Basophils # (Auto) 0.0 TH/MM3 CBC Comment DIFF FINAL Differential Comment Blood Urea Nitrogen 13 MG/DL Creatinine 0.94 MG/DL Random Glucose 88 MG/DL Total Protein 6.6 GM/DL Albumin 3.5 GM/DL Calcium Level 8.4 MG/DL Alkaline Phosphatase 83 U/L Aspartate Amino Transf (AST/SGOT) 18 U/L Alanine Aminotransferase (ALT/SGPT) 20 U/L Total Bilirubin 0.2 MG/DL Sodium Level 139 MEQ/L Potassium Level 3.4 MEQ/L Chloride Level 107 MEQ/L Carbon Dioxide Level 24.7 MEQ/L Anion Gap 7 MEQ/L Estimat Glomerular Filtration Rate 61 ML/MIN Physical Exam General General Appearance: Well Developed, Well Nourished, No Acute Distress, Comfortable Eyes Eye Exam: Sclera White, Extraocular Movement Intact Throat Throat Exam: Oral Mucosa [place] & Moist, Oral Pharynx Normal Neck Neck Exam: Neck Supple, Trachea Midline Pulmonary Resp Exam: Clear Bilaterally, Breath Sounds Equal, No Distress Cardiology CV Exam: Regular, Normal Sinus Rhythm Chest/Breast Chest/Breast Exam: Symmetry Gastrointestinal/Abdomen GI Exam: Soft, Non-Tender, Bowel Sounds Present Musculoskeletal MS Exam: Joints Intact, Normal Gait, Normal Tone, Good Strength Integumentary Skin Exam: Clear, Warm, Dry, Intact Extremeties Extremities Exam: No Edema Neurologic Neuro Exam: Alert, Awake, Oriented, Speech Clear, Moving All Extremities, No Focal Deficits Psychiatric Psych Exam: Appropriate Responses PUD Prophylasis PUD Prophylaxis: Protonix Assessment/Plan Assessment/Plan ASSESSMENT/PLAN 1. This is a 57-year female who was admitted with psych unit status post catatonia which was resolved. 2. History of anxiety. The patient is on Ativan 1 mg p.o. q.8 h 3. History of schizophrenia, Seroquel 25 mg p.o. b.i.d. 4. History of depression. The patient is on Effexor 37.5 mg p.o. daily. 5. History of hypertension. Continue with hydralazine 10 mg p.o. t.i.d. and Increased Clonidine 0.1 mg p.o. TID. + PRN we will monitor blood pressure. 6. DVT prophylaxis, the patient is walking. 7. GI prophylaxis Protonix 40 mg p.o. daily. 8. Osteoarthritis on Tylenol. We are going to manage the patient on a daily basis and make recommendation on a daily basis nexus. Check CBC and CMP in the morning. Discussed Condition with: Patient Tony Junior MD Aug 05, 2017 12:06
[2017-08-05] MEDS ORDERED: ACETAMINOPHEN 500 MG CPLT PO PRN (12:15)
[2017-08-05] MEDS: SENNOSIDES 8.6 MG TAB PO PRN (12:31)
[2017-08-05] MEDS ORDERED: cloNIDine HCL 0.1 MG TAB PO PRN (14:15)
[2017-08-05 14:25] VITALS: BP 168/74; PULSE 84
[2017-08-05] MEDS: cloNIDine HCL 0.1 MG TAB PO SCH ×2 (14:27→21:38)
--- NOTE | 2017-08-05 15:53 | HHI.PYPN ---
Subjective Remarks Patient was seen and case discussed with nursing. Patient is pleasant and cooperative with exam. Behaving well on the unit. Describes her mood today is "confused today." Has not had any visitors or phone calls. She is anxious about her exact diagnosis and what transpired before her admission. Denies auditory visual hallucinations. No psychotic symptoms elicited Objective Alert: Yes [place]: Person, Place, Date, Situation Mood: Anxious Affect: Appropriate Memory Intact: Immediate, Recent, Remote Hallucinations: Other (no hallucinations) Delusions: No Delusion Type: Other (not elicited) Suicidal: Ideation (no SI) Homicidal: Ideation (no HI) Insight/Judgment Poor Labs Test 08/05/17 07:12 White Blood Count 3.6 TH/MM3 Red Blood Count 3.90 MIL/MM3 Hemoglobin 12.2 GM/DL Hematocrit 35.9 % Mean Corpuscular Volume 92.2 FL Mean Corpuscular Hemoglobin 31.3 PG Mean Corpuscular Hemoglobin Concent 33.9 % Red Cell Distribution Width 13.6 % Platelet Count 154 TH/MM3 Mean Platelet Volume 7.1 FL Neutrophils (%) (Auto) 57.7 % Lymphocytes (%) (Auto) 32.7 % Monocytes (%) (Auto) 7.2 % Eosinophils (%) (Auto) 1.8 % Basophils (%) (Auto) 0.6 % Neutrophils # (Auto) 2.1 TH/MM3 Lymphocytes # (Auto) 1.2 TH/MM3 Monocytes # (Auto) 0.3 TH/MM3 Eosinophils # (Auto) 0.1 TH/MM3 Basophils # (Auto) 0.0 TH/MM3 CBC Comment DIFF FINAL Differential Comment Blood Urea Nitrogen 13 MG/DL Creatinine 0.94 MG/DL Random Glucose 88 MG/DL Total Protein 6.6 GM/DL Albumin 3.5 GM/DL Calcium Level 8.4 MG/DL Alkaline Phosphatase 83 U/L Aspartate Amino Transf (AST/SGOT) 18 U/L Alanine Aminotransferase (ALT/SGPT) 20 U/L Total Bilirubin 0.2 MG/DL Sodium Level 139 MEQ/L Potassium Level 3.4 MEQ/L Chloride Level 107 MEQ/L Carbon Dioxide Level 24.7 MEQ/L Anion Gap 7 MEQ/L Estimat Glomerular Filtration Rate 61 ML/MIN Vitals/IOs Vital Signs Date Time Temp Pulse Resp B/P (MAP) Pulse Ox O2 Delivery O2 Flow Rate FiO2 08/05/17 14:25 84 168/74 (105) 08/05/17 06:13 97.7 18 96 Assessment & Plan Problem List: (1) Catatonia ICD Codes: F06.1 - Catatonic disorder due to known physiological condition Status: Acute (2) History of schizophrenia ICD Codes: Z86.59 - Personal history of other mental and behavioral disorders Status: Chronic (3) Adjustment disorder with depressed mood ICD Codes: F43.21 - Adjustment disorder with depressed mood Assessment & Plan Continue current treatment plan Justification for Cont. Inpt. Patient would decompensate in a less restrictive setting Woody Jauregui DO Aug 05, 2017 15:53
[2017-08-05] MEDS: ACETAMINOPHEN 325 MG TAB PO PRN (23:00)
[2017-08-06] MEDS: cloNIDine HCL 0.1 MG TAB PO SCH ×3 (06:08→22:23)
[2017-08-06 06:36] VITALS: BP 145/70; PULSE 52; RESP 16; TEMP 98.6; O2SAT 95
[2017-08-06] MEDS: VENLAFAXINE HCL XR 37.5 MG CAP PO SCH (08:46)
[2017-08-06] MEDS: LORazepam 1 MG TAB PO SCH ×2 (08:46→22:23)
[2017-08-06] MEDS: hydrALAZINE HCL 10 MG TAB PO SCH ×3 (08:46→18:00)
[2017-08-06] MEDS: PANTOPRAZOLE SOD 40 MG DELAYED RELEASE TAB PO SCH (08:46)
[2017-08-06] MEDS: QUEtiapine FUMARATE 25 MG TAB PO SCH ×2 (08:47→22:23)
--- NOTE | 2017-08-06 09:58 | HHI.PR ---
Subjective History of Present Illness Patient feel better low potassium will replace High BP. better now. Review of Systems Constitutional Constitutional: Fatigue Psychiatric Psychiatric: Anxiety, Depression Vitals/Results Vital Signs Vital Signs Date Time Temp Pulse Resp B/P (MAP) Pulse Ox O2 Delivery O2 Flow Rate FiO2 08/06/17 06:36 98.6 52 16 145/70 (95) 95 08/05/17 14:25 84 168/74 (105) CBC/BMP: 08/05/17 0712 08/05/17 0712 Physical Exam General General Appearance: Well Developed, Well Nourished, No Acute Distress, Comfortable Eyes Eye Exam: Sclera White, Extraocular Movement Intact Throat Throat Exam: Oral Mucosa [place] & Moist, Oral Pharynx Normal Neck Neck Exam: Neck Supple, Trachea Midline Pulmonary Resp Exam: Clear Bilaterally, Breath Sounds Equal, No Distress Cardiology CV Exam: Regular, Normal Sinus Rhythm Chest/Breast Chest/Breast Exam: Symmetry Gastrointestinal/Abdomen GI Exam: Soft, Non-Tender, Bowel Sounds Present Musculoskeletal MS Exam: Joints Intact, Normal Gait, Normal Tone, Good Strength Integumentary Skin Exam: Clear, Warm, Dry, Intact Extremeties Extremities Exam: No Edema Neurologic Neuro Exam: Alert, Awake, Oriented, Speech Clear, Moving All Extremities, No Focal Deficits Psychiatric Psych Exam: Appropriate Responses PUD Prophylasis PUD Prophylaxis: Protonix Assessment/Plan Assessment/Plan ASSESSMENT/PLAN 1. This is a 57-year female who was admitted with psych unit status post catatonia which was resolved. 2. History of anxiety. The patient is on Ativan 1 mg p.o. q.8 h 3. History of schizophrenia, Seroquel 25 mg p.o. b.i.d. 4. History of depression. The patient is on Effexor 37.5 mg p.o. daily. 5. History of hypertension. Continue with hydralazine 10 mg p.o. t.i.d. and Increased Clonidine 0.1 mg p.o. TID. + PRN we will monitor blood pressure. better now 6. DVT prophylaxis, the patient is walking. 7. GI prophylaxis Protonix 40 mg p.o. daily. 8. Osteoarthritis on Tylenol. Hypokalemia will replace and monitor. We are going to manage the patient on a daily basis and make recommendation on a daily basis nexus. Check CBC and CMP in the morning. Discussed Condition with: Patient Tony Junior MD Aug 06, 2017 09:58
[2017-08-06] MEDS ORDERED: POTASSIUM CHLORIDE 10 MEQ CONTROLLED RELEASE TAB PO ONE (10:00)
[2017-08-06] MEDS: SENNOSIDES 8.6 MG TAB PO PRN (14:16)
[2017-08-06] MEDS: IBUPROFEN 800 MG TAB PO PRN (15:16)
--- NOTE | 2017-08-06 15:18 | HHI.PYPN ---
Subjective Remarks Patient was seen and case discussed with nursing. Patient says she was anxious and crying this morning. Not sleeping well. Remains preoccupied with diagnosis. Continues to deny psychotic symptoms Objective Alert: Yes [place]: Person, Place, Date, Situation Mood: Anxious Affect: Labile Memory Intact: Immediate, Recent, Remote Hallucinations: Other (no hallucinations) Delusions: No Delusion Type: Other (not elicited) Suicidal: Ideation (no SI) Homicidal: Ideation (no HI) Insight/Judgment Poor Vitals/IOs Vital Signs Date Time Temp Pulse Resp B/P (MAP) Pulse Ox O2 Delivery O2 Flow Rate FiO2 08/06/17 06:36 98.6 52 16 145/70 (95 95 Assessment & Plan Problem List: (1) Catatonia ICD Codes: F06.1 - Catatonic disorder due to known physiological condition Status: Acute (2) History of schizophrenia ICD Codes: Z86.59 - Personal history of other mental and behavioral disorders Status: Chronic (3) Adjustment disorder with depressed mood ICD Codes: F43.21 - Adjustment disorder with depressed mood Assessment & Plan Add when necessary Vistaril for sleep or anxiety Justification for Cont. Inpt. Patient would decompensate in a less restrictive setting Woody Jauregui DO Aug 06, 2017 15:18
[2017-08-06 17:40] VITALS: BP 131/80; PULSE 55; RESP 17; TEMP 98.8; O2SAT 98
[2017-08-07] MEDS: hydrOXYzine PAMOATE 25 MG CAP PO PRN ×2 (00:28→22:53)
[2017-08-07] MEDS: cloNIDine HCL 0.1 MG TAB PO SCH ×3 (06:19→22:16)
[2017-08-07 06:20] VITALS: BP 126/62; PULSE 65; RESP 18; TEMP 97.7; O2SAT 97
[2017-08-07] MEDS: hydrALAZINE HCL 10 MG TAB PO SCH ×3 (09:00→17:06)
[2017-08-07] MEDS: PANTOPRAZOLE SOD 40 MG DELAYED RELEASE TAB PO SCH (09:01)
[2017-08-07] MEDS: VENLAFAXINE HCL XR 37.5 MG CAP PO SCH ×2 (09:01→17:45)
[2017-08-07] MEDS: LORazepam 1 MG TAB PO SCH ×2 (09:01→22:16)
[2017-08-07] MEDS: QUEtiapine FUMARATE 25 MG TAB PO SCH ×2 (09:02→22:16)
[2017-08-07] MEDS: IBUPROFEN 800 MG TAB PO PRN (09:24)
[2017-08-07 09:41] LABS: AUTOMATED NEUTROPHIL # 2.1 TH/MM3 (1.8-7.7); BASOPHIL % 0.6 % (0.0-2.0); EOSINOPHIL # 0.1 TH/MM3 (0-0.4); EOSINOPHIL % 1.7 % (0.0-4.0); HEMATOCRIT 36.6 % (35.0-46.0); HEMO FLAGS DIFF FINAL; LYMPH % 39.9 % (9.0-44.0); LYMPHOCYTE # 1.7 TH/MM3 (1.0-4.8); MEAN CELL VOLUME 91.2 FL (80.0-100.0); MEAN CORPUSCULAR HEMOGLOBIN 31.1 PG (27.0-34.0); MEAN CORPUSCULAR HGB CONC 34.1 % (32.0-36.0); MONO % 7.1 % (0.0-8.0); NEUT % 50.7 % (16.0-70.0); PLATELET COUNT 168 TH/MM3 (150-450); RED BLOOD COUNT 4.01 MIL/MM3 (4.00-5.30); RED CELL DISTRIBUTION WIDTH 13.7 % (11.6-17.2); WHITE BLOOD COUNT 4.2 TH/MM3 (4.0-11.0)
[2017-08-07 10:01] LABS: ANION GAP 6 MEQ/L (5-15); AST (GOT) 12 U/L (15-37); BLOOD UREA NITROGEN 20 MG/DL (7-18); CHLORIDE 107 MEQ/L (98-107); GLOMERULAR FILTRATION RATE 56 ML/MIN (>89); POTASSIUM 4.1 MEQ/L (3.5-5.1); SODIUM (NA) 139 MEQ/L (136-145)
[2017-08-07 10:07] LABS: ALKALINE PHOSPHATASE 85 U/L (45-117); ALT (GPT) 21 U/L (10-53); TOTAL BILIRUBIN ADULT 0.3 MG/DL (0.2-1.0)
--- NOTE | 2017-08-07 13:12 | HHI.PR ---
Subjective History of Present Illness Patient feel better low potassium resolved High BP. better now. Review of Systems Constitutional Constitutional: Fatigue Psychiatric Psychiatric: Anxiety, Depression Vitals/Results Vital Signs Vital Signs Date Time Temp Pulse Resp B/P (MAP) Pulse Ox O2 Delivery O2 Flow Rate FiO2 08/07/17 06:20 97.7 65 18 126/62 (83) 97 08/06/17 17:40 98.8 55 17 131/80 (97) 98 CBC/BMP: 08/07/17 0804 08/07/17 0804 Lab Results Laboratory Tests Test 08/07/17 08:04 White Blood Count 4.2 TH/MM3 Red Blood Count 4.01 MIL/MM3 Hemoglobin 12.5 GM/DL Hematocrit 36.6 % Mean Corpuscular Volume 91.2 FL Mean Corpuscular Hemoglobin 31.1 PG Mean Corpuscular Hemoglobin Concent 34.1 % Red Cell Distribution Width 13.7 % Platelet Count 168 TH/MM3 Mean Platelet Volume 7.6 FL Neutrophils (%) (Auto) 50.7 % Lymphocytes (%) (Auto) 39.9 % Monocytes (%) (Auto) 7.1 % Eosinophils (%) (Auto) 1.7 % Basophils (%) (Auto) 0.6 % Neutrophils # (Auto) 2.1 TH/MM3 Lymphocytes # (Auto) 1.7 TH/MM3 Monocytes # (Auto) 0.3 TH/MM3 Eosinophils # (Auto) 0.1 TH/MM3 Basophils # (Auto) 0.0 TH/MM3 CBC Comment DIFF FINAL Differential Comment Blood Urea Nitrogen 20 MG/DL Creatinine 1.01 MG/DL Random Glucose 98 MG/DL Total Protein 6.6 GM/DL Albumin 3.7 GM/DL Calcium Level 8.5 MG/DL Alkaline Phosphatase 85 U/L Aspartate Amino Transf (AST/SGOT) 12 U/L Alanine Aminotransferase (ALT/SGPT) 21 U/L Total Bilirubin 0.3 MG/DL Sodium Level 139 MEQ/L Potassium Level 4.1 MEQ/L Chloride Level 107 MEQ/L Carbon Dioxide Level 26.0 MEQ/L Anion Gap 6 MEQ/L Estimat Glomerular Filtration Rate 56 ML/MIN Physical Exam General General Appearance: Well Developed, Well Nourished, No Acute Distress, Comfortable Eyes Eye Exam: Sclera White, Extraocular Movement Intact Throat Throat Exam: Oral Mucosa [place] & Moist, Oral Pharynx Normal Neck Neck Exam: Neck Supple, Trachea Midline Pulmonary Resp Exam: Clear Bilaterally, Breath Sounds Equal, No Distress Cardiology CV Exam: Regular, Normal Sinus Rhythm Chest/Breast Chest/Breast Exam: Symmetry Gastrointestinal/Abdomen GI Exam: Soft, Non-Tender, Bowel Sounds Present Musculoskeletal MS Exam: Joints Intact, Normal Gait, Normal Tone, Good Strength Integumentary Skin Exam: Clear, Warm, Dry, Intact Extremeties Extremities Exam: No Edema Neurologic Neuro Exam: Alert, Awake, Oriented, Speech Clear, Moving All Extremities, No Focal Deficits Psychiatric Psych Exam: Appropriate Responses PUD Prophylasis PUD Prophylaxis: Protonix Assessment/Plan Assessment/Plan ASSESSMENT/PLAN 1. This is a 57-year female who was admitted with psych unit status post catatonia which was resolved. 2. History of anxiety. The patient is on Ativan 1 mg p.o. q.8 h 3. History of schizophrenia, Seroquel 25 mg p.o. b.i.d. 4. History of depression. The patient is on Effexor 37.5 mg p.o. daily. 5. History of hypertension. Continue with hydralazine 10 mg p.o. t.i.d. and Increased Clonidine 0.1 mg p.o. TID. + PRN we will monitor blood pressure. better now 6. DVT prophylaxis, the patient is walking. 7. GI prophylaxis Protonix 40 mg p.o. daily. 8. Osteoarthritis on Tylenol. 9. Hypokalemia resolved. We are going to manage the patient on a daily basis and make recommendation on a daily basis nexus. Check CBC and CMP in the morning. Discussed Condition with: Patient Tony Junior MD Aug 07, 2017 13:12
[2017-08-07] MEDS ORDERED: IBUPROFEN 600 MG TAB PO PRN (13:15)
[2017-08-07] MEDS: SENNOSIDES 8.6 MG TAB PO PRN (15:16)
[2017-08-07 15:24] VITALS: BP 139/90
[2017-08-07 17:36] VITALS: BP 132/73; PULSE 55; RESP 18; TEMP 98.2; O2SAT 96
[2017-08-07 20:30] VITALS: BP 158/83; PULSE 55
--- NOTE | 2017-08-07 21:29 | HHI.PYPN ---
Subjective Remarks Patient seen for follow up; chart reviewed. Patient found walking in the hallways but able to engage in interview. Patient states that she had been feeling confused with the change in doctors, rooms and medications. Patient states that she has been concerned with her diagnosis and that her daughter as well. She mentions that her sleep had been "broken up" and her mood has been "up and down"; current denies any SI. Patient noted to be confused about how she has been feeling in terms of her mood but appears not to have been consistent. She states wanting to get better but does not feels she is there yet. Review of Systems Except as stated in HPI: all other systems reviewed are Neg Objective Alert: Yes [place]: Person, Place, Date, Situation Mood: Anxious (at times) Affect: Labile Memory Intact: Immediate, Recent, Remote Hallucinations: Other (no hallucinations) Delusions: No Delusion Type: Other (not elicited) Suicidal: Ideation (no SI) Homicidal: Ideation (no HI) Insight/Judgment Limited insight, fair impulse control and judgment. Labs labs reviewed. Test 08/07/17 08:04 White Blood Count 4.2 TH/MM3 Red Blood Count 4.01 MIL/MM3 Hemoglobin 12.5 GM/DL Hematocrit 36.6 % Mean Corpuscular Volume 91.2 FL Mean Corpuscular Hemoglobin 31.1 PG Mean Corpuscular Hemoglobin Concent 34.1 % Red Cell Distribution Width 13.7 % Platelet Count 168 TH/MM3 Mean Platelet Volume 7.6 FL Neutrophils (%) (Auto) 50.7 % Lymphocytes (%) (Auto) 39.9 % Monocytes (%) (Auto) 7.1 % Eosinophils (%) (Auto) 1.7 % Basophils (%) (Auto) 0.6 % Neutrophils # (Auto) 2.1 TH/MM3 Lymphocytes # (Auto) 1.7 TH/MM3 Monocytes # (Auto) 0.3 TH/MM3 Eosinophils # (Auto) 0.1 TH/MM3 Basophils # (Auto) 0.0 TH/MM3 CBC Comment DIFF FINAL Differential Comment Blood Urea Nitrogen 20 MG/DL Creatinine 1.01 MG/DL Random Glucose 98 MG/DL Total Protein 6.6 GM/DL Albumin 3.7 GM/DL Calcium Level 8.5 MG/DL Alkaline Phosphatase 85 U/L Aspartate Amino Transf (AST/SGOT) 12 U/L Alanine Aminotransferase (ALT/SGPT) 21 U/L Total Bilirubin 0.3 MG/DL Sodium Level 139 MEQ/L Potassium Level 4.1 MEQ/L Chloride Level 107 MEQ/L Carbon Dioxide Level 26.0 MEQ/L Anion Gap 6 MEQ/L Estimat Glomerular Filtration Rate 56 ML/MIN Vitals/IOs Vital Signs Date Time Temp Pulse Resp B/P (MAP) Pulse Ox O2 Delivery O2 Flow Rate FiO2 08/07/17 20:30 55 158/83 (108) 08/07/17 17:36 98.2 18 96 Assessment & Plan Problem List: (1) Catatonia ICD Codes: F06.1 - Catatonic disorder due to known physiological condition Status: Acute (2) History of schizophrenia ICD Codes: Z86.59 - Personal history of other mental and behavioral disorders Status: Chronic (3) Adjustment disorder with depressed mood ICD Codes: F43.21 - Adjustment disorder with depressed mood Assessment & Plan Patient continues with depressive mood and perseverative on diagnosis. Will increase venlafaxine to 75mg PO am and 37.5mg PO pm; continue quetiapine 25mg PO am/ 50mg PO HS. Monitor for medication response and possible ADRs. Discharge planning in progress. Justification for Cont. Inpt. At risk for further decompensation if at lower level of care. Calderon Thorpe MD Aug 07, 2017 21:29
[2017-08-08] MEDS: LORazepam 1 MG TAB PO PRN (02:21)
[2017-08-08 06:19] VITALS: BP 135/74; PULSE 58; RESP 18; TEMP 98.5; O2SAT 96
[2017-08-08] MEDS: cloNIDine HCL 0.1 MG TAB PO SCH ×3 (06:31→20:56)
[2017-08-08] MEDS: VENLAFAXINE HCL XR 37.5 MG CAP PO SCH ×2 (08:33→16:24)
[2017-08-08] MEDS: PANTOPRAZOLE SOD 40 MG DELAYED RELEASE TAB PO SCH (08:33)
[2017-08-08] MEDS: QUEtiapine FUMARATE 25 MG TAB PO SCH ×2 (08:34→20:55)
[2017-08-08] MEDS: LORazepam 1 MG TAB PO SCH ×2 (08:34→20:54)
[2017-08-08] MEDS: hydrALAZINE HCL 10 MG TAB PO SCH ×3 (08:34→17:09)
[2017-08-08] MEDS: ACETAMINOPHEN 325 MG TAB PO PRN (09:48)
--- NOTE | 2017-08-08 10:07 | HHI.PR ---
Subjective History of Present Illness Patient feel better low potassium resolved High BP. better now. have hip pain on ibuprofen d/w RN on duty Review of Systems Constitutional Constitutional: Fatigue Psychiatric Psychiatric: Anxiety, Depression Vitals/Results Vital Signs Vital Signs Date Time Temp Pulse Resp B/P (MAP) Pulse Ox O2 Delivery O2 Flow Rate FiO2 08/08/17 06:19 98.5 58 18 135/74 (94) 96 08/07/17 20:30 55 158/83 (108) 08/07/17 17:36 98.2 55 18 132/73 (92) 96 08/07/17 15:24 139/90 (106) CBC/BMP: 08/07/17 0804 08/07/17 0804 Physical Exam General General Appearance: Well Developed, Well Nourished, No Acute Distress, Comfortable Eyes Eye Exam: Sclera White, Extraocular Movement Intact Throat Throat Exam: Oral Mucosa [place] & Moist, Oral Pharynx Normal Neck Neck Exam: Neck Supple, Trachea Midline Pulmonary Resp Exam: Clear Bilaterally, Breath Sounds Equal, No Distress Cardiology CV Exam: Regular, Normal Sinus Rhythm Chest/Breast Chest/Breast Exam: Symmetry Gastrointestinal/Abdomen GI Exam: Soft, Non-Tender, Bowel Sounds Present Musculoskeletal MS Exam: Joints Intact, Normal Gait, Normal Tone, Good Strength Integumentary Skin Exam: Clear, Warm, Dry, Intact Extremeties Extremities Exam: No Edema Neurologic Neuro Exam: Alert, Awake, Oriented, Speech Clear, Moving All Extremities, No Focal Deficits Psychiatric Psych Exam: Appropriate Responses PUD Prophylasis PUD Prophylaxis: Protonix Assessment/Plan Assessment/Plan ASSESSMENT/PLAN 1. This is a 57-year female who was admitted with psych unit status post catatonia which was resolved. 2. History of anxiety. The patient is on Ativan 1 mg p.o. q.8 h 3. History of schizophrenia, Seroquel 25 mg p.o. b.i.d. 4. History of depression. The patient is on Effexor 37.5 mg p.o. daily. 5. History of hypertension. Continue with hydralazine 10 mg p.o. t.i.d. and Increased Clonidine 0.1 mg p.o. TID. + PRN we will monitor blood pressure. better now 6. DVT prophylaxis, the patient is walking. 7. GI prophylaxis Protonix 40 mg p.o. daily. 8. Osteoarthritis on Tylenol. 9. Hypokalemia resolved. We are going to manage the patient on a daily basis and make recommendation on a daily basis nexus. Check CBC and CMP in the morning. Discussed Condition with: Patient Tony Junior MD Aug 08, 2017 10:07
[2017-08-08] MEDS: hydrOXYzine PAMOATE 25 MG CAP PO PRN (13:10)
[2017-08-08] MEDS: SENNOSIDES 8.6 MG TAB PO PRN (16:41)
--- NOTE | 2017-08-08 17:38 | HHI.PYPN ---
Subjective Remarks Patient seen for follow-up, chart reviewed. Patient states that she had slept better but was getting up at night. She mentions her mood being "off and on", no problems with eating or drinking, tolerating medications well, denies any ADRs. She statest hat she had spoken to her daughter and felt supported by her. Patient states that she does not feel ready to go home yet. She reports feeling a bit more anxious lately. Review of Systems Except as stated in HPI: all other systems reviewed are Neg Objective Alert: Yes [place]: Person, Place, Date, Situation Mood: Anxious (at times) Affect: Labile (less so today) Memory Intact: Immediate, Recent, Remote Hallucinations: Other (no hallucinations) Delusions: No Delusion Type: Other (not elicited) Suicidal: Ideation (no SI) Homicidal: Ideation (no HI) Insight/Judgment limited insight, fair impulse control and judgement Vitals/IOs Vital Signs Date Time Temp Pulse Resp B/P (MAP) Pulse Ox O2 Delivery O2 Flow Rate FiO2 08/08/17 06:19 98.5 58 18 135/74 (94) 96 Assessment & Plan Problem List: (1) Catatonia ICD Codes: F06.1 - Catatonic disorder due to known physiological condition Status: Acute (2) History of schizophrenia ICD Codes: Z86.59 - Personal history of other mental and behavioral disorders Status: Chronic (3) Adjustment disorder with depressed mood ICD Codes: F43.21 - Adjustment disorder with depressed mood Assessment & Plan Patient continues to have labile mood and some improvement in sleep. Will increase quetiapine to 75mg PO HS, continue quetiapine 25mg PO daily, continue venlafaxine 112.5 mg PO daily in divided doses. Continue to monitor mood and behavior. Discharge planning in progress. Justification for Cont. Inpt. At risk for further decompensation if at lower level of care. Calderon Thorpe MD Aug 08, 2017 17:38
[2017-08-08 18:13] VITALS: BP 144/82
[2017-08-08 18:48] VITALS: BP 144/82; PULSE 58; RESP 17; TEMP 97.6; O2SAT 97
[2017-08-09] MEDS: hydrOXYzine PAMOATE 25 MG CAP PO PRN ×2 (00:41→14:52)
[2017-08-09] MEDS: cloNIDine HCL 0.1 MG TAB PO SCH ×3 (05:54→22:31)
[2017-08-09 05:59] VITALS: BP 158/72; PULSE 50; RESP 18; TEMP 98.7
[2017-08-09 08:30] LABS: AUTOMATED NEUTROPHIL # 1.9 TH/MM3 (1.8-7.7); BASOPHIL % 0.7 % (0.0-2.0); EOSINOPHIL # 0.1 TH/MM3 (0-0.4); EOSINOPHIL % 1.8 % (0.0-4.0); HEMATOCRIT 35.6 % (35.0-46.0); HEMO FLAGS DIFF FINAL; LYMPHOCYTE # 1.3 TH/MM3 (1.0-4.8); MEAN CORPUSCULAR HEMOGLOBIN 30.8 PG (27.0-34.0); MEAN CORPUSCULAR HGB CONC 33.9 % (32.0-36.0); MONO % 6.7 % (0.0-8.0); NEUT % 54.8 % (16.0-70.0); PLATELET COUNT 189 TH/MM3 (150-450); RED BLOOD COUNT 3.92 MIL/MM3 (4.00-5.30); RED CELL DISTRIBUTION WIDTH 13.4 % (11.6-17.2); WHITE BLOOD COUNT 3.5 TH/MM3 (4.0-11.0)
[2017-08-09] MEDS: VENLAFAXINE HCL XR 37.5 MG CAP PO SCH ×2 (08:46→16:00)
[2017-08-09] MEDS: hydrALAZINE HCL 10 MG TAB PO SCH ×3 (08:46→17:04)
[2017-08-09] MEDS: QUEtiapine FUMARATE 25 MG TAB PO SCH (08:47)
[2017-08-09] MEDS: PANTOPRAZOLE SOD 40 MG DELAYED RELEASE TAB PO SCH (08:47)
[2017-08-09] MEDS: LORazepam 1 MG TAB PO SCH ×2 (08:47→22:31)
[2017-08-09 09:04] LABS: AST (GOT) 11 U/L (15-37); BICARBONATE 27.3 MEQ/L (21.0-32.0); BLOOD UREA NITROGEN 16 MG/DL (7-18); GLOMERULAR FILTRATION RATE 65 ML/MIN (>89)
[2017-08-09 09:12] LABS: ALKALINE PHOSPHATASE 85 U/L (45-117); ALT (GPT) 20 U/L (10-53); TOTAL BILIRUBIN ADULT 0.3 MG/DL (0.2-1.0)
[2017-08-09 09:27] LABS: ANION GAP 7 MEQ/L (5-15); CHLORIDE 107 MEQ/L (98-107); POTASSIUM 3.8 MEQ/L (3.5-5.1); SODIUM (NA) 141 MEQ/L (136-145)
--- NOTE | 2017-08-09 11:08 | HHI.PR ---
Subjective History of Present Illness Patient c/o right hip pain and lower back pain check x- ray and start lortab 5/ 325 PO Every 6 hrs. High BP. better now. have hip pain on ibuprofen d/w RN on duty Review of Systems Constitutional Constitutional: Fatigue Psychiatric Psychiatric: Anxiety, Depression Vitals/Results Vital Signs Vital Signs Date Time Temp Pulse Resp B/P (MAP) Pulse Ox O2 Delivery O2 Flow Rate FiO2 08/09/17 05:59 98.7 50 18 158/72 (100) 08/08/17 18:48 97.6 58 17 144/82 (102) 97 08/08/17 18:13 144/82 (102) CBC/BMP: 08/09/17 0714 08/09/17 0714 Lab Results Laboratory Tests Test 08/09/17 07:14 White Blood Count 3.5 TH/MM3 Red Blood Count 3.92 MIL/MM3 Hemoglobin 12.1 GM/DL Hematocrit 35.6 % Mean Corpuscular Volume 91.0 FL Mean Corpuscular Hemoglobin 30.8 PG Mean Corpuscular Hemoglobin Concent 33.9 % Red Cell Distribution Width 13.4 % Platelet Count 189 TH/MM3 Mean Platelet Volume 6.9 FL Neutrophils (%) (Auto) 54.8 % Lymphocytes (%) (Auto) 36.0 % Monocytes (%) (Auto) 6.7 % Eosinophils (%) (Auto) 1.8 % Basophils (%) (Auto) 0.7 % Neutrophils # (Auto) 1.9 TH/MM3 Lymphocytes # (Auto) 1.3 TH/MM3 Monocytes # (Auto) 0.2 TH/MM3 Eosinophils # (Auto) 0.1 TH/MM3 Basophils # (Auto) 0.0 TH/MM3 CBC Comment DIFF FINAL Differential Comment Blood Urea Nitrogen 16 MG/DL Creatinine 0.89 MG/DL Random Glucose 90 MG/DL Total Protein 6.7 GM/DL Albumin 3.4 GM/DL Calcium Level 8.4 MG/DL Alkaline Phosphatase 85 U/L Aspartate Amino Transf (AST/SGOT) 11 U/L Alanine Aminotransferase (ALT/SGPT) 20 U/L Total Bilirubin 0.3 MG/DL Sodium Level 141 MEQ/L Potassium Level 3.8 MEQ/L Chloride Level 107 MEQ/L Carbon Dioxide Level 27.3 MEQ/L Anion Gap 7 MEQ/L Estimat Glomerular Filtration Rate 65 ML/MIN Physical Exam General General Appearance: Well Developed, Well Nourished, No Acute Distress, Comfortable Eyes Eye Exam: Sclera White, Extraocular Movement Intact Throat Throat Exam: Oral Mucosa [place] & Moist, Oral Pharynx Normal Neck Neck Exam: Neck Supple, Trachea Midline Pulmonary Resp Exam: Clear Bilaterally, Breath Sounds Equal, No Distress Cardiology CV Exam: Regular, Normal Sinus Rhythm Chest/Breast Chest/Breast Exam: Symmetry Gastrointestinal/Abdomen GI Exam: Soft, Non-Tender, Bowel Sounds Present Musculoskeletal MS Exam: Joints Intact, Normal Gait, Normal Tone, Good Strength Integumentary Skin Exam: Clear, Warm, Dry, Intact Extremeties Extremities Exam: No Edema Neurologic Neuro Exam: Alert, Awake, Oriented, Speech Clear, Moving All Extremities, No Focal Deficits Psychiatric Psych Exam: Appropriate Responses PUD Prophylasis PUD Prophylaxis: Protonix Assessment/Plan Assessment/Plan ASSESSMENT/PLAN 1. This is a 57-year female who was admitted with psych unit status post catatonia which was resolved. 2. History of anxiety. The patient is on Ativan 1 mg p.o. q.8 h 3. History of schizophrenia, Seroquel 25 mg p.o. b.i.d. 4. History of depression. The patient is on Effexor 37.5 mg p.o. daily. 5. History of hypertension. Continue with hydralazine 10 mg p.o. TID.. and Increased Clonidine 0.1 mg p.o. TID. + PRN we will monitor blood pressure. better now 6. DVT prophylaxis, the patient is walking. 7. GI prophylaxis Protonix 40 mg p.o. daily. 8. Osteoarthritis on Tylenol. 9. Hypokalemia resolved. 10. Right Hip pain and lower back pain check x-ray right hip and lower back start Lortab 5/325 PO Every 6 hrs PRN Pain. We are going to manage the patient on a daily basis and make recommendation on a daily basis nexus. Check CBC and CMP in the morning. Discussed Condition with: Patient Tony Junior MD Aug 09, 2017 10:43
--- NOTE | 2017-08-09 14:55 | RADRPT ---
EXAM DATE/TIME: 08/09/2017 14:08 [facility] COMPARISON: No previous studies available for comparison. INDICATIONS : Low back pain, no known trauma. MEDICAL HISTORY : None. SURGICAL HISTORY : None. ENCOUNTER: Initial ACUITY: 3 months PAIN SCORE: 8/10 LOCATION: Bilateral lumbar spine FINDINGS: Two view examination was performed. Slight levocurvature. No fracture. 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 The disc spaces are maintained. No spondylolisthesis. The pedicles are intact. Bony mineralization is normal. No fracture is identified. CONCLUSION: 1. Slight levocurvature. 2. Mild degenerative changes. Calderon Beck MD on August 09, 2017 at 14:54 Board Certified Radiologist. This report was verified electronically.
--- NOTE | 2017-08-09 14:56 | RADRPT ---
EXAM DATE/TIME: 08/09/2017 14:10 [facility] COMPARISON: No previous studies available for comparison. INDICATIONS : Right hip pain., no known trauma MEDICAL HISTORY : None. SURGICAL HISTORY : None. ENCOUNTER: Initial ACUITY: 3 months PAIN SCORE: 8/10 LOCATION: Right hip and pelvis FINDINGS: Examination of the right hip was performed with AP pelvis. The primary and secondary trabecular michael olayinka of the femoral neck is intact. The hip joint is of normal width without significant sclerosis or bony hypertrophy. The acetabulum is grossly intact. CONCLUSION: No acute fracture right hip. Calderon Beck MD on August 09, 2017 at 14:54 Board Certified Radiologist. This report was verified electronically.
[2017-08-09] MEDS: SENNOSIDES 8.6 MG TAB PO PRN (17:04)
--- NOTE | 2017-08-09 17:59 | HHI.PYPN ---
Subjective Remarks Patient seen for follow up; chart reviewed. Patient found walking on the unit, states she continues to feel "up and down". She mentions still not feeling ready to return back to her daughter and states that she plans on returning there. She continues to feel sad and depressed, feeling having low self-esteem , missing her mother in [place] and feeling stressed living with her daughter due to the "rulesof the house". She continues to have suicidal ideation, last time was yesterday. Review of Systems Except as stated in HPI: all other systems reviewed are Neg Objective Alert: Yes [place]: Person, Place, Date, Situation Mood: Anxious (at times), Depressed Affect: Labile (less so today) Memory Intact: Immediate, Recent, Remote Hallucinations: Other (no hallucinations) Delusions: No Delusion Type: Other (not elicited) Suicidal: Ideation (no SI) Homicidal: Ideation (no HI) Insight/Judgment fair insight, impulse control and judgment. Labs labs reviewed. Test 08/09/17 07:14 White Blood Count 3.5 TH/MM3 Red Blood Count 3.92 MIL/MM3 Hemoglobin 12.1 GM/DL Hematocrit 35.6 % Mean Corpuscular Volume 91.0 FL Mean Corpuscular Hemoglobin 30.8 PG Mean Corpuscular Hemoglobin Concent 33.9 % Red Cell Distribution Width 13.4 % Platelet Count 189 TH/MM3 Mean Platelet Volume 6.9 FL Neutrophils (%) (Auto) 54.8 % Lymphocytes (%) (Auto) 36.0 % Monocytes (%) (Auto) 6.7 % Eosinophils (%) (Auto) 1.8 % Basophils (%) (Auto) 0.7 % Neutrophils # (Auto) 1.9 TH/MM3 Lymphocytes # (Auto) 1.3 TH/MM3 Monocytes # (Auto) 0.2 TH/MM3 Eosinophils # (Auto) 0.1 TH/MM3 Basophils # (Auto) 0.0 TH/MM3 CBC Comment DIFF FINAL Differential Comment Blood Urea Nitrogen 16 MG/DL Creatinine 0.89 MG/DL Random Glucose 90 MG/DL Total Protein 6.7 GM/DL Albumin 3.4 GM/DL Calcium Level 8.4 MG/DL Alkaline Phosphatase 85 U/L Aspartate Amino Transf (AST/SGOT) 11 U/L Alanine Aminotransferase (ALT/SGPT) 20 U/L Total Bilirubin 0.3 MG/DL Sodium Level 141 MEQ/L Potassium Level 3.8 MEQ/L Chloride Level 107 MEQ/L Carbon Dioxide Level 27.3 MEQ/L Anion Gap 7 MEQ/L Estimat Glomerular Filtration Rate 65 ML/MIN Vitals/IOs Vital Signs Date Time Temp Pulse Resp B/P (MAP) Pulse Ox O2 Delivery O2 Flow Rate FiO2 08/09/17 05:59 98.7 50 18 158/72 (100) 08/08/17 18:48 97 Intake and Output 08/09/17 08/09/17 08/10/17 08:00 16:00 00:00 Intake Total 600 ml Balance 600 ml Assessment & Plan Problem List: (1) Catatonia ICD Codes: F06.1 - Catatonic disorder due to known physiological condition Status: Acute (2) History of schizophrenia ICD Codes: Z86.59 - Personal history of other mental and behavioral disorders Status: Chronic (3) Adjustment disorder with depressed mood ICD Codes: F43.21 - Adjustment disorder with depressed mood Assessment & Plan Patient continues with depressive symptoms along with suicidal ideations. Will increase quetiapine to 100mg PO HS. Discharge planning in progress. Justification for Cont. Inpt. At risk for further decompensation if at lower level of care. Calderon Thorpe MD Aug 09, 2017 17:59
[2017-08-09 18:11] VITALS: BP 140/80; PULSE 57; RESP 17; TEMP 99; O2SAT 96
[2017-08-09] MEDS ORDERED: QUEtiapine FUMARATE 25 MG TAB PO SCH (21:00)
[2017-08-09] MEDS: QUEtiapine FUMARATE 100 MG TAB PO SCH (22:31)
[2017-08-10] MEDS: hydrOXYzine PAMOATE 25 MG CAP PO PRN ×2 (00:42→14:49)
[2017-08-10 05:19] VITALS: BP 117/55; PULSE 50; RESP 17; TEMP 98.8; O2SAT 98
[2017-08-10] MEDS: cloNIDine HCL 0.1 MG TAB PO SCH ×3 (06:04→23:07)
[2017-08-10 08:11] VITALS: BP 157/85; PULSE 60; TEMP 97.7; O2SAT 95
[2017-08-10] MEDS: LORazepam 1 MG TAB PO SCH ×2 (09:11→23:07)
[2017-08-10] MEDS: QUEtiapine FUMARATE 25 MG TAB PO SCH (09:11)
[2017-08-10] MEDS: PANTOPRAZOLE SOD 40 MG DELAYED RELEASE TAB PO SCH (09:11)
[2017-08-10] MEDS: hydrALAZINE HCL 10 MG TAB PO SCH ×3 (09:11→17:31)
[2017-08-10] MEDS: VENLAFAXINE HCL XR 37.5 MG CAP PO SCH ×2 (09:11→16:00)
[2017-08-10 11:45] VITALS: BP 120/74
[2017-08-10] MEDS: SENNOSIDES 8.6 MG TAB PO PRN (14:49)
[2017-08-10] MEDS: ACETAMINOPHEN/HYDROcodone 325 MG/5 MG TAB PO PRN (14:49)
--- NOTE | 2017-08-10 16:48 | HHI.PYPN ---
Subjective Remarks Patient seen for follow up; chart reviewed. Patient found participating in activity group. Patient states that she has been feeling "ok" and mood has been "up and down". She reports sleeping well with no problem with appetite. She continues to be anxious about returning back to live with her daughter and requires encouragement to communicate more with her daughter about what stresses her living there. Review of Systems Except as stated in HPI: all other systems reviewed are Neg Objective Alert: Yes [place]: Person, Place, Date, Situation Mood: Anxious (at times), Depressed Affect: Labile (less so today) Memory Intact: Immediate, Recent, Remote Hallucinations: Other (no hallucinations) Delusions: No Delusion Type: Other (not elicited) Suicidal: Ideation (no SI) Homicidal: Ideation (no HI) Insight/Judgment Limited insight, impulse control and judgment Vitals/IOs Vital Signs Date Time Temp Pulse Resp B/P (MAP) Pulse Ox O2 Delivery O2 Flow Rate FiO2 08/10/17 11:45 120/74 (89) 08/10/17 08:11 97.7 60 95 08/10/17 05:19 17 Assessment & Plan Problem List: (1) Catatonia ICD Codes: F06.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 Patient encouraged to cope with her anxiety using relaxation techniques and coping strategies. Continue current treatment. Discharge planning in process. Justification for Cont. Inpt. At risk for further decompensation if at lower level of care. Calderon Thorpe MD Aug 10, 2017 16:48
--- NOTE | 2017-08-10 18:12 | HHI.PR ---
Subjective History of Present Illness Patient c/o right hip pain and lower back pain checked x- ray shows nothing acute..and on lortab 5/325 PO Every 6 hrs. + Ibuprofen. High BP. better now. consult physical therapy evaluation and treatment. Review of Systems Constitutional Constitutional: Fatigue Psychiatric Psychiatric: Anxiety, Depression Vitals/Results Vital Signs Vital Signs Date Time Temp Pulse Resp B/P (MAP) Pulse Ox O2 Delivery O2 Flow Rate FiO2 08/10/17 11:45 120/74 (89) 08/10/17 08:11 97.7 60 157/85 (109) 95 08/10/17 05:19 98.8 50 17 117/55 (75) 98 CBC/BMP: 08/09/17 0714 08/09/17 0714 Physical Exam General General Appearance: Well Developed, Well Nourished, No Acute Distress, Comfortable Eyes Eye Exam: Sclera White, Extraocular Movement Intact Throat Throat Exam: Oral Mucosa [place] & Moist, Oral Pharynx Normal Neck Neck Exam: Neck Supple, Trachea Midline Pulmonary Resp Exam: Clear Bilaterally, Breath Sounds Equal, No Distress Cardiology CV Exam: Regular, Normal Sinus Rhythm Chest/Breast Chest/Breast Exam: Symmetry Gastrointestinal/Abdomen GI Exam: Soft, Non-Tender, Bowel Sounds Present Musculoskeletal MS Exam: Joints Intact, Normal Gait, Normal Tone, Good Strength Integumentary Skin Exam: Clear, Warm, Dry, Intact Extremeties Extremities Exam: No Edema Neurologic Neuro Exam: Alert, Awake, Oriented, Speech Clear, Moving All Extremities, No Focal Deficits Psychiatric Psych Exam: Appropriate Responses PUD Prophylasis PUD Prophylaxis: Protonix Assessment/Plan Assessment/Plan ASSESSMENT/PLAN 1. This is a 57-year female who was admitted with psych unit status post catatonia which was resolved. 2. History of anxiety. The patient is on Ativan 1 mg p.o. q.8 h 3. History of schizophrenia, Seroquel 25 mg p.o. b.i.d. 4. History of depression. The patient is on Effexor 37.5 mg p.o. daily. 5. History of hypertension. Continue with hydralazine 10 mg p.o. TID.. and on Clonidine 0.1 mg p.o. TID. + PRN we will monitor blood pressure. better now 6. DVT prophylaxis, the patient is walking. 7. GI prophylaxis Protonix 40 mg p.o. daily. 8. Osteoarthritis on Tylenol. 9. Hypokalemia resolved. 10. Right Hip pain and lower back pain checked x-ray right hip and lower back shows nothing acute, on Lortab 5/325 PO Every 6 hrs PRN Pain.+ Ibuprofen Physical therapy evaluation and treatment. We are going to manage the patient on a daily basis and make recommendation on a daily basis nexus. Check CBC and CMP in the morning. Discussed Condition with: Patient Tony Junior MD Aug 10, 2017 18:12
[2017-08-10 18:23] VITALS: BP 140/81; PULSE 69; RESP 18; TEMP 98; O2SAT 96
[2017-08-10] MEDS: QUEtiapine FUMARATE 100 MG TAB PO SCH (23:07)
[2017-08-11] MEDS: hydrOXYzine PAMOATE 25 MG CAP PO PRN (01:51)
[2017-08-11] MEDS: cloNIDine HCL 0.1 MG TAB PO SCH ×3 (06:05→22:44)
[2017-08-11 06:24] VITALS: BP 135/75; PULSE 56; RESP 18; TEMP 98.6; O2SAT 97
[2017-08-11] MEDS: PANTOPRAZOLE SOD 40 MG DELAYED RELEASE TAB PO SCH (08:35)
[2017-08-11] MEDS: QUEtiapine FUMARATE 25 MG TAB PO SCH (08:36)
[2017-08-11] MEDS: LORazepam 1 MG TAB PO SCH ×2 (08:36→22:44)
[2017-08-11] MEDS: hydrALAZINE HCL 10 MG TAB PO SCH ×3 (08:36→16:30)
[2017-08-11] MEDS: VENLAFAXINE HCL XR 37.5 MG CAP PO SCH ×2 (08:38→16:00)
[2017-08-11] MEDS: ACETAMINOPHEN/HYDROcodone 325 MG/5 MG TAB PO PRN (09:26)
--- NOTE | 2017-08-11 10:44 | HHI.PR ---
Subjective History of Present Illness Patient c/o right hip pain and lower back pain checked x- ray shows nothing acute..and on lortab 5/325 PO Every 6 hrs. + Ibuprofen. High BP. better now. getting physical therapy Review of Systems Constitutional Constitutional: Fatigue Psychiatric Psychiatric: Anxiety, Depression Vitals/Results Vital Signs Vital Signs Date Time Temp Pulse Resp B/P (MAP) Pulse Ox O2 Delivery O2 Flow Rate FiO2 08/11/17 06:24 98.6 56 18 135/75 (95) 97 08/10/17 18:23 98.0 69 18 140/81 (100) 96 08/10/17 11:45 120/74 (89) CBC/BMP: 08/09/17 0714 08/09/17 0714 Physical Exam General General Appearance: Well Developed, Well Nourished, No Acute Distress, Comfortable Eyes Eye Exam: Sclera White, Extraocular Movement Intact Throat Throat Exam: Oral Mucosa [place] & Moist, Oral Pharynx Normal Neck Neck Exam: Neck Supple, Trachea Midline Pulmonary Resp Exam: Clear Bilaterally, Breath Sounds Equal, No Distress Cardiology CV Exam: Regular, Normal Sinus Rhythm Chest/Breast Chest/Breast Exam: Symmetry Gastrointestinal/Abdomen GI Exam: Soft, Non-Tender, Bowel Sounds Present Musculoskeletal MS Exam: Joints Intact, Normal Gait, Normal Tone, Good Strength Integumentary Skin Exam: Clear, Warm, Dry, Intact Extremeties Extremities Exam: No Edema Neurologic Neuro Exam: Alert, Awake, Oriented, Speech Clear, Moving All Extremities, No Focal Deficits Psychiatric Psych Exam: Appropriate Responses PUD Prophylasis PUD Prophylaxis: Protonix Assessment/Plan Assessment/Plan ASSESSMENT/PLAN 1. This is a 57-year female who was admitted with psych unit status post catatonia which was resolved. 2. History of anxiety. The patient is on Ativan 1 mg p.o. q.8 h 3. History of schizophrenia, Seroquel 25 mg p.o. b.i.d. 4. History of depression. The patient is on Effexor 37.5 mg p.o. daily. 5. History of hypertension. Continue with hydralazine 10 mg p.o. TID.. and on Clonidine 0.1 mg p.o. TID. + PRN we will monitor blood pressure. better now 6. DVT prophylaxis, the patient is walking. 7. GI prophylaxis Protonix 40 mg p.o. daily. 8. Osteoarthritis on Tylenol. 9. Hypokalemia resolved. 10. Right Hip pain and lower back pain checked x-ray right hip and lower back shows nothing acute, on Lortab 5/325 PO Every 6 hrs PRN Pain.+ Ibuprofen 11. Getting Physical therapy. We are going to manage the patient on a daily basis and make recommendation on a daily basis nexus. Check CBC and CMP in the morning. Tony Junior MD Aug 11, 2017 10:44
--- NOTE | 2017-08-11 14:12 | HHI.PYPN ---
Subjective Remarks Pt seen and discussed with staff. She has been denying and minimizing substance abuse per staff. She has been entitled and demanding on unit and engaging in splitting behaviors with staff and peers. She is very anxious and states that she is worried about relationship with her daughter. No SI/HI. Objective Alert: Yes [place]: Person, Place, Date, Situation Mood: Anxious, Depressed Affect: Restricted Memory Intact: Immediate, Recent, Remote Hallucinations: Other (no hallucinations) Delusions: No Delusion Type: Other (not elicited) Suicidal: Ideation (no SI) Homicidal: Ideation (no HI) Insight/Judgment poor Vitals/IOs Vital Signs Date Time Temp Pulse Resp B/P (MAP) Pulse Ox O2 Delivery O2 Flow Rate FiO2 08/11/17 06:24 98.6 56 18 135/75 (95) 97 Assessment & Plan Problem List: (1) Adjustment disorder with depressed mood ICD Codes: F43.21 - Adjustment disorder with depressed mood (2) Catatonia ICD Codes: F06.1 - Catatonic disorder due to known physiological condition Status: Resolved (3) History of schizophrenia ICD Codes: Z86.59 - Personal history of other mental and behavioral disorders Status: Chronic Assessment & Plan Continue current tx plan. Estimated LOS: days Justification for Cont. Inpt. risk of decompensation Laila Aviles MD Aug 11, 2017 14:12
[2017-08-11 16:00] VITALS: BP 140/80; PULSE 80; RESP 16
[2017-08-11 18:39] VITALS: BP 127/72; PULSE 82; RESP 18; TEMP 98.4; O2SAT 98
[2017-08-11] MEDS: QUEtiapine FUMARATE 100 MG TAB PO SCH (22:44)
[2017-08-12] MEDS: hydrOXYzine PAMOATE 25 MG CAP PO PRN ×2 (01:25→14:49)
[2017-08-12] MEDS: cloNIDine HCL 0.1 MG TAB PO SCH ×3 (05:47→22:00)
[2017-08-12] MEDS: ACETAMIN 325 MG/BUTALBITAL 50 MG/CAFFEINE 40 MG TAB PO PRN (06:00)
[2017-08-12 06:28] VITALS: BP 147/91; PULSE 60; RESP 18; TEMP 98.9; O2SAT 99
[2017-08-12] MEDS: ONDANSETRON ODT 4 MG TAB PO PRN (06:42)
[2017-08-12] MEDS: VENLAFAXINE HCL XR 37.5 MG CAP PO SCH ×2 (08:32→14:50)
[2017-08-12] MEDS: hydrALAZINE HCL 10 MG TAB PO SCH ×3 (08:32→16:40)
[2017-08-12] MEDS: QUEtiapine FUMARATE 25 MG TAB PO SCH (08:32)
[2017-08-12] MEDS: LORazepam 1 MG TAB PO SCH ×2 (08:32→21:00)
[2017-08-12] MEDS: ACETAMINOPHEN/HYDROcodone 325 MG/5 MG TAB PO PRN ×2 (08:34→23:09)
[2017-08-12] MEDS: PANTOPRAZOLE SOD 40 MG DELAYED RELEASE TAB PO SCH (08:34)
--- NOTE | 2017-08-12 09:51 | HHI.PR ---
Subjective History of Present Illness Patient c/o right hip pain and lower back pain checked x- ray shows nothing acute..and on lortab 5/325 PO Every 6 hrs. + Ibuprofen. High BP. better now. getting physical therapy d/w RN on duty in the room. Review of Systems Constitutional Constitutional: Fatigue Psychiatric Psychiatric: Anxiety, Depression Vitals/Results Vital Signs Vital Signs Date Time Temp Pulse Resp B/P (MAP) Pulse Ox O2 Delivery O2 Flow Rate FiO2 08/12/17 06:28 98.9 60 18 147/91 (109) 99 08/11/17 18:39 98.4 82 18 127/72 (90) 98 08/11/17 16:00 80 16 140/80 (100) CBC/BMP: 08/09/17 0714 08/09/17 0714 Physical Exam General General Appearance: Well Developed, Well Nourished, No Acute Distress, Comfortable Eyes Eye Exam: Sclera White, Extraocular Movement Intact Throat Throat Exam: Oral Mucosa [place] & Moist, Oral Pharynx Normal Neck Neck Exam: Neck Supple, Trachea Midline Pulmonary Resp Exam: Clear Bilaterally, Breath Sounds Equal, No Distress Cardiology CV Exam: Regular, Normal Sinus Rhythm Chest/Breast Chest/Breast Exam: Symmetry Gastrointestinal/Abdomen GI Exam: Soft, Non-Tender, Bowel Sounds Present Musculoskeletal MS Exam: Joints Intact, Normal Gait, Normal Tone, Good Strength Integumentary Skin Exam: Clear, Warm, Dry, Intact Extremeties Extremities Exam: No Edema Neurologic Neuro Exam: Alert, Awake, Oriented, Speech Clear, Moving All Extremities, No Focal Deficits Psychiatric Psych Exam: Appropriate Responses PUD Prophylasis PUD Prophylaxis: Protonix Assessment/Plan Assessment/Plan ASSESSMENT/PLAN 1. This is a 57-year female who was admitted with psych unit status post catatonia which was resolved. 2. History of anxiety. The patient is on Ativan 1 mg p.o. q.8 h 3. History of schizophrenia, Seroquel 25 mg p.o. b.i.d. 4. History of depression. The patient is on Effexor 37.5 mg p.o. daily. 5. History of hypertension. Continue with hydralazine 10 mg p.o. TID.. and on Clonidine 0.1 mg p.o. TID. + PRN we will monitor blood pressure. better now 6. DVT prophylaxis, the patient is walking. 7. GI prophylaxis Protonix 40 mg p.o. daily. 8. Osteoarthritis on Tylenol. 9. Hypokalemia resolved. 10. Right Hip pain and lower back pain checked x-ray right hip and lower back shows nothing acute, on Lortab 5/325 PO Every 6 hrs PRN Pain.+ Ibuprofen 11. Getting Physical therapy. We are going to manage the patient on a daily basis and make recommendation on a daily basis nexus. Check CBC and CMP in the morning. Discussed Condition with: Patient Tony Junior MD Aug 12, 2017 09:51
[2017-08-12 10:29] LABS: AUTOMATED NEUTROPHIL # 1.7 TH/MM3 (1.8-7.7); BASOPHIL % 0.6 % (0.0-2.0); EOSINOPHIL # 0.1 TH/MM3 (0-0.4); EOSINOPHIL % 1.9 % (0.0-4.0); HEMO FLAGS DIFF FINAL; LYMPH % 38.7 % (9.0-44.0); LYMPHOCYTE # 1.3 TH/MM3 (1.0-4.8); MEAN CELL VOLUME 90.7 FL (80.0-100.0); MEAN CORPUSCULAR HEMOGLOBIN 31.2 PG (27.0-34.0); MEAN CORPUSCULAR HGB CONC 34.4 % (32.0-36.0); MONO % 5.9 % (0.0-8.0); NEUT % 52.9 % (16.0-70.0); PLATELET COUNT 163 TH/MM3 (150-450); RED BLOOD COUNT 3.97 MIL/MM3 (4.00-5.30); RED CELL DISTRIBUTION WIDTH 13.3 % (11.6-17.2); WHITE BLOOD COUNT 3.3 TH/MM3 (4.0-11.0)
[2017-08-12 10:47] LABS: ANION GAP 7 MEQ/L (5-15); AST (GOT) 10 U/L (15-37); BICARBONATE 26.7 MEQ/L (21.0-32.0); BLOOD UREA NITROGEN 14 MG/DL (7-18); CHLORIDE 105 MEQ/L (98-107); GLOMERULAR FILTRATION RATE 59 ML/MIN (>89); SODIUM (NA) 139 MEQ/L (136-145)
[2017-08-12 10:52] LABS: ALKALINE PHOSPHATASE 89 U/L (45-117); ALT (GPT) 18 U/L (10-53); TOTAL BILIRUBIN ADULT 0.4 MG/DL (0.2-1.0)
[2017-08-12] MEDS: GABAPENTIN 100 MG CAP PO SCH ×2 (13:00→16:39)
--- NOTE | 2017-08-12 15:41 | HHI.PYPN ---
Subjective Remarks Pt seen and discussed with staff. Staff report that pt was intrusive and entitled last night. Today mood has been less anxious and she has been more engaged in unit activities. Less irritable today. SHe reports that she had a good visit with daughter but it was superficial. Relationship with daughter is source of stress. No SI/HI Objective Alert: Yes [employer]: Person, Place, Date, Situation Mood: Depressed Affect: Restricted Memory Intact: Immediate, Recent, Remote Hallucinations: Other (no hallucinations) Delusions: No Delusion Type: Other (not elicited) Suicidal: Ideation (no SI) Homicidal: Ideation (no HI) Insight/Judgment limited Labs Test 08/12/17 09:40 White Blood Count 3.3 TH/MM3 Red Blood Count 3.97 MIL/MM3 Hemoglobin 12.4 GM/DL Hematocrit 36.0 % Mean Corpuscular Volume 90.7 FL Mean Corpuscular Hemoglobin 31.2 PG Mean Corpuscular Hemoglobin Concent 34.4 % Red Cell Distribution Width 13.3 % Platelet Count 163 TH/MM3 Mean Platelet Volume 7.0 FL Neutrophils (%) (Auto) 52.9 % Lymphocytes (%) (Auto) 38.7 % Monocytes (%) (Auto) 5.9 % Eosinophils (%) (Auto) 1.9 % Basophils (%) (Auto) 0.6 % Neutrophils # (Auto) 1.7 TH/MM3 Lymphocytes # (Auto) 1.3 TH/MM3 Monocytes # (Auto) 0.2 TH/MM3 Eosinophils # (Auto) 0.1 TH/MM3 Basophils # (Auto) 0.0 TH/MM3 CBC Comment DIFF FINAL Differential Comment Blood Urea Nitrogen 14 MG/DL Creatinine 0.97 MG/DL Random Glucose 94 MG/DL Total Protein 6.5 GM/DL Albumin 3.5 GM/DL Calcium Level 8.6 MG/DL Alkaline Phosphatase 89 U/L Aspartate Amino Transf (AST/SGOT) 10 U/L Alanine Aminotransferase (ALT/SGPT) 18 U/L Total Bilirubin 0.4 MG/DL Sodium Level 139 MEQ/L Potassium Level 4.0 MEQ/L Chloride Level 105 MEQ/L Carbon Dioxide Level 26.7 MEQ/L Anion Gap 7 MEQ/L Estimat Glomerular Filtration Rate 59 ML/MIN Vitals/IOs Vital Signs Date Time Temp Pulse Resp B/P (MAP) Pulse Ox O2 Delivery O2 Flow Rate FiO2 08/12/17 06:28 98.9 60 18 147/91 (109) 99 Assessment & Plan Problem List: (1) Adjustment disorder with depressed mood ICD Codes: F43.21 - Adjustment disorder with depressed mood (2) Catatonia ICD Codes: F06.1 - Catatonic disorder due to known physiological condition Status: Resolved (3) History of schizophrenia ICD Codes: Z86.59 - Personal history of other mental and behavioral disorders Status: Chronic Assessment & Plan Continue current tx plan. Estimated LOS: days Justification for Cont. Inpt. risk od decompensation Laila Aviles MD Aug 12, 2017 15:41
[2017-08-12 18:12] VITALS: BP 126/82; PULSE 72
[2017-08-12] MEDS: QUEtiapine FUMARATE 100 MG TAB PO SCH (21:00)
[2017-08-13] MEDS: hydrOXYzine PAMOATE 25 MG CAP PO PRN ×2 (02:07→13:30)
[2017-08-13 04:41] VITALS: BP 148/76; PULSE 56; RESP 17; TEMP 97.7; O2SAT 94
[2017-08-13] MEDS: ACETAMINOPHEN/HYDROcodone 325 MG/5 MG TAB PO PRN (05:25)
[2017-08-13] MEDS: cloNIDine HCL 0.1 MG TAB PO SCH ×3 (06:00→22:00)
[2017-08-13] MEDS: ACETAMIN 325 MG/BUTALBITAL 50 MG/CAFFEINE 40 MG TAB PO PRN (06:41)
[2017-08-13] MEDS: PANTOPRAZOLE SOD 40 MG DELAYED RELEASE TAB PO SCH (08:39)
[2017-08-13] MEDS: GABAPENTIN 100 MG CAP PO SCH ×3 (08:39→18:00)
[2017-08-13] MEDS: hydrALAZINE HCL 10 MG TAB PO SCH ×3 (08:39→18:00)
[2017-08-13] MEDS: LORazepam 1 MG TAB PO SCH ×2 (08:40→21:00)
[2017-08-13] MEDS: VENLAFAXINE HCL XR 37.5 MG CAP PO SCH ×2 (08:40→16:00)
[2017-08-13] MEDS: QUEtiapine FUMARATE 25 MG TAB PO SCH (08:42)
--- NOTE | 2017-08-13 08:49 | HHI.PR ---
Subjective History of Present Illness Patient c/o right hip pain and lower back pain checked x- ray shows nothing acute..and on lortab 5/325 PO Every 6 hrs. + Ibuprofen. High BP. better now. getting physical therapy d/w RN on duty in the room. Low WBC Count will monitor. Review of Systems Constitutional Constitutional: Fatigue Psychiatric Psychiatric: Anxiety, Depression Vitals/Results Vital Signs Vital Signs Date Time Temp Pulse Resp B/P (MAP) Pulse Ox O2 Delivery O2 Flow Rate FiO2 08/13/17 04:41 97.7 56 17 148/76 (100) 94 08/12/17 18:12 72 126/82 (97) CBC/BMP: 08/12/17 0940 08/12/17 0940 Lab Results Laboratory Tests Test 08/12/17 09:40 White Blood Count 3.3 TH/MM3 Red Blood Count 3.97 MIL/MM3 Hemoglobin 12.4 GM/DL Hematocrit 36.0 % Mean Corpuscular Volume 90.7 FL Mean Corpuscular Hemoglobin 31.2 PG Mean Corpuscular Hemoglobin Concent 34.4 % Red Cell Distribution Width 13.3 % Platelet Count 163 TH/MM3 Mean Platelet Volume 7.0 FL Neutrophils (%) (Auto) 52.9 % Lymphocytes (%) (Auto) 38.7 % Monocytes (%) (Auto) 5.9 % Eosinophils (%) (Auto) 1.9 % Basophils (%) (Auto) 0.6 % Neutrophils # (Auto) 1.7 TH/MM3 Lymphocytes # (Auto) 1.3 TH/MM3 Monocytes # (Auto) 0.2 TH/MM3 Eosinophils # (Auto) 0.1 TH/MM3 Basophils # (Auto) 0.0 TH/MM3 CBC Comment DIFF FINAL Differential Comment Blood Urea Nitrogen 14 MG/DL Creatinine 0.97 MG/DL Random Glucose 94 MG/DL Total Protein 6.5 GM/DL Albumin 3.5 GM/DL Calcium Level 8.6 MG/DL Alkaline Phosphatase 89 U/L Aspartate Amino Transf (AST/SGOT) 10 U/L Alanine Aminotransferase (ALT/SGPT) 18 U/L Total Bilirubin 0.4 MG/DL Sodium Level 139 MEQ/L Potassium Level 4.0 MEQ/L Chloride Level 105 MEQ/L Carbon Dioxide Level 26.7 MEQ/L Anion Gap 7 MEQ/L Estimat Glomerular Filtration Rate 59 ML/MIN Physical Exam General General Appearance: Well Developed, Well Nourished, No Acute Distress, Comfortable Eyes Eye Exam: Sclera White, Extraocular Movement Intact Throat Throat Exam: Oral Mucosa [place] & Moist, Oral Pharynx Normal Neck Neck Exam: Neck Supple, Trachea Midline Pulmonary Resp Exam: Clear Bilaterally, Breath Sounds Equal, No Distress Cardiology CV Exam: Regular, Normal Sinus Rhythm Chest/Breast Chest/Breast Exam: Symmetry Gastrointestinal/Abdomen GI Exam: Soft, Non-Tender, Bowel Sounds Present Musculoskeletal MS Exam: Joints Intact, Normal Gait, Normal Tone, Good Strength Integumentary Skin Exam: Clear, Warm, Dry, Intact Extremeties Extremities Exam: No Edema Neurologic Neuro Exam: Alert, Awake, Oriented, Speech Clear, Moving All Extremities, No Focal Deficits Psychiatric Psych Exam: Appropriate Responses PUD Prophylasis PUD Prophylaxis: Protonix Assessment/Plan Assessment/Plan ASSESSMENT/PLAN 1. This is a 57-year female who was admitted with psych unit status post catatonia which was resolved. 2. History of anxiety. The patient is on Ativan 1 mg p.o. q.8 h 3. History of schizophrenia, Seroquel 25 mg p.o. b.i.d. 4. History of depression. The patient is on Effexor 37.5 mg p.o. daily. 5. History of hypertension. Continue with hydralazine 10 mg p.o. TID.. and on Clonidine 0.1 mg p.o. TID. + PRN we will monitor blood pressure. better now 6. DVT prophylaxis, the patient is walking. 7. GI prophylaxis Protonix 40 mg p.o. daily. 8. Osteoarthritis on Tylenol. 9. Hypokalemia resolved. 10. Right Hip pain and lower back pain checked x-ray right hip and lower back shows nothing acute, on Lortab 5/325 PO Every 6 hrs PRN Pain.+ Ibuprofen 11. Getting Physical therapy. 12. Low WBC Count will monitor. We are going to manage the patient on a daily basis and make recommendation on a daily basis nexus. Check CBC and CMP in the morning. Discussed Condition with: Patient Tony Junior MD Aug 13, 2017 08:49
[2017-08-13] MEDS: SENNOSIDES 8.6 MG TAB PO PRN (13:30)
--- NOTE | 2017-08-13 17:58 | HHI.PYPN ---
Subjective Remarks Patient seen for follow-up, chart reviewed. Patient noted to be anxious about the possibility of being discharged back to her daughter's home. Patient noted to have more somatic complaints when speaking about discharge. She states having been visited by her daughter over the weekend and states that it went ok. Extensive discussion of her recovery will include continued outpatient follow up as well as ongoing therapy to help her deal with family dynamics. Treatment team contacted patient's daughter and stated that she feels ok with having the patient back home with her and would accomodate her schedule to assure that the patient attends her follow up appointments. Review of Systems Except as stated in HPI: all other systems reviewed are Neg Objective Alert: Yes [place]: Person, Place, Date, Situation Mood: Anxious Affect: Other (congruent with mood) Memory Intact: Immediate, Recent, Remote Hallucinations: Other (no hallucinations) Delusions: No Delusion Type: Other (not elicited) Suicidal: Ideation (no SI) Homicidal: Ideation (no HI) Insight/Judgment limited insight, impulse control and fair judgement Vitals/IOs Vital Signs Date Time Temp Pulse Resp B/P (MAP) Pulse Ox O2 Delivery O2 Flow Rate FiO2 08/13/17 04:41 97.7 56 17 148/76 (100) 94 Assessment & Plan Problem List: (1) Adjustment disorder with depressed mood ICD Codes: F43.21 - Adjustment disorder with depressed mood (2) Catatonia ICD Codes: F06.1 - Catatonic disorder due to known physiological condition Status: Resolved (3) History of schizophrenia ICD Codes: Z86.59 - Personal history of other mental and behavioral disorders Status: Chronic Assessment & Plan Patient continues to endorse feeling anxious and mostly pertaining her relationship with her daughter. Patient aware that she will discharged home soon as team has confirmed with daughter to be supportive. Continue current treatment, probable discharge this week. Discharge planning in progress. Justification for Cont. Inpt. At risk for further decompensation if at lower level of care Calderon Thorpe MD Aug 13, 2017 17:57
[2017-08-13] MEDS: QUEtiapine FUMARATE 100 MG TAB PO SCH (21:00)
[2017-08-14] MEDS: hydrOXYzine PAMOATE 25 MG CAP PO PRN ×2 (00:50→12:49)
[2017-08-14] MEDS: ACETAMINOPHEN/HYDROcodone 325 MG/5 MG TAB PO PRN (05:30)
[2017-08-14] MEDS: cloNIDine HCL 0.1 MG TAB PO SCH ×2 (05:49→12:49)
[2017-08-14 08:12] LABS: AUTOMATED NEUTROPHIL # 1.9 TH/MM3 (1.8-7.7); BASOPHIL % 0.7 % (0.0-2.0); EOSINOPHIL # 0.1 TH/MM3 (0-0.4); EOSINOPHIL % 2.1 % (0.0-4.0); HEMATOCRIT 36.8 % (35.0-46.0); HEMO FLAGS DIFF FINAL; LYMPH % 47.7 % (9.0-44.0); LYMPHOCYTE # 2.1 TH/MM3 (1.0-4.8); MEAN CELL VOLUME 91.2 FL (80.0-100.0); MEAN CORPUSCULAR HEMOGLOBIN 30.9 PG (27.0-34.0); MEAN CORPUSCULAR HGB CONC 33.8 % (32.0-36.0); MONO % 7.5 % (0.0-8.0); PLATELET COUNT 171 TH/MM3 (150-450); RED BLOOD COUNT 4.04 MIL/MM3 (4.00-5.30); RED CELL DISTRIBUTION WIDTH 13.8 % (11.6-17.2); WHITE BLOOD COUNT 4.4 TH/MM3 (4.0-11.0)
[2017-08-14 08:39] LABS: ANION GAP 5 MEQ/L (5-15); AST (GOT) 9 U/L (15-37); BICARBONATE 27.7 MEQ/L (21.0-32.0); BLOOD UREA NITROGEN 14 MG/DL (7-18); CHLORIDE 107 MEQ/L (98-107); GLOMERULAR FILTRATION RATE 54 ML/MIN (>89); SODIUM (NA) 140 MEQ/L (136-145)
[2017-08-14 08:41] LABS: ALT (GPT) 19 U/L (10-53)
[2017-08-14 08:43] LABS: ALKALINE PHOSPHATASE 95 U/L (45-117); TOTAL BILIRUBIN ADULT 0.3 MG/DL (0.2-1.0)
--- NOTE | 2017-08-14 09:00 | HHI.PR ---
Subjective History of Present Illness Patient c/o right hip pain and lower back pain checked x- ray shows nothing acute..and on Lortab 5/325 PO Every 6 hrs. + Ibuprofen. High BP. better now. getting physical therapy Low WBC Count normal now. Review of Systems Constitutional Constitutional: Fatigue Psychiatric Psychiatric: Anxiety, Depression Vitals/Results CBC/BMP: 08/14/17 0723 08/14/17 0723 Lab Results Laboratory Tests Test 08/14/17 07:23 White Blood Count 4.4 TH/MM3 Red Blood Count 4.04 MIL/MM3 Hemoglobin 12.5 GM/DL Hematocrit 36.8 % Mean Corpuscular Volume 91.2 FL Mean Corpuscular Hemoglobin 30.9 PG Mean Corpuscular Hemoglobin Concent 33.8 % Red Cell Distribution Width 13.8 % Platelet Count 171 TH/MM3 Mean Platelet Volume 7.1 FL Neutrophils (%) (Auto) 42.0 % Lymphocytes (%) (Auto) 47.7 % Monocytes (%) (Auto) 7.5 % Eosinophils (%) (Auto) 2.1 % Basophils (%) (Auto) 0.7 % Neutrophils # (Auto) 1.9 TH/MM3 Lymphocytes # (Auto) 2.1 TH/MM3 Monocytes # (Auto) 0.3 TH/MM3 Eosinophils # (Auto) 0.1 TH/MM3 Basophils # (Auto) 0.0 TH/MM3 CBC Comment DIFF FINAL Differential Comment Blood Urea Nitrogen 14 MG/DL Creatinine 1.05 MG/DL Random Glucose 94 MG/DL Total Protein 6.7 GM/DL Albumin 3.7 GM/DL Calcium Level 8.4 MG/DL Alkaline Phosphatase 95 U/L Aspartate Amino Transf (AST/SGOT) 9 U/L Alanine Aminotransferase (ALT/SGPT) 19 U/L Total Bilirubin 0.3 MG/DL Sodium Level 140 MEQ/L Potassium Level 4.0 MEQ/L Chloride Level 107 MEQ/L Carbon Dioxide Level 27.7 MEQ/L Anion Gap 5 MEQ/L Estimat Glomerular Filtration Rate 54 ML/MIN Physical Exam General General Appearance: Well Developed, Well Nourished, No Acute Distress, Comfortable Eyes Eye Exam: Sclera White, Extraocular Movement Intact Throat Throat Exam: Oral Mucosa [place] & Moist, Oral Pharynx Normal Neck Neck Exam: Neck Supple, Trachea Midline Pulmonary Resp Exam: Clear Bilaterally, Breath Sounds Equal, No Distress Cardiology CV Exam: Regular, Normal Sinus Rhythm Chest/Breast Chest/Breast Exam: Symmetry Gastrointestinal/Abdomen GI Exam: Soft, Non-Tender, Bowel Sounds Present Musculoskeletal MS Exam: Joints Intact, Normal Gait, Normal Tone, Good Strength Integumentary Skin Exam: Clear, Warm, Dry, Intact Extremeties Extremities Exam: No Edema Neurologic Neuro Exam: Alert, Awake, Oriented, Speech Clear, Moving All Extremities, No Focal Deficits Psychiatric Psych Exam: Appropriate Responses PUD Prophylasis PUD Prophylaxis: Protonix Assessment/Plan Assessment/Plan ASSESSMENT/PLAN 1. This is a 57-year female who was admitted with psych unit status post catatonia which was resolved. 2. History of anxiety. The patient is on Ativan 1 mg p.o. q.8 h 3. History of schizophrenia, Seroquel 25 mg p.o. b.i.d. 4. History of depression. The patient is on Effexor 37.5 mg p.o. daily. 5. History of hypertension. Continue with hydralazine 10 mg p.o. TID.. and on Clonidine 0.1 mg p.o. TID. + PRN we will monitor blood pressure. better now 6. DVT prophylaxis, the patient is walking. 7. GI prophylaxis Protonix 40 mg p.o. daily. 8. Osteoarthritis on Tylenol. 9. Hypokalemia resolved. 10. Right Hip pain and lower back pain checked x-ray right hip and lower back shows nothing acute, on Lortab 5/325 PO Every 6 hrs PRN Pain.+ Ibuprofen 11. Getting Physical therapy. 12. Low WBC Count normal now. We are going to manage the patient on a daily basis and make recommendation on a daily basis nexus. Check CBC and CMP in the morning. Discussed Condition with: Patient Tony Junior MD Aug 14, 2017 09:00
[2017-08-14] MEDS: PANTOPRAZOLE SOD 40 MG DELAYED RELEASE TAB PO SCH (09:23)
[2017-08-14] MEDS: LORazepam 1 MG TAB PO SCH (09:23)
[2017-08-14] MEDS: QUEtiapine FUMARATE 25 MG TAB PO SCH (09:23)
[2017-08-14] MEDS: hydrALAZINE HCL 10 MG TAB PO SCH ×2 (09:23→12:49)
[2017-08-14] MEDS: GABAPENTIN 100 MG CAP PO SCH ×2 (09:23→12:49)
[2017-08-14] MEDS: VENLAFAXINE HCL XR 37.5 MG CAP PO SCH (09:27)
[2017-08-14] MEDS ORDERED: PANT40TA3 PO (10:57)
[2017-08-14] MEDS ORDERED: LORA-474 PO (10:57)
[2017-08-14] MEDS ORDERED: QUET1TAB7 PO (10:57)
[2017-08-14] MEDS ORDERED: VENL75CA44 PO (10:57)
[2017-08-14] MEDS ORDERED: VENL1CAP38 PO (10:57)
[2017-08-14] MEDS ORDERED: HYDR-3798 PO (10:57)
[2017-08-14] MEDS ORDERED: GABA100C4 PO (10:57)
[2017-08-14] MEDS ORDERED: QUET1TAB8 PO (10:57)
[2017-08-14] MEDS ORDERED: TIZA4 PO (10:57)
--- NOTE | 2017-08-14 16:24 | HHI.DS ---
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 Remy documentation : Ms. Gann is a 57 year-old female with a history of unclear psychiatric history, possible schizophrenia diagnosis, who presented to the ED brought in by her daughter for odd behavior. Reviewing the EMR, I see no prior psychiatric contact within our system.Patient seen and examined. Chart reviewed. Case discussed with RN. Neuro consultation and workup noted. On my exam patient is stuporous and mute. She presents with purposeless movements including shoulder shrugging and neck flexion/extension. Posturing noted. [place] noted. Schnauzkrampf noted. No waxy flexibility. She does not follow simple commands. Based on my evaluation and collateral from daughter, below, I suspect catatonia and have asked the nurse to administer 2mg Ativan slow IV push over 2 minutes. I have d/ w daughter R/B/A of Ativan challenge.Patient is unable to provide any past psychiatric, family, chem dep or social history because of her current mental status.Patient's daughter, Ms. Barragan, is at the bedside. She reports that she had limited contact with mother until earlier this year when she brought patient down from [place] to live with her. She notes that patient had been residing in a nursing facility in [place] and had been on Xanax. Patient lived with daughter for several months without serious incident. She did exhibit some odd behaviors even then, such as hoarding toilet paper rolls, believing that people were watching her, stealing items of no value, etc. Daughter also noted a memory decrement since she last was in close contact with patient. Daughter took patient to Dr. Gaston at [facility] to establish psychiatric care, and patient has had several visits with Dr. Gaston but was not started on any psychotropics until about 1 week ago when she was started on Zyprexa and Effexor at low dose. Daughter notes that on Shahbaz before the weekend, patient became more confused and became immobile, and daughter brought patient into ED. She notes patient may have had ~4 previous similar episodes in the past. She notes patient has made suicidal threats but no attempts. Family history of BPAD and also dementia in patient's mother. Daughter notes patient has an extensive history of substance use issues, including hallucinogens and alcohol.Re-examined patient ~15min after Ativan challenge. Complete resolution of above symptoms and signs. Patient is awake, alert and interactive. Speaking readily and fluently. She tells me that she has "not been feeling well lately." Mood is somewhat depressed. Denies SI/HI. Possibly some paranoia and ideas of reference. Vague AVH, no reported CAH. Unsure of her psychiatric diagnosis" 08/01/2017 Patient was seen today for psychiatric reevaluation, case was discussed with nurse in charge. Documentation review. Patient was found sleeping, but easily arousable. Cooperative, calm, pleasant. However, mild to moderate psychomotor retardation/flat affect/poverty of speech noted. Patient reports that she has been doing much better in the last days," but I know so something is wrong with me in a one my psychiatric medication to be adjusted and be stabilized". Patient clarifies that she came from [place] to [place] to help her daughter with her grandkids "and I want to be able to do a good job and be in optimal conditions". Patient reports psychiatric history of depression and psychosis, multiple psychiatric hospitalizations, but denies suicidal attempts. She has been in multiple psychotropics, but she doesn't remember the names. She has been partially compliant with her medications in the past. She reports episodes of sharon auditory hallucinations and paranoia in the past, denies now. However at this moment patient reports depressed mood , anhedonia, frequent episodes of sadness and tears, intrusive thoughts of not being able to function in the society, decreased self esteem. Patient denies suicidal ideation, but express "I see myself going that way if I don't get better". Patient is fully oriented 3, no attention deficit, no fluctuation of consciousness. At this moment other than flat affect and mild poverty of speech the patient does not present any prominent symptomatology of catatonia. 08/02/2017 for psychiatric evaluation today patient reports feeling depressed. She says that her blood pressure has been very unsteady and she is very concerned about it, she said that she has been also presenting continues headache, stomach pain, and she is very concerned about medication side effects. Patient says that she knows that something is not okay with her and she needs psychiatric care. When she was asked about hearing voices or seeing things that illnesses, she says to ask these things to her daughter "she knows what is going wrong with me, but I don't know". Patient reports hopelessness, she report helplessness, she reports constant preoccupation about her underlying medical conditions and her health. During psychiatric evaluation patient becomes very labile, tearful, kind of disorganized. Try to get collateral information from her daughter Shyanne, , but she does not answer. Patient is oriented 3. Attention deficit, no gross cognitive impairment present. She denies suicidal and homicidal ideation, she denies visual and auditory hallucinations. No catatonic symptoms observed at this moment. Tobacco Use In Past 30 Days: No Tobacco Past 30 Days Alcohol Use: Never Hospital Course Patient is a 57 year-old female with a history of unclear psychiatric history, possible schizophrenia diagnosis, who presented to the ED brought in by her daughter for odd behavior and was initially noted to be catatonic but responded well to Ativan challenge. Patient was admitted to the inpatient psychiatry unit for stabilization. Patient was started on Venlfaxine 37.t and titrated up to 37.5mg PO daily and 75mg PO PM along with quetiapine 50mg HS and titrated up to 25mg PO AM and 100mg PO HS which she responded well to with improvement of mood. Patient did not endorse feeling sad or depressed nor having suicidal ideation. Upon discharge patient had no physical complaints, noted to be calm and cooperative, continued to have some anxiety about returning back home but felt comfortable going home after daughter had spoken to the treatment team. Patient advised to continue medication regimen along with adherence to follow up appointments for continuity of care. Patient agreed with plan. Results Blood Pressure 148 / 76 Vital Signs Date Time Temp Pulse Resp B/P (MAP) Pulse Ox O2 Delivery O2 Flow Rate FiO2 08/13/17 04:41 97.7 56 17 148/76 (100) 94 Laboratory Tests Test 08/12/17 09:40 08/14/17 07:23 White Blood Count 3.3 TH/MM3 (4.0-11.0) Red Blood Count 3.97 MIL/MM3 (4.00-5.30) Neutrophils # (Auto) 1.7 TH/MM3 (1.8-7.7) Aspartate Amino Transf (AST/SGOT) 10 U/L (15-37) 9 U/L (15-37) Estimat Glomerular Filtration Rate 59 ML/MIN (>89) 54 ML/MIN (>89) Lymphocytes (%) (Auto) 47.7 % (9.0-44.0) Creatinine 1.05 MG/DL (0.50-1.00) Calcium Level 8.4 MG/DL (8.5-10.1) Summary of Procedures None Imaging Last Impressions Lumbar Spine X-Ray 08/09/17 0000 Signed Impressions: Service Date/Time: July 14:08 - CONCLUSION: 1. Slight levocurvature. 2. Mild degenerative changes. Calderon Beck MD Hip and Pelvis X-Ray 08/09/17 0000 Signed Impressions: Service Date/Time: July 14:10 - CONCLUSION: No acute fracture right hip. Calderon Beck MD Pending results at discharge: No Medications # of Antipsychotic meds at D/C: 1 Approp Antipsych med options 1 - Minimum of three failed multiple trials of monotherapy. 2 - Documented plan to taper to monotherapy due to previous use of multiple meds OR cross-taper in progress at D/C. 3 - Documentation of augmentation of Clozapine. 4 - Justification other than those listed in allowable values 1-3, document here : Discharge Discharge Date: Aug 14, 2017 Discharge Diagnosis: (1) Adjustment disorder with depressed mood Diagnosis: Principal ICD Code: F43.21 - Adjustment disorder with depressed mood (2) Catatonia Diagnosis: Secondary ICD Code: F06.1 - Catatonic disorder due to known physiological condition Status: Resolved Mental Status Exam at Disch Appearance/Behavior: appears stated age, in casual clothing, calm and cooperative with interview. Fair eye contact Speech: normal rate, tone and prosody Mood: "fine" Affect: euthymic TP: linear, future oriented TC: denies SI, HI, AVH or delusions Insight/Impulse control/judgment: fair A&O x3 Pt Condition on Discharge: Stable Discharge Disposition: Discharge Home Discharge Instructions Diet Instructions: Heart Healthy Diet Activities you can perform: Regular-No Restrictions Scheduled Appointment: [facility] Discharge Time > 30 minutes Discharge/Advance Care Plan Health Problems: (1) Adjustment disorder with depressed mood (2) Catatonia (3) History of schizophrenia Goals to promote your health * To prevent worsening of your condition and complications * To maintain your health at the optimal level Directions to meet your goals Take your medications as prescribed Follow your dietary instruction Follow activity as directed Keep your appointments as scheduled Take your immunizations and boosters as scheduled If your symptoms worsen call your PCP, if no PCP go to Urgent Care Center or Emergency Room For 11/06 questions related to your inpatient stay or results of tests pending at discharge, please contact Dr. Calderon Thorpe at Smoking is Dangerous to Your Health. Avoid second hand smoking Calderon Thorpe MD Aug 14, 2017 16:24
== END 2017-08-14 13:15 | disposition home or self-care (01) | DRG 881 ==
LOC: H4EA 23:30 → H260 08-03 17:00
PROVIDERS: ADMIT Student in an Organized Health Care Education/Training Program; ATTEND Student in an Organized Health Care Education/Training Program
DX: F43.21 Adjustment disorder with depressed mood (principal); F20.9 Schizophrenia, unspecified; R45.851 Suicidal ideations; I10 Essential (primary) hypertension; M79.7 Fibromyalgia; F41.9 Anxiety disorder, unspecified; D72.819 Decreased white blood cell count, unspecified; E87.6 Hypokalemia; M19.90 Unspecified osteoarthritis, unspecified site; M25.551 Pain in right hip; M54.5 Low back pain
CPT/HCPCS: 72100; 73503; 80053; 85025; 93005; Q0177

== ENCOUNTER 2017-08-28 18:34 | Inpatient (IN) | payer OTHER ==
[~2017-08-28] VITALS: Ht 165.1 cm; Wt 73.7 kg
[~2017-08-28 18:34] MED LIST changes: +GABA100C4 PO; +LORA-474 PO; +PANT40TA3 PO; +QUET1TAB7 PO; +QUET1TAB8 PO; +TIZA4 PO; +VENL1CAP38 PO; +VENL75CA44 PO
[2017-08-28 18:58] VITALS: BP 106/69; PULSE 72; RESP 16; TEMP 98.1; O2SAT 97
[2017-08-28] MEDS ORDERED: AMLO10 PO (19:58)
[2017-08-28] MEDS ORDERED: VIST50CA PO (19:58)
[2017-08-28] MEDS ORDERED: SERO100T PO (19:58)
[2017-08-28] MEDS ORDERED: ZOFR4TAB3 SL (19:58)
[2017-08-28] MEDS ORDERED: VENL75TA PO (19:58)
[2017-08-28] MEDS ORDERED: BUTA1CAP PO (19:58)
[2017-08-28] MEDS ORDERED: CLON0.1T PO (19:58)
[2017-08-28 20:04] LABS: BASOPHIL % 0.6 % (0.0-2.0); EOSINOPHIL # 0.1 TH/MM3 (0-0.4); EOSINOPHIL % 1.6 % (0.0-4.0); HEMATOCRIT 37.6 % (35.0-46.0); HEMO FLAGS DIFF FINAL; LYMPH % 38.3 % (9.0-44.0); LYMPHOCYTE # 1.5 TH/MM3 (1.0-4.8); MEAN CELL VOLUME 90.6 FL (80.0-100.0); MEAN CORPUSCULAR HEMOGLOBIN 30.5 PG (27.0-34.0); MEAN CORPUSCULAR HGB CONC 33.7 % (32.0-36.0); MONO % 6.7 % (0.0-8.0); NEUT % 52.8 % (16.0-70.0); PLATELET COUNT 176 TH/MM3 (150-450); RED BLOOD COUNT 4.15 MIL/MM3 (4.00-5.30); RED CELL DISTRIBUTION WIDTH 13.5 % (11.6-17.2); WHITE BLOOD COUNT 3.8 TH/MM3 (4.0-11.0)
[2017-08-28 20:31] LABS: ANION GAP 6 MEQ/L (5-15); BICARBONATE 25.2 MEQ/L (21.0-32.0); BLOOD UREA NITROGEN 15 MG/DL (7-18); CHLORIDE 106 MEQ/L (98-107); GLOMERULAR FILTRATION RATE 51 ML/MIN (>89); POTASSIUM 4.2 MEQ/L (3.5-5.1); SODIUM (NA) 137 MEQ/L (136-145)
[2017-08-28 20:32] LABS: ALT (GPT) 18 U/L (10-53); AST (GOT) 10 U/L (15-37)
[2017-08-28 20:34] LABS: ALCOHOL LESS THAN 3 MG/DL (0-5); ALKALINE PHOSPHATASE 103 U/L (45-117); TOTAL BILIRUBIN ADULT 0.3 MG/DL (0.2-1.0)
[2017-08-28 20:36] LABS: ACETAMINOPHEN LESS THAN 2.0 MCG/ML (10.0-30.0)
--- NOTE | 2017-08-28 20:40 | PD ---
HPI Chief Complaint: Psychiatric Symptoms Time Seen by Provider: 20:14 Travel History International Travel<30 days: No Contact w/Intl Traveler<30days: No Traveled to known affect area: No History of Present Illness HPI 57 year old female presents to the emergency department under [place] Act by her primary care provider, Dr. Tony Junior. Patient states she feels suicidal. She states she was recently diagnosed with schizophrenia, catatonia. She states she felt like she may go catatonic over the weekend which scared her and she would rather be than continue to go through this. Patient reports suicidal plan of "taking a drapery sewer hand to my carotid artery". She denies any attempt at this time to hurt herself. PFSH Past Medical History Anxiety: Yes Depression: Yes Cancer: No Cardiovascular Problems: Yes Diabetes: No Diminished Hearing: No Endocrine: No Fibromyalgia: Yes Gastrointestinal Disorders: Yes (IBS) Genitourinary: No Headaches: Yes Hypertension: Yes Immune Disorder: Yes Musculoskeletal: No Neurologic: No Psychiatric: Yes (Schizophrenia) Reproductive: No Respiratory: No Migraines: Yes Seizures: No Thyroid Disease: No Past Surgical History Section: Yes Social History Alcohol Use: No Tobacco Use: No Substance Use: No Allergies-Medications (Allergen,Severity, Reaction): Coded Allergies: penicillin G (Verified Adverse Reaction, Mild, HOT AND VOMITS, 08/28/17) Reported Meds & Prescriptions Reported Meds & Active Scripts Active Ativan (Lorazepam) 1 Mg Tab 1 Mg PO Q12HR 30 Days Pantoprazole (Pantoprazole Sodium) 40 Mg Tab 40 Mg PO DAILY 30 Days Quetiapine (Quetiapine Fumarate) 25 Mg Tab 25 Mg PO DAILY 30 Days Effexor XR 24 HR (Venlafaxine HCl) 37.5 Mg Cap 37.5 Mg PO DAILY@1600 30 Days Gabapentin 100 Mg Cap 100 Mg PO TID 30 Days Zanaflex (Tizanidine HCl) 4 Mg Tab 4 Mg PO HS 30 Days Reported Fioricet (Zkuauhxeza-Fdirnmtvulckd-Ufllqsnb) 50-300-40 Mg Cap 1 Cap PO Q4H PRN Zofran Odt (Ondansetron Odt) 4 Mg Tab 4 Mg SL Q8HR PRN Vistaril (Hydroxyzine Pamoate) 50 Mg Cap 50 Mg PO BID Clonidine (Clonidine HCl) 0.1 Mg Tab 0.1 Mg PO TID PRN Norvasc (Amlodipine Besylate) 10 Mg Tab 10 Mg PO DAILY Effexor (Venlafaxine HCl) 75 Mg Tab 75 Mg PO HS Seroquel (Quetiapine Fumarate) 100 Mg Tab 100 Mg PO HS Review of Systems Except as stated in HPI: all other systems reviewed are Neg Physical Exam Narrative GENERAL: Well-nourished, well-developed female patient, ambulatory. Afebrile. SKIN: Focused skin assessment warm/dry. HEAD: Normocephalic. Atraumatic. EYES: No scleral icterus. No injection or drainage. NECK: Supple, trachea midline. No JVD or lymphadenopathy. CARDIOVASCULAR: Regular rate and rhythm without murmurs, gallops, or rubs. RESPIRATORY: Breath sounds equal bilaterally. No accessory muscle use. Lungs sounds are clear to auscultation. GASTROINTESTINAL: Abdomen soft, non-tender, nondistended. MUSCULOSKELETAL: No cyanosis, or edema. PSYCHIATRIC: No delusional thought processes. No hallucinations. Data Data Last Documented VS Vital Signs Date Time Temp Pulse Resp B/P (MAP) Pulse Ox O2 Delivery O2 Flow Rate FiO2 08/28/17 18:58 98.1 72 16 106/69 (81) 97 Orders Orders Complete Blood Count With Diff (08/28/17 19:11) Comprehensive Metabolic Panel (08/28/17 19:11) Ed Urine Pregnancytest Poc (08/28/17 19:11) Psych Screen (08/28/17 19:11) Drug Screen, Random Urine (08/28/17 19:11) Alcohol (Ethanol) (08/28/17 19:11) Salicylates (Aspirin) (08/28/17 19:11) Tylenol (Acetaminophen) (08/28/17 19:11) Labs Laboratory Tests Test 08/28/17 19:35 08/28/17 20:28 White Blood Count 3.8 TH/MM3 Red Blood Count 4.15 MIL/MM3 Hemoglobin 12.6 GM/DL Hematocrit 37.6 % Mean Corpuscular Volume 90.6 FL Mean Corpuscular Hemoglobin 30.5 PG Mean Corpuscular Hemoglobin Concent 33.7 % Red Cell Distribution Width 13.5 % Platelet Count 176 TH/MM3 Mean Platelet Volume 6.5 FL Neutrophils (%) (Auto) 52.8 % Lymphocytes (%) (Auto) 38.3 % Monocytes (%) (Auto) 6.7 % Eosinophils (%) (Auto) 1.6 % Basophils (%) (Auto) 0.6 % Neutrophils # (Auto) 2.0 TH/MM3 Lymphocytes # (Auto) 1.5 TH/MM3 Monocytes # (Auto) 0.3 TH/MM3 Eosinophils # (Auto) 0.1 TH/MM3 Basophils # (Auto) 0.0 TH/MM3 CBC Comment DIFF FINAL Differential Comment Blood Urea Nitrogen 15 MG/DL Creatinine 1.10 MG/DL Random Glucose 92 MG/DL Total Protein 7.1 GM/DL Albumin 4.2 GM/DL Calcium Level 8.9 MG/DL Alkaline Phosphatase 103 U/L Aspartate Amino Transf (AST/SGOT) 10 U/L Alanine Aminotransferase (ALT/SGPT) 18 U/L Total Bilirubin 0.3 MG/DL Sodium Level 137 MEQ/L Potassium Level 4.2 MEQ/L Chloride Level 106 MEQ/L Carbon Dioxide Level 25.2 MEQ/L Anion Gap 6 MEQ/L Estimat Glomerular Filtration Rate 51 ML/MIN Salicylates Level LESS THAN 1.7 MG/DL Acetaminophen Level LESS THAN 2.0 MCG/ML Ethyl Alcohol Level LESS THAN 3 MG/DL Urine Opiates Screen NEG Urine Barbiturates Screen NEG Urine Amphetamines Screen NEG Urine Benzodiazepines Screen NEG Urine Cocaine Screen NEG Urine Cannabinoids Screen NEG MDM Medical Decision Making Medical Screen Exam Complete: Yes Emergency Medical Condition: Yes Medical Record Reviewed: Yes Differential Diagnosis Depression versus anxiety versus schizophrenia versus catatonia versus electrolyte abnormality Narrative Course 57-year-old female presents to the emergency Department under Ham act for psychiatric evaluation. CBC shows no acute abnormality. CMP shows no acute abnormality. Urine drug screen is negative. Salicylate level is less than 1.7. Tylenol level is less than 2.0. Alcohol level is less than 3. Patient is medically cleared for psychiatric screening and disposition. Mental health screening discussed with the patient. Psychiatric screen ordered. Diagnosis Primary Impression: Depression with suicidal ideation Condition: Gracie Jernigan Aug 28, 2017 20:40
[2017-08-29 00:11] VITALS: BP 123/83; PULSE 57; RESP 18; O2SAT 98
[2017-08-29 06:30] VITALS: BP 118/68; PULSE 68; RESP 18; O2SAT 100
[2017-08-29 11:23] VITALS: BP 122/79; PULSE 89; RESP 18; TEMP 97; O2SAT 96
[2017-08-29 15:25] VITALS: BP 144/98; PULSE 90; RESP 18; O2SAT 98
[2017-08-29] MEDS ORDERED: LORazepam 1 MG TAB PO ONE (17:15)
[2017-08-29] MEDS ORDERED: cloNIDine HCL 0.1 MG TAB PO ONE (17:15)
[2017-08-29 18:31] VITALS: BP 144/89; PULSE 81; RESP 18; O2SAT 99
[2017-08-29] MEDS ORDERED: LORazepam 2 MG/ML VIAL IM PRN ×2 (20:30)
[2017-08-29] MEDS ORDERED: cloNIDine HCL 0.1 MG TAB PO PRN (20:30)
[2017-08-29] MEDS ORDERED: ACETAMINOPHEN 325 MG TAB PO PRN (20:30)
[2017-08-29] MEDS ORDERED: ONDANSETRON ODT 4 MG TAB SL PRN (20:30)
[2017-08-29] MEDS ORDERED: LORazepam 0.5 MG TAB PO PRN (20:30)
[2017-08-29] MEDS ORDERED: MAGNESIUM HYDROXIDE SUSP 30 ML CUP PO PRN (20:30)
[2017-08-29] MEDS: NICOTINE 21 MG/24 HR PATCH T-DERMAL SCH (20:30)
[2017-08-29] MEDS: VENLAFAXINE HCL 75 MG TAB PO SCH (21:05)
[2017-08-29 21:40] VITALS: BP 109/71; PULSE 67; RESP 18; TEMP 99; O2SAT 97
[2017-08-30] MEDS: LORazepam 1 MG TAB PO PRN ×4 (01:02→22:02)
[2017-08-30 05:36] VITALS: BP 124/63; PULSE 67; RESP 16; TEMP 97.7; O2SAT 97
[2017-08-30] MEDS: GABAPENTIN 100 MG CAP PO SCH ×3 (08:01→18:06)
[2017-08-30] MEDS: ALUMINUM/MAGNESIUM/SIMETH 30 ML CUP PO PRN ×2 (08:02→16:35)
[2017-08-30] MEDS: NICOTINE 21 MG/24 HR PATCH T-DERMAL SCH (08:02)
[2017-08-30 08:30] VITALS: BP 121/69; PULSE 97; RESP 16; TEMP 98.8; O2SAT 97
[2017-08-30] MEDS: REMOVE OLD NICODERM (NICOTINE) PATCH T-DERMAL SCH (08:36)
[2017-08-30 12:17] VITALS: BP 146/87; PULSE 80; RESP 16; TEMP 98.6; O2SAT 97
[2017-08-30 12:48] LABS: ANION GAP 8 MEQ/L (5-15); BICARBONATE 23.4 MEQ/L (21.0-32.0); CHLORIDE 104 MEQ/L (98-107); GLOMERULAR FILTRATION RATE 47 ML/MIN (>89); POTASSIUM 4.2 MEQ/L (3.5-5.1); SODIUM (NA) 135 MEQ/L (136-145)
[2017-08-30 12:51] LABS: HDL CHOLESTEROL 51.6 MG/DL (40.0-60.0); LDL CHOLESTEROL 121 MG/DL (0-99)
[2017-08-30 12:54] LABS: BLOOD UREA NITROGEN 11 MG/DL (7-18)
[2017-08-30] MEDS: VENLAFAXINE HCL 25 MG TAB PO SCH (14:15)
[2017-08-30] MEDS: QUEtiapine FUMARATE 25 MG TAB PO SCH (15:54)
--- NOTE | 2017-08-30 16:28 | HHI.HP ---
Provisional Diagnosis Admission Date Aug 29, 2017 at 20:36 [place] I. Adjustment disorder with depressed mood Certification of Person's Competence To Provide Express and Informed Consent I have personally examined Twyla Gann , a person being served at [facility] on, Aug 30, 2017 16:27. Express and informed consent means consent voluntarily given in writing, by a competent person, after sufficient explanation and disclosure of the subject matter involved to enable the person to make a knowing and willful decision without any element of force, fraud, deceit, duress, or other form of constraint or coercion. This person is 18 years of age or older, is not now known to be incompetent to consent to treatment with a guardian advocate, and does not have a health care surrogate or proxy currently making medical treatment decisions. I have found this person to be one of the following: [x] Competent to provide express and informed consent, as defined above, for voluntary admission to this facility and is competent to provide express and informed consent for treatment. He/she has the consistent capacity to make well reasoned, willful, and knowing decisions concerning his or her medical or mental health treatment. The person fully and consistently understands the purpose of the admission for examination/placement and is fully capable of personally exercising all rights assured [place] Incompetent to provide express and informed consent to voluntary admission, and this is incompetent to provide express and informed consent to treatment. The person must be transferred to involuntary status and a petition for a guardian advocate filed with the Circuit Court. [] Refusing to provide express and informed consent to voluntary admission but is competent to provide express and informed consent for treatment. The person must be discharged or transferred to involuntary status. Form shall be completed within 24 hours of a person's arrival at the receiving facility and filed in the clinical record of each person: 1. Admitted on a voluntary basis 2. Permitted to provide express and informed consent to his/her own treatment 3. Allowed to transfer from involuntary to voluntary status 4. Prior to permitting a person to consent to his or her own treatment after having been previously found incompetent to consent to treatment. History of Present Illness Capacity: Has Capacity Psych Chief Complaint: suicidal ideations HPI Patient states that she was adherent to follow-up and medications upon discharge last hospitalization but continue to have relational discord with her daughter which is a source of her anxiety and stress. Patient states that she had just seen her primary care doctor on Sunday and told that she did not want to live anymore as well as stating that I dont want to live when I dont get along with my daughter. She states that things have not resolved between them and upon her a plan with Dr. Junior called her daughter told her that she was going to go to the hospital for unresolved issues. Patient reports referring to her diagnosis of schizophrenia and continues to return back to her discord with her daughter. Patient aware that her primary source of stress is her relationship with daughter and asks if daughter can be brought in for family therapy which patient was advised that family therapy would need to be done as an outpatient basis which she understood. She continues to report feeling unhappy living there but is aware that she will likely return there to live she has not considered possibility of living anywhere else. Patient at this time but to be anxious, denies any SI, HI, AVH or delusions at this time. Family psychiatric history: Family history of BPAD and also dementia in patient' s mother. Past psychiatric history: previous psychiatric diagnosis of schizophrenia vs schizoaffective disorder depressed type, anxiety disorder, previous psychiatric admission ([facility] in 2016), no previous suicide attempt or history of self injurious behavior. Outpatient mental health services: [facility], last seen two days ago. Previous psychiatric medications: Effexor, Seroquel, Gabapentin, Trazodone Substance use history: extensive history of substance use issues, including hallucinogens and alcohol Past medical history: HTN Allergies: PCN G Social history: domiciled with daughter Shyanne, , unemployed on social security income. Review of Systems Except as stated in HPI: all other systems reviewed are Neg Past Psych History Violence risk - others (6 mos) low Violence risk - self (6 mos) low Substance Abuse History Drugs/Alcohol past 12 months extensive history of substance use issues, including hallucinogens and alcohol Past Family Social History Coded Allergies: penicillin G (Verified Adverse Reaction, Mild, HOT AND VOMITS, 08/28/17) Active Scripts Lorazepam (Ativan) 1 Mg Tab, 1 MG PO Q12HR for health for 30 Days, #60 TAB Prov:Calderon Thorpe MD 08/14/17 Pantoprazole (Pantoprazole) 40 Mg Tab, 40 MG PO DAILY for health for 30 Days, # 30 TAB Prov:Calderon Thorpe MD 08/14/17 Quetiapine (Quetiapine) 25 Mg Tab, 25 MG PO DAILY for health for 30 Days, #30 TAB Prov:Calderon Thorpe MD 08/14/17 Venlafaxine ER 24 HR (Effexor XR 24 HR) 37.5 Mg Cap, 37.5 MG PO DAILY@1600 for health for 30 Days, #30 CAP Prov:Calderon Thorpe MD 08/14/17 Gabapentin (Gabapentin) 100 Mg Cap, 100 MG PO TID for health for 30 Days, #90 CAP Prov:Calderon Thorpe MD 08/14/17 Tizanidine (Zanaflex) 4 Mg Tab, 4 MG PO HS for health for 30 Days, #30 TAB Prov:Calderon Thorpe MD 08/14/17 Reported Medications Yrttkxsftv-Hvbebchsasnyl-Rknwibhk (Fioricet) 50-300-40 Mg Cap, 1 CAP PO Q4H Y for HEADACHE, CAP 0 Refills 08/28/17 Ondansetron Odt (Zofran Odt) 4 Mg Tab, 4 MG SL Q8HR Y for Nausea/Vomiting, #30 TAB 0 Refills 08/28/17 Hydroxyzine Pamoate (Vistaril) 50 Mg Cap, 50 MG PO BID, CAP 0 Refills 08/28/17 Clonidine (Clonidine) 0.1 Mg Tab, 0.1 MG PO TID Y for TARGET BLOOD PRESSURE NOT MET, #60 TAB 0 Refills 08/28/17 Amlodipine (Norvasc) 10 Mg Tab, 10 MG PO DAILY for Blood Pressure Management, # 30 TAB 0 Refills 08/28/17 Venlafaxine (Effexor) 75 Mg Tab, 75 MG PO HS, #30 TAB 0 Refills 08/28/17 Quetiapine (Seroquel) 100 Mg Tab, 100 MG PO HS, #30 TAB 0 Refills 08/28/17 Discontinued Scripts Quetiapine (Quetiapine) 100 Mg Tab, 100 MG PO HS for health for 30 Days, #30 TAB Prov:Calderon Thorpe MD 08/14/17 Venlafaxine ER 24 HR (Venlafaxine ER 24 HR) 75 Mg Cap, 75 MG PO DAILY for health , #30 CAP 0 Refills Prov:Calderon Thorpe MD 08/14/17 Hydralazine HCl (Hydralazine HCl) 10 Mg Tablet, 10 MG PO TID for health for 30 Days, #90 TAB Prov:Calderon Thorpe MD 08/14/17 Clonidine (Clonidine) 0.1 Mg Tab, 0.1 MG PO Q12HR Y for SBP>180, DBP>95, #5 TAB 0 Refills Prov:Justa Estrada MD 07/07/17 Current Medications Medications (Trade) Dose Ordered Sig/Azra Route Start Time Stop Time Status Last Admin (Norvasc) 10 mg DAILY PO 08/30/17 09:00 08/30/17 12:19 (Catapres) 0.1 mg TID PRN PO 08/29/17 20:30 (Neurontin) 100 mg TID PO 08/30/17 09:00 08/30/17 12:19 (Zofran Odt) 4 mg Q8HR PRN SL 08/29/17 20:30 08/30/17 03:36 (Zanaflex) 4 mg HS PO 08/29/17 21:00 08/29/17 21:06 (Effexor) 75 mg HS PO 08/29/17 21:00 08/29/17 21:05 (Ativan) 1 mg Q6H PRN PO 08/29/17 20:30 08/30/17 08:05 (Ativan Inj) 1 mg Q6H PRN IM 08/29/17 20:30 (Tylenol) 650 mg Q4H PRN PO 08/29/17 20:30 08/29/17 20:50 (Milk Of Magnesia Liq) 30 ml DAILY PRN PO 08/29/17 20:30 (Mag-Al Plus Susp Liq) 30 ml Q6H PRN PO 08/29/17 20:30 08/30/17 08:02 (Habitrol 21 Mg Patch.24 Hr) 1 patch DAILY T-DERMAL 08/29/17 20:30 Miscellaneous Information 1 DAILY T-DERMAL 08/30/17 09:00 (SEROquel) 25 mg DAILY PO 08/30/17 14:15 08/30/17 15:54 (SEROquel) 150 mg HS PO 08/30/17 21:00 (Effexor) 37.5 mg DAILY PO 08/30/17 14:15 Family Psych History Family history of BPAD and also dementia in patient's mother. Social History domiciled with daughter Shyanne, , unemployed on social security income. Patient's Strengths (min. 2) verbal and communicative Physical Exam Patient found to be in no acute distress, no noted gross motor abnormalities, no tremors of EPS, no noted psychomotor agitation of retardation. Vital Signs Vital Signs Date Time Temp Pulse Resp B/P (MAP) Pulse Ox O2 Delivery O2 Flow Rate FiO2 08/30/17 12:17 98.6 80 16 146/87 (106) 97 08/29/17 18:31 Room Air Lab Results Labs reviewed Test 08/30/17 11:14 Blood Urea Nitrogen 11 MG/DL Creatinine 1.19 MG/DL Random Glucose 89 MG/DL Calcium Level 8.5 MG/DL Sodium Level 135 MEQ/L Potassium Level 4.2 MEQ/L Chloride Level 104 MEQ/L Carbon Dioxide Level 23.4 MEQ/L Anion Gap 8 MEQ/L Estimat Glomerular Filtration Rate 47 ML/MIN Triglycerides Level 80 MG/DL Cholesterol Level 189 MG/DL LDL Cholesterol 121 MG/DL HDL Cholesterol 51.6 MG/DL Cholesterol/HDL Ratio 3.66 RATIO Mental Status Examination Appearance: Appropriate Consciousness: Alert Orientation: x4 Motor Activity: Normal gait Speech: Unremarkable Language: Adequate Fund of Knowledge: Adequate Attention and Concentration: Adequate Memory: Unremarkable Mood: Anxious Affect: Anxious Thought Process & Associations: Intact, Logical, Linear Thought Content: Appropriate Hallucination Type: None Delusion Type: None Suicidal Ideation: No Suicidal Plan: No Suicidal Intention: No Homicidal Ideation: No Homicidal Plan: No Homicidal Intention: No Insight: Fair Judgment: Impulsive Assessment & Plan Problem List: (1) Adjustment disorder with mixed anxiety and depressed mood ICD Codes: F43.23 - Adjustment disorder with mixed anxiety and depressed mood Assessment & Plan Patient is a 57 y/o woman who carries a diagnosis of schizophrenia vs. schizoaffective disorder who was recently discharged from [facility] several weeks ago who was brought in under [facility] after having expressed to her PCP of having suicidal ideations in the context of relationship discord with her daughter. Patient expresses discontent with her relationship with daughter which is likely the source of her anxiety and due to her frustrations likely expressed suicidal thoughts to her PCP as patient upon interview stated wanting to get away for a couple of days and directly related to her relationship with her daughter. Patient at this time denies any SI, HI, AVH or delusions but will be observed overnight for safety and for mood and behavior but likely will not require further inpatient hospitalization and can be managed on an outpatient basis along with possibly family therapy. Patient will resume current medication regimen: quetiapine 25mg AM/150mg HS, venlafaxine 37.5mg AM/75mg PM, gabapentin 100mg PO TID. Collateral information pending. Discharge planning in progress. Discharge Planning Patient likely to return back to daughter's home upon discharge. Calderon Thorep MD Aug 30, 2017 16:28
[2017-08-30 17:01] VITALS: BP 133/73; PULSE 85; RESP 17; TEMP 98.3; O2SAT 98
[2017-08-30] MEDS ORDERED: QUEtiapine FUMARATE 100 MG TAB PO SCH (21:00)
[2017-08-30] MEDS: VENLAFAXINE HCL 75 MG TAB PO SCH (21:48)
[2017-08-30 21:52] LABS: HEMOGLOBIN A1a 1.3 %; HEMOGLOBIN A1b 0.8 %; HEMOGLOBIN Ao 85.2 %; HEMOGLOBIN F 1.3 %; HEMOGLOBIN LA1C 1.9 %; HEMOGLOBIN P3 3.5 %
[2017-08-31 05:41] VITALS: BP 104/68; PULSE 71; RESP 16; TEMP 97.9; O2SAT 98
[2017-08-31] MEDS: GABAPENTIN 100 MG CAP PO SCH (08:10)
[2017-08-31] MEDS: QUEtiapine FUMARATE 25 MG TAB PO SCH (08:10)
[2017-08-31] MEDS: VENLAFAXINE HCL 25 MG TAB PO SCH (08:12)
[2017-08-31] MEDS: NICOTINE 21 MG/24 HR PATCH T-DERMAL SCH (08:35)
[2017-08-31] MEDS ORDERED: TIZA4 PO (08:53)
[2017-08-31] MEDS ORDERED: QUET1TAB7 PO (08:53)
[2017-08-31] MEDS ORDERED: AMLO10 PO (08:53)
[2017-08-31] MEDS ORDERED: VENL75TA PO (08:53)
[2017-08-31] MEDS ORDERED: QUET1TAB8 PO (08:53)
[2017-08-31] MEDS ORDERED: VENL25TA PO (08:53)
[2017-08-31] MEDS ORDERED: GABA100C4 PO (08:53)
[2017-08-31] MEDS: REMOVE OLD NICODERM (NICOTINE) PATCH T-DERMAL SCH (09:00)
--- NOTE | 2017-08-31 13:01 | HHI.DS ---
Psychiatry Discharge Summary Inpatient Psychiatric care?: Yes Advance Directive: No Reason Not Provided: declined Mental Health AdvanceDirective: No Health Care Proxy: No Admission Admission Date Aug 29, 2017 at 20:36 Admission Diagnosis: (1) Adjustment disorder with mixed anxiety and depressed mood ICD Code: F43.23 - Adjustment disorder with mixed anxiety and depressed mood Brief History Patient states that she was adherent to follow-up and medications upon discharge last hospitalization but continue to have relational discord with her daughter which is a source of her anxiety and stress. Patient states that she had just seen her primary care doctor on Sunday and told that she did not want to live anymore as well as stating that I dont want to live when I dont get along with my daughter. She states that things have not resolved between them and upon her a plan with Dr. Junior called her daughter told her that she was going to go to the hospital for unresolved issues. Patient reports referring to her diagnosis of schizophrenia and continues to return back to her discord with her daughter. Patient aware that her primary source of stress is her relationship with daughter and asks if daughter can be brought in for family therapy which patient was advised that family therapy would need to be done as an outpatient basis which she understood. She continues to report feeling unhappy living there but is aware that she will likely return there to live she has not considered possibility of living anywhere else. Patient at this time but to be anxious, denies any SI, HI, AVH or delusions at this time. Family psychiatric history: Family history of BPAD and also dementia in patient' s mother. Past psychiatric history: previous psychiatric diagnosis of schizophrenia vs schizoaffective disorder depressed type, anxiety disorder, previous psychiatric admission ([facility] in 2016), no previous suicide attempt or history of self injurious behavior. Outpatient mental health services: [facility], last seen two days ago. Previous psychiatric medications: Effexor, Seroquel, Gabapentin, Trazodone Substance use history: extensive history of substance use issues, including hallucinogens and alcohol Past medical history: HTN Allergies: PCN G Social history: domiciled with daughter Shyanne, , unemployed on social security income. Tobacco Use In Past 30 Days: No Tobacco Past 30 Days Alcohol Use: Never Hospital Course Patient is a 57 y/o woman who carries a diagnosis of schizophrenia vs. schizoaffective disorder who was recently discharged from [facility] several weeks ago who was brought in under [facility] after having expressed to her PCP of having suicidal ideations in the context of relationship discord with her daughter. Patient expresses discontent with her relationship with daughter which is likely the source of her anxiety and due to her frustrations likely expressed suicidal thoughts to her PCP as patient upon interview stated wanting to get away for a couple of days and directly related to her relationship with her daughter. Patient was admitted to the inpatient psychiatry unit where he was continued on quetiapine 25mg PO am/ 150mg PO HS, venlafaxine 37.5am/75mg PO pm, gabapentin 100mg PO TID which he tolerated well. Patient continued to have stable mood, noted to be calm and pleasant with staff with no behavioral dyscontrol but continued on perseveration of her relationship discord with her daughter which she will continue require to address relationship issues amongst themselves which she agreed to. Patient agrees to continue treatment and attend outpatient follow up appointments for continuity of care. Patient denies SI, HI, AVH or delusions. Supportive psychotherapy provided. Patient advised to return to ED or call 911 in case of emergency. Patient agrees with plan. Results Blood Pressure 104 / 68 Vital Signs Date Time Temp Pulse Resp B/P (MAP) Pulse Ox O2 Delivery O2 Flow Rate FiO2 08/31/17 05:41 97.9 71 16 104/68 (80) 98 08/29/17 18:31 Room Air Laboratory Tests Test 08/28/17 19:35 08/28/17 20:28 08/30/17 11:14 White Blood Count 3.8 TH/MM3 (4.0-11.0) Mean Platelet Volume 6.5 FL (7.0-11.0) Creatinine 1.10 MG/DL (0.50-1.00) 1.19 MG/DL (0.50-1.00) Aspartate Amino Transf (AST/SGOT) 10 U/L (15-37) Estimat Glomerular Filtration Rate 51 ML/MIN (>89) 47 ML/MIN (>89) Salicylates Level LESS THAN 1.7 MG/DL Acetaminophen Level LESS THAN 2.0 MCG/ML Sodium Level 135 MEQ/L (136-145) LDL Cholesterol 121 MG/DL (0-99) Laboratory Results Test 08/30/17 11:14 Cholesterol Level 189 MG/DL (120-200) HDL Cholesterol 51.6 MG/DL (40.0-60.0) Hemoglobin A1c 5.7 % (4.3-6.0) LDL Cholesterol 121 MG/DL (0-99) Triglycerides Level 80 MG/DL (42-150) Summary of Procedures none Pending results at discharge: No Medications # of Antipsychotic meds at D/C: 1 Approp Antipsych med options 1 - Minimum of three failed multiple trials of monotherapy. 2 - Documented plan to taper to monotherapy due to previous use of multiple meds OR cross-taper in progress at D/C. 3 - Documentation of augmentation of Clozapine. 4 - Justification other than those listed in allowable values 1-3, document here : Discharge Discharge Date: Aug 31, 2017 Discharge Diagnosis: (1) Adjustment disorder with mixed anxiety and depressed mood ICD Code: F43.23 - Adjustment disorder with mixed anxiety and depressed mood Pt Condition on Discharge: Stable Discharge Disposition: Discharge Home Discharge Instructions Diet Instructions: Heart Healthy Diet Activities you can perform: Regular-No Restrictions Scheduled Appointment: [facility] Discharge Time > 30 minutes Mental Status Examination Appearance: Appropriate Consciousness: Alert Orientation: x4 Motor Activity: Normal gait Speech: Unremarkable Language: Adequate Fund of Knowledge: Adequate Attention and Concentration: Adequate Memory: Unremarkable Mood: Appropriate Affect: Appropriate Thought Process & Associations: Intact, Logical, Linear Thought Content: Appropriate Hallucination Type: None Delusion Type: None Suicidal Ideation: No Suicidal Plan: No Suicidal Intention: No Homicidal Ideation: No Homicidal Plan: No Homicidal Intention: No Insight: Fair Judgment: Impulsive Discharge/Advance Care Plan Health Problems: (1) Adjustment disorder with mixed anxiety and depressed mood Goals to promote your health * To prevent worsening of your condition and complications * To maintain your health at the optimal level Directions to meet your goals Take your medications as prescribed Follow your dietary instruction Follow activity as directed Keep your appointments as scheduled Take your immunizations and boosters as scheduled If your symptoms worsen call your PCP, if no PCP go to Urgent Care Center or Emergency Room For 11/06 questions related to your inpatient stay or results of tests pending at discharge, please contact Dr. Calderon Thorpe at Smoking is Dangerous to Your Health. Avoid second hand smoking Calderon Thorpe MD Aug 31, 2017 13:01
== END 2017-08-31 12:20 | disposition home or self-care (01) | DRG 882 ==
LOC: NEDAMB 18:34 → NEDA 08-29 20:36 → H260 08-29 21:36
PROVIDERS: ADMIT Student in an Organized Health Care Education/Training Program; ATTEND Student in an Organized Health Care Education/Training Program
DX: F43.23 Adjustment disorder with mixed anxiety and depressed mood (principal); R45.851 Suicidal ideations; Z81.8 Family history of other mental and behavioral disorders; I10 Essential (primary) hypertension
CPT/HCPCS: 80048; 80053; 80061; 80307; 83036; 84703; 85025

== ENCOUNTER 2017-09-25 15:58 | Inpatient (IN) | payer OTHER ==
[~2017-09-25 15:58] MED LIST changes: +AMLO10 PO; +BUTA1CAP PO; +COLY4000S PO; -HYDR-3798 PO; +SERO100T PO; +VENL25TA PO; -VENL75CA44 PO; +VENL75TA PO; +VIST50CA PO; +ZOFR4TAB3 SL
[2017-09-25 15:59] VITALS: BP 118/76; PULSE 87; RESP 15; TEMP 98.8; O2SAT 100
[2017-09-25 17:39] LABS: BLOOD, URINE NEG (NEG); COMMENT (UR) CULT NOT INDICATED; CULTURE IF INDICATED CULT NOT INDICATED; GLUCOSE,URINE NEG (NEG); KETONE, URINE NEG (NEG); NITRITE,URINE NEG (NEG); PH, URINE 6.5 (5.0-8.5); SQUAMOUS EPITHELIAL CELL URINE 1 /hpf (0-5); URINE COLOR LIGHT-YELLOW (YELLW/STRAW)
--- NOTE | 2017-09-25 18:23 | PD ---
HPI Chief Complaint: Depression Time Seen by Provider: 17:45 Travel History International Travel<30 days: No Contact w/Intl Traveler<30days: No Traveled to known affect area: No History of Present Illness HPI 57-year-old female that presents to the ED for evaluation of involuntary psychiatric evaluation. Patient has a history of schizo effective disorder with depression. She states been compliant with her medications but states that 2 of her medications have been off for the past 2 weeks secondary to trouble with getting it filled. Per patient for the past 2 weeks she's been feeling more depressed. Per patient she feels suicidal states that she wants to hurt herself. She has a complicated history with her daughter and she lives with her daughter. She was recently admitted in August for something similar. She states that her symptoms are worse when she sat home. She denies any fevers chills or sweats. No chest pain or shortness of breath. She was recently seen for constipation have blood work that was essentially unremarkable. Denies any hallucinations. Denies any homicidal ideation. No substance or alcohol abuse. PFSH Past Medical History Autoimmune Disease: Yes (fibromyaliga) Anxiety: Yes Depression: Yes Cancer: No Cardiovascular Problems: Yes (HTN) Diabetes: No Diminished Hearing: No Endocrine: No Fibromyalgia: Yes Gastrointestinal Disorders: Yes (IBS) Genitourinary: No Headaches: Yes Hypertension: Yes Immune Disorder: Yes Implanted Vascular Access Dvce: No Musculoskeletal: No Neurologic: No Psychiatric: Yes (Schizophrenia) Reproductive: No Respiratory: No Immunizations Current: Yes Migraines: Yes Seizures: No Thyroid Disease: No Tetanus Vaccination: Unknown Past Surgical History Section: Yes Hysterectomy: Yes (PARTIAL) Other Surgery: Yes Social History Alcohol Use: No Tobacco Use: No Substance Use: No Allergies-Medications (Allergen,Severity, Reaction): Coded Allergies: prednisone (Verified Allergy, Unknown, Hotflash, 09/18/17) penicillin G (Verified Adverse Reaction, Mild, HOT AND VOMITS, 09/18/17) Reported Meds & Prescriptions Reported Meds & Active Scripts Active Golytely 236 gm (Polyethylene Glycol/Electrolytes) 4,000 Ml Soln 4,000 Ml PO ONCE Quetiapine (Quetiapine Fumarate) 25 Mg Tab 25 Mg PO DAILY 30 Days Quetiapine (Quetiapine Fumarate) 100 Mg Tab 150 Mg PO HS 30 Days Effexor (Venlafaxine HCl) 25 Mg Tab 37.5 Mg PO DAILY 30 Days Effexor (Venlafaxine HCl) 75 Mg Tab 75 Mg PO HS 30 Days Gabapentin 100 Mg Cap 100 Mg PO TID 30 Days Norvasc (Amlodipine Besylate) 10 Mg Tab 10 Mg PO DAILY 30 Days Zanaflex (Tizanidine HCl) 4 Mg Tab 4 Mg PO HS 30 Days Ativan (Lorazepam) 1 Mg Tab 1 Mg PO Q12HR 30 Days Pantoprazole (Pantoprazole Sodium) 40 Mg Tab 40 Mg PO DAILY 30 Days Quetiapine (Quetiapine Fumarate) 25 Mg Tab 25 Mg PO DAILY 30 Days Effexor XR 24 HR (Venlafaxine HCl) 37.5 Mg Cap 37.5 Mg PO DAILY@1600 30 Days Gabapentin 100 Mg Cap 100 Mg PO TID 30 Days Zanaflex (Tizanidine HCl) 4 Mg Tab 4 Mg PO HS 30 Days Reported Fioricet (Nqamxxqgnm-Bgqwublkddsfk-Cmggoevb) 50-300-40 Mg Cap 1 Cap PO Q4H PRN Zofran Odt (Ondansetron Odt) 4 Mg Tab 4 Mg SL Q8HR PRN Vistaril (Hydroxyzine Pamoate) 50 Mg Cap 50 Mg PO BID Clonidine (Clonidine HCl) 0.1 Mg Tab 0.1 Mg PO TID PRN Seroquel (Quetiapine Fumarate) 100 Mg Tab 100 Mg PO HS Review of Systems Except as stated in HPI: all other systems reviewed are Neg Physical Exam Narrative GENERAL: SKIN: Warm and dry. HEAD: Atraumatic. Normocephalic. EYES: Pupils equal and round. No scleral icterus. No injection or drainage. ENT: No nasal bleeding or discharge. Mucous membranes pink and moist. Tongue is midline. No uvula deviation. NECK: Trachea midline. No JVD. CARDIOVASCULAR: Regular rate and rhythm. No murmurs, S3, S4. RESPIRATORY: No accessory muscle use. Clear to auscultation. Breath sounds equal bilaterally. GASTROINTESTINAL: Abdomen soft, non-tender, nondistended. Hepatic and splenic margins not palpable. MUSCULOSKELETAL: Extremities without clubbing, cyanosis, or edema. No obvious deformities. Full range of motion of the upper and lower extremities bilaterally. 2+ pulses bilaterally. NEUROLOGICAL: Awake and alert. No obvious cranial nerve deficits. Motor grossly within normal limits. Five out of 5 muscle strength in the arms and legs. Normal speech. PSYCHIATRIC: Appropriate mood and affect; insight and judgment normal. Data Data Last Documented VS Vital Signs Date Time Temp Pulse Resp B/P (MAP) Pulse Ox O2 Delivery O2 Flow Rate FiO2 09/25/17 15:59 98.8 87 15 118/76 (90) 100 Orders Orders Complete Blood Count With Diff (09/25/17 16:19) Basic Metabolic Panel (Bmp) (09/25/17 16:19) Urinalysis - C+S If Indicated (09/25/17 16:19) Psych Screen (09/25/17 16:19) Drug Screen, Random Urine (09/25/17 16:19) Alcohol (Ethanol) (09/25/17 16:19) Labs Laboratory Tests Test 09/25/17 17:07 Urine Color LIGHT-YELLOW Urine Turbidity CLEAR Urine pH 6.5 Urine Specific [place] 1.009 Urine Protein NEG mg/dL Urine Glucose (UA) NEG mg/dL Urine Ketones NEG mg/dL Urine Occult Blood NEG Urine Nitrite NEG Urine Bilirubin NEG Urine Urobilinogen LESS THAN 2.0 MG/DL Urine Leukocyte Esterase NEG Urine WBC 1 /hpf Urine Squamous Epithelial Cells 1 /hpf Microscopic Urinalysis Comment CULT NOT INDICATED Urine Opiates Screen NEG Urine Barbiturates Screen NEG Urine Amphetamines Screen NEG Urine Benzodiazepines Screen NEG Urine Cocaine Screen NEG Urine Cannabinoids Screen NEG MDM Medical Decision Making Medical Screen Exam Complete: Yes Emergency Medical Condition: Yes Medical Record Reviewed: Yes Interpretation(s) UA negative tox negative Differential Diagnosis Depression versus suicidal ideation versus anxiety versus adjustment disorder versus mood disorder versus bipolar disorder versus schizophrenia versus paranoid disorder versus psychosis versus substance abuse versus alcohol abuse versus alcohol induced psychosis versus homicidality addition versus cutting versus personality disorder Narrative Course 57-year-old female that presents to the ED for evaluation of psych. Patient was properly examined and was found to have signs and symptoms consistent psychiatric illness but no sign of acute medical distress. Labs were drawn. Patient was medically cleared. Okay to be seen by psych. Mental health screening was discussed with the patient. Diagnosis Primary Impression: Adjustment disorder with depressed mood Earl Elmore Sep 25, 2017 18:23
[2017-09-25 18:31] VITALS: BP_SYST 110; BP_SYST 189; BP_DIAS 71; BP_DIAS 86; PULSE 53; PULSE 83; RESP 16; RESP 18; TEMP 96.7; TEMP 98.1; O2SAT 100; O2SAT 97
[2017-09-25] MEDS ORDERED: SERO25TA PO (20:01)
[2017-09-25] MEDS ORDERED: LINA145C PO (20:01)
[2017-09-26 06:25] VITALS: BP 127/61; PULSE 57; RESP 18; O2SAT 96
[2017-09-26 10:29] LABS: AUTOMATED NEUTROPHIL # 2.8 TH/MM3 (1.8-7.7); BASOPHIL % 0.4 % (0.0-2.0); EOSINOPHIL # 0.1 TH/MM3 (0-0.4); EOSINOPHIL % 1.6 % (0.0-4.0); HEMATOCRIT 37.3 % (35.0-46.0); HEMO FLAGS DIFF FINAL; LYMPH % 34.3 % (9.0-44.0); LYMPHOCYTE # 1.7 TH/MM3 (1.0-4.8); MEAN CELL VOLUME 88.8 FL (80.0-100.0); MEAN CORPUSCULAR HEMOGLOBIN 30.6 PG (27.0-34.0); MEAN CORPUSCULAR HGB CONC 34.4 % (32.0-36.0); MONO % 6.8 % (0.0-8.0); NEUT % 56.9 % (16.0-70.0); PLATELET COUNT 191 TH/MM3 (150-450); RED CELL DISTRIBUTION WIDTH 13.4 % (11.6-17.2); WHITE BLOOD COUNT 4.9 TH/MM3 (4.0-11.0)
[2017-09-26] MEDS ORDERED: ONDANSETRON ODT 4 MG TAB SL PRN (11:15)
[2017-09-26] MEDS ORDERED: MAGNESIUM HYDROXIDE SUSP 30 ML CUP PO PRN (11:15)
[2017-09-26] MEDS ORDERED: LORazepam 2 MG/ML VIAL IM PRN (11:15)
[2017-09-26] MEDS ORDERED: ALUMINUM/MAGNESIUM/SIMETH 30 ML CUP PO PRN (11:15)
[2017-09-26] MEDS ORDERED: ACETAMINOPHEN 325 MG TAB PO PRN (11:15)
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
[2017-09-26 12:53] VITALS: BP 150/88; PULSE 66; RESP 16; TEMP 97.5; O2SAT 99
[2017-09-26] MEDS ORDERED: ACETAMIN 325 MG/BUTALBITAL 50 MG/CAFFEINE 40 MG TAB PO PRN (13:45)
[2017-09-26] MEDS: GABAPENTIN 100 MG CAP PO SCH (14:00)
[2017-09-26] MEDS: LORazepam 1 MG TAB PO PRN (14:47)
--- NOTE | 2017-09-26 20:38 | EKG ---
Date Performed: 09/26/2017 Time Performed: 11:38:02 PTAGE: 57 years EKG: Sinus rhythm NONSPECIFIC T-WAVE ABNORMALITY BORDERLINE ECG Compared to prior electrocardiogram, Nonspecific T wav e changes are more marked PREVIOUS TRACING : 08/03/2017 13.45 DOCTOR: Jeff Eastman Interpretating Date/Time 09/26/2017 20:37:26
[2017-09-26] MEDS: VENLAFAXINE HCL XR 75 MG CAP PO SCH (21:58)
[2017-09-26] MEDS: QUEtiapine FUMARATE 100 MG TAB PO SCH (21:59)
[2017-09-27] MEDS: traZODone HCL 50 MG TAB PO PRN (01:01)
[2017-09-27] MEDS: hydrOXYzine HCL 50 MG TAB PO PRN (01:09)
[2017-09-27 06:15] VITALS: BP 133/64; PULSE 81; RESP 17; TEMP 98.5; O2SAT 95
[2017-09-27] MEDS: QUEtiapine FUMARATE 25 MG TAB PO SCH (08:37)
[2017-09-27] MEDS: GABAPENTIN 100 MG CAP PO SCH ×4 (08:37→16:54)
[2017-09-27] MEDS: PANTOPRAZOLE SOD 40 MG DELAYED RELEASE TAB PO SCH (08:37)
[2017-09-27] MEDS ORDERED: LINZESS 290 MCG PO SCH (09:00)
[2017-09-27] MEDS: LINZESS 290 MCG PO SCH (09:00)
[2017-09-27 10:23] LABS: AUTOMATED NEUTROPHIL # 2.4 TH/MM3 (1.8-7.7); BASOPHIL % 0.8 % (0.0-2.0); EOSINOPHIL # 0.1 TH/MM3 (0-0.4); EOSINOPHIL % 1.7 % (0.0-4.0); HEMATOCRIT 36.2 % (35.0-46.0); HEMO FLAGS DIFF FINAL; LYMPH % 37.4 % (9.0-44.0); LYMPHOCYTE # 1.7 TH/MM3 (1.0-4.8); MEAN CELL VOLUME 89.3 FL (80.0-100.0); MEAN CORPUSCULAR HGB CONC 34.7 % (32.0-36.0); MONO % 7.3 % (0.0-8.0); NEUT % 52.8 % (16.0-70.0); PLATELET COUNT 192 TH/MM3 (150-450); RED BLOOD COUNT 4.06 MIL/MM3 (4.00-5.30); RED CELL DISTRIBUTION WIDTH 13.3 % (11.6-17.2); WHITE BLOOD COUNT 4.6 TH/MM3 (4.0-11.0)
[2017-09-27 10:47] LABS: ANION GAP 10 MEQ/L (5-15); AST (GOT) 12 U/L (15-37); BICARBONATE 26.5 MEQ/L (21.0-32.0); BLOOD UREA NITROGEN 11 MG/DL (7-18); CHLORIDE 104 MEQ/L (98-107); GLOMERULAR FILTRATION RATE 55 ML/MIN (>89); POTASSIUM 3.3 MEQ/L (3.5-5.1); SODIUM (NA) 140 MEQ/L (136-145)
[2017-09-27 11:15] LABS: ALKALINE PHOSPHATASE 109 U/L (45-117); ALT (GPT) 22 U/L (10-53); HDL CHOLESTEROL 59.7 MG/DL (40.0-60.0); LDL CHOLESTEROL 136 MG/DL (0-99); TOTAL BILIRUBIN ADULT 0.4 MG/DL (0.2-1.0)
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
[2017-09-27] MEDS ORDERED: MAGNESIUM HYDROXIDE SUSP 30 ML CUP PO PRN (12:45)
[2017-09-27] MEDS ORDERED: ACETAMINOPHEN 325 MG TAB PO PRN (12:45)
[2017-09-27] MEDS ORDERED: ALUMINUM/MAGNESIUM/SIMETH 30 ML CUP PO PRN (12:45)
--- NOTE | 2017-09-27 13:41 | EKG ---
Date Performed: 09/27/2017 Time Performed: 11:12:19 PTAGE: 57 years EKG: Baseline artifact present Sinus rhythm NORMAL ECG No significant change from prior electrocardiogram. NO PREVIOUS TRACING DOCTOR: Jeff Eastman Interpretating Date/Time 09/27/2017 13:41:09
[2017-09-27] MEDS: LORazepam 1 MG TAB PO PRN (14:43)
[2017-09-27 16:06] VITALS: BP 165/100; PULSE 87
[2017-09-27] MEDS ORDERED: cloNIDine HCL 0.1 MG TAB PO ONE (17:00)
[2017-09-27 17:58] LABS: HEMOGLOBIN A1a 1.3 %; HEMOGLOBIN A1b 0.9 %; HEMOGLOBIN Ao 84.4 %; HEMOGLOBIN F 1.3 %; HEMOGLOBIN LA1C 2.1 %; HEMOGLOBIN P3 3.7 %
[2017-09-27] MEDS: VENLAFAXINE HCL XR 75 MG CAP PO SCH (21:31)
[2017-09-27] MEDS: QUEtiapine FUMARATE 100 MG TAB PO SCH (21:31)
[2017-09-28 05:49] VITALS: BP 113/60; PULSE 73; RESP 17; TEMP 99; O2SAT 97
[2017-09-28] MEDS: PANTOPRAZOLE SOD 40 MG DELAYED RELEASE TAB PO SCH (08:19)
[2017-09-28] MEDS: GABAPENTIN 100 MG CAP PO SCH ×3 (08:19→17:34)
[2017-09-28] MEDS: QUEtiapine FUMARATE 25 MG TAB PO SCH (08:19)
[2017-09-28] MEDS: LINZESS 290 MCG PO SCH (08:23)
--- NOTE | 2017-09-28 10:57 | HHI.PYPN ---
Subjective Remarks Met with patient's daughter and patient along with counselor Aurelia Waller and medical student tony. Daughter shared with us her chaotic relationship with her mother. Including inappropriate medication use. patient's 12th contact with [facility] since May 11 of this year. Daughter has set boundaries with her willingness to maintain patient in her home including getting car returning to help manage finances and help with patient's chronic noncompliance with medication medical appointments and psychiatric appointments. We have also offered her [facility] placement. Patient is somewhat ambiguous about this. Continues marked manipulation on her part. We have given her over the weekend to make a decision on this and doing this time we will explore various [facility] options. Daughter shares that the patient has misuse benzodiazepines in the past we'll discontinue all Ativan continue her other medications Review of Systems Except as stated in HPI: all other systems reviewed are Neg Mental Status Examination Appearance: Appropriate Consciousness: Alert Orientation: x4 Motor Activity: Normal gait Speech: Unremarkable Language: Adequate Fund of Knowledge: Adequate Attention and Concentration: Adequate Memory: Unremarkable Mood: Sad, Anxious Affect: Sad, Anxious Thought Process & Associations: Intact Thought Content: Appropriate Hallucination Type: None Delusion Type: None Suicidal Ideation: Yes Suicidal Plan: Yes Suicidal Intention: Yes Homicidal Ideation: No Homicidal Plan: No Homicidal Intention: No Insight: Adequate Judgment: Adequate Results Vitals/IOs Vital Signs Date Time Temp Pulse Resp B/P (MAP) Pulse Ox O2 Delivery O2 Flow Rate FiO2 09/28/17 05:49 99.0 73 17 113/60 (77) 97 09/25/17 18:31 Room Air Assessment & Plan Problem List: (1) Severe major depression, single episode, without psychotic features ICD Codes: F32.2 - Major depressive disorder, single episode, severe without psychotic features Assessment & Plan Estimated LOS: days patient is somewhat manipulative and somewhat depressed, though it appears personality disorder traits becoming more more outstanding. Is set time stable for patient make decision whether she will agree with daughter's request for return to her daughter's home oral find patient in [facility] by early next week Justification for Cont. Inpt. At this time patient decompensate placed on lower level of care Discharge Planning Patient to make a decision by first part next week with her to agree with daughter returned her daughters who are allow us to find her nursing home/[facility] Request HC Surrog/Guard Advoc?: No Ethan Nair MD Sep 28, 2017 10:57
[2017-09-28] MEDS: hydrOXYzine HCL 50 MG TAB PO PRN ×2 (11:08→17:34)
[2017-09-28] MEDS: IBUPROFEN 800 MG TAB PO PRN (17:34)
[2017-09-28 18:17] VITALS: BP 149/82; PULSE 89; RESP 17; TEMP 97.8; O2SAT 97
[2017-09-28] MEDS: QUEtiapine FUMARATE 100 MG TAB PO SCH (21:39)
[2017-09-28] MEDS: VENLAFAXINE HCL XR 75 MG CAP PO SCH (21:40)
[2017-09-28] MEDS: traZODone HCL 50 MG TAB PO PRN (21:40)
[2017-09-29] MEDS: IBUPROFEN 800 MG TAB PO PRN ×2 (03:06→14:53)
[2017-09-29] MEDS: hydrOXYzine HCL 50 MG TAB PO PRN ×2 (03:06→14:53)
[2017-09-29 06:26] VITALS: BP 151/76; PULSE 70; RESP 18; TEMP 97.8; O2SAT 97
[2017-09-29] MEDS: GABAPENTIN 100 MG CAP PO SCH ×3 (08:24→17:10)
[2017-09-29] MEDS: PANTOPRAZOLE SOD 40 MG DELAYED RELEASE TAB PO SCH (08:24)
[2017-09-29] MEDS: LINZESS 290 MCG PO SCH (08:24)
[2017-09-29] MEDS: QUEtiapine FUMARATE 25 MG TAB PO SCH (08:24)
--- NOTE | 2017-09-29 10:59 | HHI.PYPN ---
Subjective Remarks Patient was seen and case discussed with nursing. Patient is less med seeking today. She describes various symptoms but there is a concern for exaggeration given her history. She says that she's feeling depressed and has suicidal ideation with no plan. These thoughts are fleeting. Describes her mood today is "I'm up and down." Mostly resting in bed throughout the day. Mental Status Examination Appearance: Appropriate Consciousness: Alert Orientation: x4 Motor Activity: Normal gait Speech: Unremarkable Language: Adequate Fund of Knowledge: Adequate Attention and Concentration: Adequate Memory: Unremarkable Mood: Sad Affect: Anxious Thought Process & Associations: Intact Thought Content: Appropriate Hallucination Type: None Delusion Type: None Suicidal Ideation: Yes (fleeting) Suicidal Plan: No Suicidal Intention: No Homicidal Ideation: No Homicidal Plan: No Homicidal Intention: No Insight: Adequate Judgment: Adequate Results Vitals/IOs Vital Signs Date Time Temp Pulse Resp B/P (MAP) Pulse Ox O2 Delivery O2 Flow Rate FiO2 09/29/17 06:26 97.8 70 18 151/76 (101) 97 09/25/17 18:31 Room Air Assessment & Plan Problem List: (1) Severe major depression, single episode, without psychotic features ICD Codes: F32.2 - Major depressive disorder, single episode, severe without psychotic features Assessment & Plan Continue current treatment plan Justification for Cont. Inpt. Patient will decompensate in a less restrictive setting Request HC Surrog/Guard Advoc?: No Woody Jauregui DO Sep 29, 2017 10:59
[2017-09-29 18:26] VITALS: BP 162/90; PULSE 92; RESP 18; TEMP 99.1; O2SAT 97
[2017-09-29] MEDS: QUEtiapine FUMARATE 100 MG TAB PO SCH (22:17)
[2017-09-29] MEDS: VENLAFAXINE HCL XR 75 MG CAP PO SCH (22:17)
[2017-09-30] MEDS: hydrOXYzine HCL 50 MG TAB PO PRN ×2 (04:32→16:00)
[2017-09-30 05:46] VITALS: BP 140/79; PULSE 74; RESP 17; TEMP 98.1; O2SAT 96
[2017-09-30] MEDS: PANTOPRAZOLE SOD 40 MG DELAYED RELEASE TAB PO SCH (09:18)
[2017-09-30] MEDS: LINZESS 290 MCG PO SCH (09:18)
[2017-09-30] MEDS: GABAPENTIN 100 MG CAP PO SCH ×3 (09:18→17:51)
[2017-09-30] MEDS: QUEtiapine FUMARATE 25 MG TAB PO SCH (09:18)
--- NOTE | 2017-09-30 11:52 | HHI.PYPN ---
Subjective Remarks Patient was seen and case discussed with nursing. Patient remains superficial and vague. Describes her mood today as "crummy." Some evidence of staff splitting. Says she is thinking about various life events throughout the day. Describes fleeting suicidal thoughts with no plan. Mental Status Examination Appearance: Appropriate Consciousness: Alert Orientation: x4 Motor Activity: Normal gait Speech: Unremarkable Language: Adequate Fund of Knowledge: Adequate Attention and Concentration: Adequate Memory: Unremarkable Mood: Sad Affect: Anxious Thought Process & Associations: Intact Thought Content: Appropriate Hallucination Type: None Delusion Type: None Suicidal Ideation: Yes (fleeting) Suicidal Plan: No Suicidal Intention: No Homicidal Ideation: No Homicidal Plan: No Homicidal Intention: No Insight: Adequate Judgment: Adequate Results Vitals/IOs Vital Signs Date Time Temp Pulse Resp B/P (MAP) Pulse Ox O2 Delivery O2 Flow Rate FiO2 09/30/17 05:46 98.1 74 17 140/79 (99) 96 Assessment & Plan Problem List: (1) Severe major depression, single episode, without psychotic features ICD Codes: F32.2 - Major depressive disorder, single episode, severe without psychotic features Assessment & Plan Continue current treatment plan Justification for Cont. Inpt. Patient will decompensate in a less restrictive setting Request HC Surrog/Guard Advoc?: No Woody Jauregui DO Sep 30, 2017 11:52
[2017-09-30] MEDS: QUEtiapine FUMARATE 100 MG TAB PO SCH (21:52)
[2017-09-30] MEDS: VENLAFAXINE HCL XR 75 MG CAP PO SCH (21:52)
[2017-09-30 22:00] VITALS: BP 122/81; PULSE 95; RESP 18; TEMP 99.1
[2017-09-30] MEDS: traZODone HCL 50 MG TAB PO PRN (23:13)
[2017-10-01] MEDS: hydrOXYzine HCL 50 MG TAB PO PRN (03:53)
[2017-10-01 06:13] VITALS: BP 144/80; PULSE 95; RESP 17; TEMP 98; O2SAT 98
[2017-10-01] MEDS: LINZESS 290 MCG PO SCH (09:09)
[2017-10-01] MEDS: PANTOPRAZOLE SOD 40 MG DELAYED RELEASE TAB PO SCH (09:10)
[2017-10-01] MEDS: GABAPENTIN 100 MG CAP PO SCH (09:10)
[2017-10-01] MEDS: QUEtiapine FUMARATE 25 MG TAB PO SCH (09:10)
[2017-10-01] MEDS ORDERED: QUET1TAB8 PO (10:06)
[2017-10-01] MEDS ORDERED: TIZA4 PO (10:06)
[2017-10-01] MEDS ORDERED: VENL75XR PO (10:06)
[2017-10-01] MEDS ORDERED: GABA100C4 PO (10:06)
[2017-10-01] MEDS ORDERED: AMLO10 PO (10:06)
[2017-10-01] MEDS ORDERED: HYDR50CA PO (10:06)
[2017-10-01] MEDS ORDERED: PANT40TA3 PO (10:06)
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
--- NOTE | 2017-10-01 11:45 | PD.TTN ---
Patient Problems 1. Discharge planning 2. Medication compliance 3. Knowledge deficit 4. Lack of coping skills Progress Toward Goals Provider Present: Dr. Marcia Nair Provider Input: Dr. Nair's treatment team met to discuss patient's medication, treatment plan, and discharge. Patient is doing better and will be discharged home. Nurse(s) Input: Patient's nurse Buzz reports patient going home today, attention seeking and uncooperative. Psychiatric Counselors Present: SIA Emanuel Psych Therapist Input: Patient presents childlike, intrusive, attention seeking, affect blunted. Patient denies suicidal and homicidal ideation. Patient does not present with internal stimulation or with any delusional content. Patient will follow up with [facility] for psychiatric follow up Group Spec/RT/OT/STRANGE Present: Darryl Mao OT Group Spec/RT/OT/STRANGE Input: Patient participates in 50 percent of group activities. Lizett Kim Oct 01, 2017 11:45
== END 2017-10-01 11:30 | disposition home or self-care (01) | DRG 885 ==
LOC: NEPJ 15:58 → NEDA 09-26 11:05 → H260 09-26 12:27
PROVIDERS: ADMIT Psychiatry & Neurology Psychiatry; ATTEND Psychiatry & Neurology Psychiatry
DX: F32.2 Major depressive disorder, single episode, severe without psychotic features (principal); Z91.14 Patient's other noncompliance with medication regimen; Z91.19 Patient's noncompliance with other medical treatment and regimen; I10 Essential (primary) hypertension; J44.9 Chronic obstructive pulmonary disease, unspecified; R01.1 Cardiac murmur, unspecified; K58.9 Irritable bowel syndrome, unspecified; M79.7 Fibromyalgia
CPT/HCPCS: 80053; 80061; 80307; 81001; 82306; 82607; 83036; 84443; 85025; 93005

== ENCOUNTER 2017-10-01 12:35 | Emergency (ER) | payer OTHER ==
[~2017-10-01 12:35] MED LIST changes: -BUTA1CAP PO; -COLY4000S PO; +HYDR50CA PO; +LINA145C PO; -QUET1TAB7 PO; +SERO25TA PO; -VENL1CAP38 PO; -VENL25TA PO; +VENL75XR PO
[2017-10-01 13:00] VITALS: BP 126/80; PULSE 97; RESP 15; TEMP 98.2; O2SAT 99
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
[2017-10-01 17:47] VITALS: BP 156/80; PULSE 77; RESP 18; TEMP 97.3; TEMP 98.1; O2SAT 100
[2017-10-01] MEDS ORDERED: diphenhydrAMINE HCL 50 MG CAP PO ONE (21:00)
[2017-10-01 21:41] VITALS: BP 157/90; PULSE 88; RESP 16; TEMP 98.8; O2SAT 96
[2017-10-02] MEDS ORDERED: QUEtiapine FUMARATE 100 MG TAB PO ONE (01:15)
[2017-10-02] MEDS ORDERED: VENLAFAXINE HCL XR 75 MG CAP PO ONE (01:15)
[2017-10-02] MEDS ORDERED: LORazepam 1 MG TAB PO ONE (01:15)
[2017-10-02 02:10] VITALS: BP 134/80; PULSE 95; RESP 16; TEMP 98.6; O2SAT 97
--- NOTE | 2017-10-02 09:55 | PD ---
History of Present Illness Chief Complaint: Depression Time Seen by Provider: 09:15 Travel History International Travel<30 Days: No Contact w/Intl Traveler<30days: No Known affected area: No Legal Status Legal Status: Voluntary History of Present Illness: 57-year-old female presents voluntarily with complaints of suicidality. Patient is known to this physician and this physician was called by Dr. Nair yesterday, after patient was discharged and did not cooperate with plan of making daughter power of emergency dispatcher. When this was decided by the patient , the daughter left the patient at the attorneys office. Patient found her way back to this facility and made complaints of suicidality, both then and now. This physician and Dr. Nair find the patient to be very manipulative. For example, the patient's statement immediately after telling this physician that she doesn't want to live anymore is that she only wants to live with her daughter and grandchild. She makes multiple excuses as to why she did not sign power of emergency dispatcher to her daughter. She would like the document changed for her to sign it, again contradicting her statements of wanting to . She would like to be admitted, but to a different physician then Dr. Nair, again contradicting her statements that she wants to . However, despite patient's manipulativeness, because she may act out, this physician is attempting to get her admitted to a different facility. In this manner, this physician hopes to stop enabling the patient and not do something which is ultimately counter therapeutic. PFSH Past Medical History Autoimmune Disease: Yes (fibromyaliga) Anxiety: Yes Depression: Yes Cancer: No Cardiovascular Problems: Yes (HTN) Diabetes: No Diminished Hearing: No Endocrine: No Fibromyalgia: Yes Gastrointestinal Disorders: Yes (IBS) Genitourinary: No Headaches: Yes Hypertension: Yes Immune Disorder: Yes Implanted Vascular Access Dvce: No Musculoskeletal: No Neurologic: No Psychiatric: Yes (Schizophrenia) Reproductive: No Respiratory: No Immunizations Current: Yes Migraines: Yes Seizures: No Thyroid Disease: No Past Surgical History Section: Yes Hysterectomy: Yes (PARTIAL) Other Surgery: Yes Psychiatric History Psychiatric History Hx Psychiatric Treatment[place] [facility] [place] 08/29-08/31/31, 10/06/17-10/01/17 History of Inpatient Treatment: Yes Guns or firearms in home: No Social History Hx Alcohol Use: No Hx Tobacco Use: No Hx Substance Use: No Hx of Substance Use Treatment: No Allergies-Medications (Allergen,Severity, Reaction): Coded Allergies: prednisone (Verified Allergy, Unknown, Hotflash, 09/18/17) penicillin G (Verified Adverse Reaction, Mild, HOT AND VOMITS, 09/18/17) Reported Meds & Prescriptions Reported Meds & Active Scripts Active Effexor XR 24 HR (Venlafaxine HCl) 75 Mg Cap 75 Mg PO HS Zanaflex (Tizanidine HCl) 4 Mg Tab 4 Mg PO HS Quetiapine (Quetiapine Fumarate) 100 Mg Tab 100 Mg PO BID Pantoprazole (Pantoprazole Sodium) 40 Mg Tab 40 Mg PO DAILY Hydroxyzine Pamoate 50 Mg Cap 50 Mg PO BID Gabapentin 100 Mg Cap 100 Mg PO TID Norvasc (Amlodipine Besylate) 10 Mg Tab 10 Mg PO DAILY Effexor (Venlafaxine HCl) 75 Mg Tab 75 Mg PO HS 30 Days Gabapentin 100 Mg Cap 100 Mg PO TID 30 Days Norvasc (Amlodipine Besylate) 10 Mg Tab 10 Mg PO DAILY 30 Days Zanaflex (Tizanidine HCl) 4 Mg Tab 4 Mg PO HS 30 Days Ativan (Lorazepam) 1 Mg Tab 1 Mg PO Q12HR 30 Days Pantoprazole (Pantoprazole Sodium) 40 Mg Tab 40 Mg PO DAILY 30 Days Reported Linzess (Linaclotide) 145 Mcg Cap 145 Mcg PO DAILY Seroquel (Quetiapine Fumarate) 25 Mg Tab 75 Mg PO DAILY Zofran Odt (Ondansetron Odt) 4 Mg Tab 4 Mg SL Q8HR PRN Clonidine (Clonidine HCl) 0.1 Mg Tab 0.1 Mg PO TID PRN Review of Systems Except as stated in HPI: all other systems reviewed are Neg Mental Status Examination Appearance: Appropriate Consciousness: Alert Orientation: x4 Motor Activity: Normal gait Speech: Unremarkable Language: Adequate Fund of Knowledge: Adequate Attention and Concentration: Adequate Memory: Unremarkable Mood: Appropriate Affect: Appropriate Thought Process & Associations: Intact Thought Content: Appropriate Hallucination Type: None Delusion Type: None Suicidal Ideation: Yes Suicidal Plan: Yes Suicidal Intention: No Homicidal Ideation: No Homicidal Plan: No Homicidal Intention: No Insight: Adequate Judgment: Adequate MDM Medical Decision Making Medical Record Reviewed: Yes Assessment/Plan Patient interviewed at bedside, medical record reviewed including multiple admissions, case discussed with Dr. Nair and nurse Yared. This physician is attempting to find a different facility to accept patient outside this area. In so doing, it is hoped patient will not keep attempting to manipulate the system for her own inappropriate purposes. This physician understands the patient may act out in a way harmful to herself, but this risk is neither predictable or avoidable. To readmit the patient to this facility is counter therapeutic. Patient needs to ultimately work out differences with her daughter if she wants to live with daughter. Orders Orders Diet Regular Basic (10/01/17 Dinner) Diet Regular Basic (10/02/17 Breakfast) Diphenhydramine (Benadryl) (10/01/17 21:00) Amlodipine (Norvasc) (10/01/17 21:45) Quetiapine (Seroquel) (10/02/17 01:15) Venlafaxine Xr (Effexor Xr) (10/02/17 01:15) Lorazepam (Ativan) (10/02/17 01:15) Results Vital Signs Date Time Temp Pulse Resp B/P (MAP) Pulse Ox O2 Delivery O2 Flow Rate FiO2 10/02/17 02:10 98.6 95 16 134/80 (98) 97 Room Air 10/01/17 21:41 98.8 88 16 157/90 (112) 96 Room Air 10/01/17 17:47 98.1 77 18 156/80 (105) 100 Room Air 10/01/17 13:00 98.2 97 15 126/80 (95) 99 Diagnosis Primary Impression: Adjustment disorder with mixed disturbance of emotions and conduct Additional Impression: Malingering Condition: Stable Problem Qualifiers Donte Friedman MD Oct 02, 2017 09:55
[2017-10-02 10:44] VITALS: BP 142/76; PULSE 82; RESP 18; O2SAT 98
[2017-10-02 11:37] VITALS: BP 150/82
== END 2017-10-02 12:06 ==
LOC: NEPJ 12:35 → NEPD 10-02 12:06
DX: F43.23 Adjustment disorder with mixed anxiety and depressed mood (principal); F43.25 Adjustment disorder with mixed disturbance of emotions and conduct; F41.8 Other specified anxiety disorders; F20.9 Schizophrenia, unspecified; Z76.5 Malingerer [conscious simulation]
CPT/HCPCS: 99285; Q0163

== ENCOUNTER 2017-11-21 16:05 | Emergency (ER) | payer OTHER ==
[~2017-11-21] VITALS: Ht 165.1 cm; Wt 79.1 kg
[~2017-11-21 16:05] MED LIST changes: -SERO100T PO; -VIST50CA PO
[2017-11-21 16:25] VITALS: BP 153/74; PULSE 65; RESP 16; TEMP 98.2; O2SAT 98
--- NOTE | 2017-11-21 17:54 | PD ---
HPI Chief Complaint: Headache Time Seen by Provider: 17:33 Travel History International Travel<30 days: No Contact w/Intl Traveler<30days: No Traveled to known affect area: No History of Present Illness HPI 57-year-old female presents the emergency department with story that she was dropped off at the airport this morning by her daughter supposedly to fly back to [place], where she lives and found that she did not have a ticket at the airport, and her daughter had taken her wallet with ID. She states she thinks her daughter has been stealing her disability checks. Patient states she checks her blood pressure was elevated and she was concerned she had a headache. Patient normally takes clonidine and hydralazine for her blood pressure. Patient took her last meds at 12:30 this afternoon. Blood pressure was 153/76 in triage. She states her headache is like a band around her head. She states her headache is about 6 out of 10. She is concerned that she has nowhere to go at this time. The patient has no other acute medical complaints. She is allergic to prednisone, and penicillin. PFSH Past Medical History Autoimmune Disease: Yes (fibromyaliga) Anxiety: Yes Depression: Yes Cancer: No Cardiovascular Problems: Yes (HTN) Diabetes: No Diminished Hearing: No Endocrine: No Fibromyalgia: Yes Gastrointestinal Disorders: Yes (IBS) Genitourinary: No Headaches: Yes Hypertension: Yes Immune Disorder: Yes Implanted Vascular Access Dvce: No Musculoskeletal: No Neurologic: No Psychiatric: Yes (Schizophrenia) Reproductive: No Respiratory: No Immunizations Current: Yes Migraines: Yes Seizures: No Thyroid Disease: No Past Surgical History Section: Yes Hysterectomy: Yes (PARTIAL) Other Surgery: Yes Social History Alcohol Use: No Tobacco Use: No Substance Use: No Allergies-Medications (Allergen,Severity, Reaction): Coded Allergies: prednisone (Verified Allergy, Unknown, Hotflash, 09/18/17) penicillin G (Verified Adverse Reaction, Mild, HOT AND VOMITS, 09/18/17) Reported Meds & Prescriptions Reported Meds & Active Scripts Active Effexor XR 24 HR (Venlafaxine HCl) 75 Mg Cap 75 Mg PO HS Zanaflex (Tizanidine HCl) 4 Mg Tab 4 Mg PO HS Quetiapine (Quetiapine Fumarate) 100 Mg Tab 100 Mg PO BID Pantoprazole (Pantoprazole Sodium) 40 Mg Tab 40 Mg PO DAILY Hydroxyzine Pamoate 50 Mg Cap 50 Mg PO BID Gabapentin 100 Mg Cap 100 Mg PO TID Norvasc (Amlodipine Besylate) 10 Mg Tab 10 Mg PO DAILY Effexor (Venlafaxine HCl) 75 Mg Tab 75 Mg PO HS 30 Days Gabapentin 100 Mg Cap 100 Mg PO TID 30 Days Norvasc (Amlodipine Besylate) 10 Mg Tab 10 Mg PO DAILY 30 Days Zanaflex (Tizanidine HCl) 4 Mg Tab 4 Mg PO HS 30 Days Ativan (Lorazepam) 1 Mg Tab 1 Mg PO Q12HR 30 Days Pantoprazole (Pantoprazole Sodium) 40 Mg Tab 40 Mg PO DAILY 30 Days Reported Linzess (Linaclotide) 145 Mcg Cap 145 Mcg PO DAILY Seroquel (Quetiapine Fumarate) 25 Mg Tab 75 Mg PO DAILY Zofran Odt (Ondansetron Odt) 4 Mg Tab 4 Mg SL Q8HR PRN Clonidine (Clonidine HCl) 0.1 Mg Tab 0.1 Mg PO TID PRN Review of Systems Except as stated in HPI: all other systems reviewed are Neg General / Constitutional: No: Fever Eyes: No: Visual changes HENT: Positive: Headaches, No: Vertigo, Lightheadedness, Sore Throat, Rhinitis , Rhinorrhea, Congestion, Nosebleed, Neck Stiffness, Neck Pain, Masses, Dental Difficulties, Earache Cardiovascular: No: Chest Pain or Discomfort Respiratory: No: Shortness of Breath Gastrointestinal: No: Abdominal Pain Genitourinary: No: Dysuria Musculoskeletal: No: Pain Skin: No Rash Neurologic: No: Weakness Psychiatric: No: Depression Endocrine: No: Polydipsia Hematologic/Lymphatic: No: Easy Bruising Physical Exam Narrative GENERAL: Patient appears alert and oriented 3. She appears in mild distress. Visibly upset about the situation. SKIN: Warm and dry. Normal color. Normal turgor. HEAD: Atraumatic. Normocephalic. EYES: Pupils equal and round. No scleral icterus. No injection or drainage. ENT: No nasal bleeding or discharge. Mucous membranes pink and moist. Pharynx is clear. Airway is patent. NECK: Trachea midline. No JVD. CARDIOVASCULAR: Regular rate and rhythm. RESPIRATORY: No accessory muscle use. Clear to auscultation. Breath sounds equal bilaterally. GASTROINTESTINAL: Abdomen soft, non-tender, nondistended. Hepatic and splenic margins not palpable. MUSCULOSKELETAL: Extremities without clubbing, cyanosis, or edema. No obvious deformities. NEUROLOGICAL: Awake and alert. No obvious cranial nerve deficits. Motor grossly within normal limits. Five out of 5 muscle strength in the arms and legs. Normal speech. PSYCHIATRIC: Appropriate mood and affect; insight and judgment normal. Data Data Last Documented VS Vital Signs Date Time Temp Pulse Resp B/P (MAP) Pulse Ox O2 Delivery O2 Flow Rate FiO2 11/21/17 16:25 98.2 65 16 153/74 (100) 98 Room Air Orders Orders Clonidine (Catapres) (11/21/17 18:00) Hydralazine (Apresoline) (11/21/17 18:00) Lorazepam (Ativan) (11/21/17 18:00) [facility] Medical Decision Making Medical Screen Exam Complete: Yes Emergency Medical Condition: Yes Differential Diagnosis Headache. Hypertension. Social stress. Narrative Course Patient is given her normal dose of clonidine 0.1 mg by mouth. Patient is given 25 mg hydralazine by mouth. Patient is given 0.5 mg lorazepam by mouth. Further medical testing was not felt warranted based on the patient's history and physical. The editor publications was called to possibly assist the patient with her social issues. Case management was also called regarding the patient's current social crisis. Patient is felt to be medically stable for discharge at this time. Patient will seek a ride from local family members. Diagnosis Primary Impression: Headache Qualified Codes: G44.209 - Tension-type headache, unspecified, not intractable Additional Impressions: Other social stressor Hypertension Qualified Codes: I10 - Essential (primary) hypertension Referrals: [facility] Patient Instructions: Acute Headache (ED), General Instructions Additional Instructions: Patient is felt to be medically stable at discharge. Med/Other Pt SpecificInfo: No Change to Meds Disposition: 01 DISCHARGE HOME Condition: Stable Darryl Vyas Nov 21, 2017 17:54
[2017-11-21] MEDS ORDERED: LORazepam 0.5 MG TAB PO ONE (18:00)
[2017-11-21] MEDS ORDERED: cloNIDine HCL 0.1 MG TAB PO ONE (18:00)
[2017-11-21] MEDS ORDERED: hydrALAZINE HCL 25 MG TAB PO ONE (18:00)
--- NOTE | 2017-11-21 18:32 | PD ---
Data Data Last Documented VS Vital Signs Date Time Temp Pulse Resp B/P (MAP) Pulse Ox O2 Delivery O2 Flow Rate FiO2 11/21/17 20:57 11/21/17 20:07 64 18 99 Room Air 11/21/17 16:25 98.2 Orders Orders Clonidine (Catapres) (11/21/17 18:00) Hydralazine (Apresoline) (11/21/17 18:00) Lorazepam (Ativan) (11/21/17 18:00) Ed Discharge Order (11/21/17 18:54) Benzonatate (Tessalon) (11/21/17 20:45) MDM Supervised Visit with LEE: Yes Narrative Course I, Dr. Cristobal, have reviewed the advance practice practitioner's documentation and am in agreement, met with the patient face to face, made the diagnosis, and the medical decision making was done by me. *My assessment and Findings: Patient was seen and examined by Lucho Vyas PA-C for complaints of headache, patient has multiple other complaints to me including chest congestion cough. The patient appears to have fairly poor social standing and is accusing her daughter of stealing her checks. She states her headache is only mild, bandlike across her forehead, no thunderclap presentation and no nuchal rigidity. GENERAL: Well-developed well-nourished no obvious distress SKIN: Focused skin assessment warm/dry. HEAD: Atraumatic. Normocephalic. EYES: Pupils equal and round. No scleral icterus. No injection or drainage. ENT: No nasal bleeding or discharge. Mucous membranes pink and moist. NECK: Trachea midline. No JVD. CARDIOVASCULAR: Regular rate and rhythm. No murmur appreciated. RESPIRATORY: No accessory muscle use. Clear to auscultation. Breath sounds equal bilaterally. GASTROINTESTINAL: Abdomen soft, non-tender, nondistended. Hepatic and splenic margins not palpable. MUSCULOSKELETAL: No obvious deformities. No clubbing. No cyanosis. No edema. NEUROLOGICAL: Awake and alert. No nerves II through over grossly intact and nonfocal, 5 out of 5 strength in all 4 extremity's. PSYCHIATRIC: Appropriate mood and affect; insight and judgment normal. Law enforcement was called per patient's request. The patient has a reassuring physical exam for me, vital signs within normal limits, her symptoms do not suggest an emergent cause. The patient seems more concerned that she does not have a place to stay tonight. She was given the phone to call friends and case management has been counseled as well. There is no indication further medical workup at this time and will continue to find the patient discharge. Diagnosis Primary Impression: Headache Qualified Codes: G44.209 - Tension-type headache, unspecified, not intractable Additional Impressions: Other social stressor Hypertension Qualified Codes: I10 - Essential (primary) hypertension Med/Other Pt SpecificInfo: Prescription(s) given Scripts Benzonatate (Tessalon Perles) 100 Mg Cap 100 MG PO TID Y for COUGH, #20 CAP 0 Refills Prov: Jcarlos Cristobal MD 11/21/17 Disposition: 01 DISCHARGE HOME Condition: Stable Jcarlos Cristobal MD Nov 21, 2017 18:32
[2017-11-21 20:07] VITALS: BP 184/88; PULSE 64; RESP 18; O2SAT 99
[2017-11-21] MEDS ORDERED: BENZ100 PO (20:42)
[2017-11-21] MEDS ORDERED: BENZONATATE 100 MG CAP PO ONE (20:45)
== END 2017-11-21 21:00 | disposition home or self-care (01) ==
LOC: NEPD 16:05
DX: G44.209 Tension-type headache, unspecified, not intractable (principal); I10 Essential (primary) hypertension; R05 Cough; F20.9 Schizophrenia, unspecified; F32.9 Major depressive disorder, single episode, unspecified; F41.9 Anxiety disorder, unspecified; K58.9 Irritable bowel syndrome, unspecified; M79.7 Fibromyalgia
CPT/HCPCS: 99283